=== PATIENT | male | born 1940 | race Caucasian/White ===

== ENCOUNTER 2018-10-14 17:00 | Inpatient (IN) ==
[2018-10-14] MEDS ORDERED: Vancomycin Inj 1,000 MG in Sodium Chlor 0.9% Inj 250 ML IV.SIG ONE (18:37)
[2018-10-14 18:58] LABS: Baso % (Auto) 0.4 % (0.0-2.0); Eos # (Auto) 0.1 th/mm3 (0.0-0.4); Eos % (Auto) 1.2 % (0.0-4.0); Hematocrit 34.6 % (39.0-51.0); Hemoglobin 11.3 gm/dL (13.0-17.0); Lymph # (Auto) 0.6 th/mm3 (1.0-4.8); Lymph % (Auto) 7.5 % (9.0-44.0); Mean Corpuscular HGB Conc 32.7 % (32.0-36.0); Mean Corpuscular Hemoglobin 28.5 pg (27.0-34.0); Mean Corpuscular Volume 87.1 fL (80.0-100.0); Mono % (Auto) 12.1 % (0.0-8.0); Neut # (Auto) 6.3 th/mm3 (1.8-7.7); Neut % (Auto) 78.8 % (16.0-70.0); Platelet Count 197 th/mm3 (150-450); Red Blood Count 3.97 mil/mm3 (4.50-5.90); Red Cell Distribution Width 18.6 % (11.6-17.2)
[2018-10-14 19:11] LABS: Albumin 2.7 g/dL (3.4-5.0); Anion Gap 8 meq/L (5-15); Aspartate Aminotransferase 20 U/L (15-37); Blood Urea Nitrogen 24 mg/dL (7-18); Calcium 8.4 mg/dL (8.5-10.1); Carbon Dioxide 29.7 meq/L (21.0-32.0); Chloride 98 meq/L (98-107); Glomerular Filtration Rate 58 mL/min (>89); Glucose,Random 297 mg/dL (74-106); Potassium 3.9 meq/L (3.5-5.1); Sodium 136 meq/L (136-145)
[2018-10-14 19:12] LABS: Alanine Aminotransferase 16 U/L (12-78)
[2018-10-14 19:14] LABS: Alkaline Phosphatase 138 U/L (45-117); Total Protein 7.3 g/dL (6.4-8.2)
--- NOTE | 2018-10-14 19:43 | ED ---
HPI General Chief complaint: Extremity Injury, Lower Stated complaint: feet/leg swollen Time Seen by Provider: 10/14/18 18:31 Source: patient Mode of arrival: ambulatory Limitations: no limitations History of Present Illness HPI narrative: Patient is a 78-year-old male who comes in complaining of pain and swelling to his left leg. 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 He is a chronic wound to the right foot and has some chronic discoloration of both legs due to peripheral vascular disease. His noticed that yesterday his foot became increasingly more red and today it started oozing. He does have some pain to this foot. He denies fever or chills. Severity is moderate. Related Data Home Medications Medication Instructions Recorded Confirmed clopidogrel [Plavix] 75 mg PO DAILY 10/14/18 10/14/18 duloxetine 20 mg PO DAILY 10/14/18 10/14/18 furosemide 40 mg PO DAILY 10/14/18 10/14/18 gabapentin 600 mg PO TID 10/14/18 10/14/18 insulin regular human [Novolin R 1 sliding scale dose SUBCUT UD 10/14/18 Regular U-100 Insuln] losartan 100 mg PO DAILY 10/14/18 10/14/18 simvastatin 20 mg PO QPM 10/14/18 10/14/18 warfarin 4.5 mg PO DAILY 10/14/18 10/14/18 Allergies Allergy/AdvReac Type Severity Reaction Status Date / Time amitriptyline Allergy Severe Bleeding Verified 10/14/18 18:15 codeine Allergy Mild NAUSEA Verified 10/14/18 18:15 VOMITING gabapentin Allergy Unknown TOO MUCH Verified 10/14/18 18:15 CONFUSION hydromorphone AdvReac Severe Hallucinati Unverified 05/30/17 17:51 ons;Confusi on *MDRO Multi-Drug Resistant Allergy Unknown Congestion Uncoded 10/14/18 18:15 Organism Review of Systems ROS: all other systems reviewed are negative Constitutional Denies chills and Denies fever(s) ENT Denies dizziness Cardiovascular Denies chest pain and Denies dyspnea Respiratory Denies cough and Denies dyspnea Gastrointestinal Denies nausea and Denies vomiting Musculoskeletal Denies myalgias and Denies arthralgias Integumentary/Breasts Reports change in pigmentation, Reports sores and Reports wounds Neurologic Denies focal weakness and Denies numbness [facility] Medical History Medical History CHF (congestive heart failure) (Acute) Depression (Acute) Diabetes (Acute) HTN (hypertension) (Acute) Hypercholesteremia (Acute) Neuropathy (Acute) Social History Social History Substance History: No History of Abuse Second Hand Smoke Exposure: No Smoking Status: Never smoker How Often Do You Have a Drink Containing Alcohol: Monthly or less Recent Travel in [facility] within the Last 8 Weeks: No Recent Out of Country Travel within the Last 8 Weeks: No Immunization History Tetanus Immunization: >5 Years Exam Narrative Exam Narrative: GENERAL: Awake and alert, no acute distress. SKIN: Redness and blistering of the left foot. Oozing from wounds to the foot. HEAD: Atraumatic. Normocephalic. EYES: Pupils equal and round. No scleral icterus. No injection or drainage. ENT: Mucous membranes pink and moist. NECK: Trachea midline. No JVD. CARDIOVASCULAR: Regular rate and rhythm. No murmur appreciated. RESPIRATORY: No accessory muscle use. Clear to auscultation. Breath sounds equal bilaterally. GASTROINTESTINAL: Abdomen soft, non-tender, nondistended. MUSCULOSKELETAL: No obvious deformities. No clubbing. No cyanosis. Bilateral lower extremity edema. Left pedal pulses not palpable, but can be heard with Doppler. There is partial amputation of the right foot. NEUROLOGICAL: Awake and alert. No obvious cranial nerve deficits. Motor grossly within normal limits. Normal speech. PSYCHIATRIC: Appropriate mood and affect; insight and judgment normal. Course Initial Documented Vital Signs Temperature 98.3 F 10/14/18 17:04 Pulse Rate 88 10/14/18 17:04 Respiratory Rate 20 10/14/18 17:04 Blood Pressure 156/72 H 10/14/18 17:04 Pulse Oximetry 96 10/14/18 17:04 Last Documented Vital Signs Temperature 98.3 F 10/14/18 17:04 Pulse Rate 64 10/14/18 19:34 Respiratory Rate 18 10/14/18 19:34 Blood Pressure 154/77 H 10/14/18 19:34 Pulse Oximetry 98 10/14/18 19:34 Medical Decision Making MDM Narrative Medical decision making narrative: Patient is a 78-year-old male who comes in complaining of redness, pain, oozing from his left foot. Exam shows large area of erythema with oozing of yellow pus. IV established, labs sent. Labs show normal white blood cell count, however neutrophil count is elevated. Patient given vancomycin. I believe he would benefit from at least an observation stay at this point. Admitted for further management. Medical Screen Exam Complete: Yes Emergency Medical Condition: Yes Differential Diagnosis Differential Diagnosis: Cellulitis versus abscess versus peripheral vascular disease Medical Records Medical records reviewed: Yes I reviewed the patient's medical records. Lab Data Lab results reviewed: Yes I reviewed the patient's lab results. Result diagrams: 10/14/18 18:42 10/14/18 18:42 Lab Results 10/14/18 10/14/18 10/14/18 Range/Units 18:42 18:42 18:42 WBC 8.0 (4.0-11.0) th/mm3 RBC 3.97 L (4.50-5.90) mil/mm3 Hgb 11.3 L (13.0-17.0) gm/dL Hct 34.6 L (39.0-51.0) % MCV 87.1 (80.0-100.0) fL MCH 28.5 (27.0-34.0) pg MCHC 32.7 (32.0-36.0) % RDW 18.6 H (11.6-17.2) % Plt Count 197 (150-450) th/mm3 MPV 9.0 (7.0-11.0) fL Neut % (Auto) 78.8 H (16.0-70.0) % Lymph % (Auto) 7.5 L (9.0-44.0) % [place] % (Auto) 12.1 H (0.0-8.0) % Eos % (Auto) 1.2 (0.0-4.0) % Baso % (Auto) 0.4 (0.0-2.0) % Neut # (Auto) 6.3 (1.8-7.7) th/mm3 Lymph # (Auto) 0.6 L (1.0-4.8) th/mm3 [place] # (Auto) 1.0 H (0.0-0.9) th/mm3 Eos # (Auto) 0.1 (0.0-0.4) th/mm3 Baso # (Auto) 0.0 (0.0-0.2) th/mm3 WBC Differential . Differential Comment Auto diff final Sodium 136 (136-145) meq/L Potassium 3.9 (3.5-5.1) meq/L Chloride 98 (98-107) meq/L Carbon Dioxide 29.7 (21.0-32.0) meq/L Anion Gap 8 (5-15) meq/L BUN 24 H (7-18) mg/dL Creatinine 1.22 (0.60-1.30) mg/dL Estimated GFR 58 L (>89) mL/min Random Glucose 297 H (74-106) mg/dL Lactic Acid 1.3 (0.4-2.0) mmol/L Calcium 8.4 L (8.5-10.1) mg/dL Total Bilirubin 0.9 (0.2-1.0) mg/dL AST 20 (15-37) U/L ALT 16 (12-78) U/L Alkaline Phosphatase 138 H (45-117) U/L Total Protein 7.3 (6.4-8.2) g/dL Albumin 2.7 L (3.4-5.0) g/dL Discharge Plan Discharge Disposition Patient Disposition: ED Admit(ED Internal Use Only) Discharge Condition Condition: Stable Discharge Details Diagnosis: Cellulitis Physicians Team ED Provider: Kenya Villafuerte Primary Care Provider: UNKNOWN, Rxs /Orders / Referrals /Forms Prescriptions: No Action furosemide 40 mg Tablet 40 mg PO DAILY RF: 0 gabapentin 600 mg Tablet 600 mg PO TID RF: 0 clopidogrel [Plavix] 75 mg Tablet 75 mg PO DAILY RF: 0 warfarin 4 mg Tablet 4.5 mg PO DAILY RF: 0 simvastatin 20 mg Tablet 20 mg PO QPM RF: 0 insulin regular human [Novolin R Regular U-100 Insuln] 100 unit/mL Solution 1 sliding scale dose SUBCUT UD RF: 0 losartan 100 mg Tablet 100 mg PO DAILY RF: 0 duloxetine 20 mg Capsule,Delayed Release(Dr/Ec) 20 mg PO DAILY RF: 0 Discharge Interventions Interventions: Vital Signs Last Done: 10/14/18 19:34 Status ED Status: With Doctor
--- NOTE | 2018-10-14 20:03 | XR ---
EXAM DATE: 10/14/2018 7:48 PM EST AGE/SEX: 78 years / Male INDICATIONS: Swelling, discolored, redness, weeping sores entire foot. CLINICAL DATA: This is the patient's initial encounter. Patient reports that signs and symptoms have been present for 3 days and indicates a pain score of 10/10. MEDICAL/SURGICAL HISTORY: Diabetes. Diabetes mellitus type II. . Diabetic ulcer debridement ri ght foot. Removal 5th metatarsal left foot. COMPARISON: No prior exams available for comparison. FINDINGS: There is amputation of the distal fifth metatarsal and toe. Extensive vascular calcifications present . Mild to moderate osteoarthritis. No acute fracture or dislocation. No bony destructive changes. CONCLUSION: Amputation fifth toe and metatarsal as above. No bony destructive changes. No acute fracture. Electronically signed by: Wil Camarena MD Board Certified Radiologist 10/14/2018 8:01 PM EST
[2018-10-14] MEDS ORDERED: Vancomycin Consult Pharmacy 1 EACH OTHER SCH (21:00)
[2018-10-14] MEDS ORDERED: Dextrose 50% in Water 50 ML Vial IV.PUSH PRN (21:09)
--- NOTE | 2018-10-14 21:09 | P.HP ---
History of Present Illness Service: [facility] Primary Care Physician: UNKNOWN Chief Complaint: 2 days of increasing swelling redness and oozing left foot and lower leg History of Present Illness: 78-year-old male who comes in complaining of pain and swelling to his left lower extremity. 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 Has chronic discoloration to both lower extremities due to severe peripheral vascular disease. Yesterday his noticed his foot becoming increasingly been more red and it started to ooze this was the left foot with pain to that area he denies fever or chills. Patient's lab work is essentially unremarkable does have a history of cardiomyopathy chronic heart murmur congestive heart failure diabetes depression hyperlipidemia chronic neuropathy atrial fibrillation he has had a pacemaker insertion CKD stage III coronary artery disease. Also has had a stated above left fifth toe amputation and right toe chronic wound and has been followed by [place] [facility] also has had the right toes of the right foot amputated. At this time and appears to have severe cellulitis will admit consult podiatry and will start him on IV vancomycin. Patient denies any fever, chills, chest pain, shortness of breath, nausea or vomiting. - Diagnosis (1) Cellulitis (2) Diabetes (3) CHF (congestive heart failure) (4) Neuropathy Inpatient Certification: I certify that the inpatient services were ordered in accordance with Medicare regulations governing the order. This includes certification that hospital inpatient services are reasonable and necessary and in the case of services not specified as inpatient-only under 42 CFR 419.22(n), that they are appropriately provided as inpatient services in accordance to with the 2-midnight benchmark under 43 CFR 412.3(e) Review of Systems All other systems reviewed negative except as stated in HPI PMFSH - History History Provided By: Patient - Medical History Medical History: Medical History (Last Reviewed 10/14/18 @ 21:05 by Isaac Quiroz MD) CHF (congestive heart failure) Depression Diabetes HTN (hypertension) Hypercholesteremia Neuropathy - Tobacco History Second Hand Smoke Exposure: No Smoking Status: Never smoker - Alcohol History How Often Do You Have a Drink Containing Alcohol: Monthly or less - Substance Use History Substance History: No History of Abuse - Travel History Recent Travel in the [facility] Within the Last 8 Weeks: No Recent Travel Out of the Country Within the Last 8 Weeks: No - Immunization History Tetanus Immunization: >5 Years Medications and Allergies Active Medications: Active Medications Clopidogrel Bisulfate (Plavix) 75 mg PO DAILY [facility] Duloxetine HCl (Cymbalta) 20 mg PO DAILY [facility] Furosemide (Lasix) 40 mg PO DAILY [facility] Pharmacy Profile Note (Vancomycin Consult Pharmacy) 0 mls @ 0 mls/hr OTHER [facility] Non-Formulary Medication (Gabapentin [Gabapentin]) 600 mg PO TID [facility] Non-Formulary Medication (Losartan [Losartan]) 100 mg PO DAILY [facility] Non-Formulary Medication (Simvastatin [Simvastatin]) 20 mg PO QPM [facility] Warfarin Sodium (Coumadin) 4.5 mg PO DAILY [facility] Allergies Allergy/AdvReac Type Severity Reaction Status Date / Time amitriptyline Allergy Severe Bleeding Verified 10/14/18 18:15 codeine Allergy Mild NAUSEA Verified 10/14/18 18:15 VOMITING gabapentin Allergy Unknown TOO MUCH Verified 10/14/18 18:15 CONFUSION hydromorphone AdvReac Severe Hallucinati Unverified 05/30/17 17:51 ons;Confusi on *MDRO Multi-Drug Resistant Allergy Unknown Congestion Uncoded 10/14/18 18:15 Organism Home Medications Medication Instructions Recorded Confirmed Type clopidogrel [Plavix] 75 mg PO DAILY 10/14/18 10/14/18 History duloxetine 20 mg PO DAILY 10/14/18 10/14/18 History furosemide 40 mg PO DAILY 10/14/18 10/14/18 History gabapentin 600 mg PO TID 10/14/18 10/14/18 History insulin regular human [Novolin R 1 sliding scale dose SUBCUT UD 10/14/18 History Regular U-100 Insuln] losartan 100 mg PO DAILY 10/14/18 10/14/18 History simvastatin 20 mg PO QPM 10/14/18 10/14/18 History warfarin 4.5 mg PO DAILY 10/14/18 10/14/18 History Exam Vital signs: Vital Signs 10/14/18 17:04 10/14/18 18:18 10/14/18 19:34 Temperature 98.3 F Pulse Rate 88 88 64 Respiratory Rate 20 22 18 Blood Pressure 156/72 H 168/74 H 154/77 H Pulse Oximetry 96 96 98 Intake & Output 10/14/18 10/14/18 10/15/18 06:59 18:59 06:59 Intake Total 250 / 250 Balance 250 / 250 Weight 81.647 kg Intake: IV 250 / 250 Vancomycin Inj 1,000 MG In NS 250 / 250 Inj 250 ML @ 250 mls/hr IV.SIG ONCE ONE Rx#:[id number] Narrative: GENERAL: SKIN: Warm and dry. Redness oozing,edema left foot with large area of erythema , chronic peripheral vascular changes bilateral extremities HEAD: Normocephalic. EYES: No scleral icterus. No injection or drainage. NECK: Supple, trachea midline. No JVD or lymphadenopathy. CARDIOVASCULAR: Regular rate and rhythm without murmurs, gallops, or rubs. RESPIRATORY: Breath sounds equal bilaterally. No accessory muscle use. GASTROINTESTINAL: Abdomen soft, non-tender, nondistended. MUSCULOSKELETAL: No cyanosis, or edema. BACK: Nontender without obvious deformity. No CVA tenderness. Results - Labs CBC & Chem 7: 10/14/18 18:42 10/14/18 18:42 Labs: Laboratory Results - last 24 hr 10/14/18 10/14/18 10/14/18 18:42 18:42 18:42 WBC 8.0 RBC 3.97 L Hgb 11.3 L Hct 34.6 L MCV 87.1 MCH 28.5 MCHC 32.7 RDW 18.6 H Plt Count 197 MPV 9.0 Neut % (Auto) 78.8 H Lymph % (Auto) 7.5 L [place] % (Auto) 12.1 H Eos % (Auto) 1.2 Baso % (Auto) 0.4 Neut # (Auto) 6.3 Lymph # (Auto) 0.6 L [place] # (Auto) 1.0 H Eos # (Auto) 0.1 Baso # (Auto) 0.0 WBC Differential . Differential Comment Auto diff final Sodium 136 Potassium 3.9 Chloride 98 Carbon Dioxide 29.7 Anion Gap 8 BUN 24 H Creatinine 1.22 Estimated GFR 58 L Random Glucose 297 H Lactic Acid 1.3 Calcium 8.4 L Total Bilirubin 0.9 AST 20 ALT 16 Alkaline Phosphatase 138 H Total Protein 7.3 Albumin 2.7 L - Imaging Impressions Foot X-Ray 10/14/18 18:37 CONCLUSION: Amputation fifth toe and metatarsal as above. No bony destructive changes. No acute fracture. Caprini VTE Risk Assessment Caprini VTE Risk Assessment: Moderate/High Risk (score >= 2) Caprini Risk Assessment Model: Point Value = 1 Point Value = 2 Point Value = 3 Point Value = 5 Age 41-60 Minor surgery BMI > 25 kg/m2 Swollen legs Varicose veins or History of unexplained or recurrent spontaneous Oral contraceptives or hormone replacement Sepsis (< 1 month) Serious lung disease, including pneumonia (< 1 month) Abnormal pulmonary function Acute myocardial infarction Congestive heart failure (< 1 month) History of inflammatory bowel disease Medical patient at bed rest Age 61-74 Arthroscopic surgery Major open surgery (> 45 min) Laparoscopic surgery (> 45 min) Malignancy Confined to bed (> 72 hours) Immobilizing plaster cast Central venous access Age >= 75 History of VTE Family history of VTE Factor V Leiden Prothrombin [id number] Lupus anticoagulant Anticardiolipin antibodies Elevated serum homocysteine Heparin-induced thrombocytopenia Other congenital or acquired thrombophilia Stroke (< 1 month) Elective arthroplasty Hip, pelvis, or leg fracture Acute spinal cord injury (< 1 month) Prophylaxis Regimen: Total Risk Factor Score Risk Level Prophylaxis Regimen 0-1 Low Early ambulation 2 Moderate Order ONE of the following: *Sequential Compression Device (SCD) *Heparin 5000 units SQ BID 3-4 Higher Order ONE of the following medications: *Heparin 5000 units SQ TID *Enoxaparin/Lovenox 40 mg SQ daily (WT < 150 kg, CrCl > 30 mL/min) *Enoxaparin/Lovenox 30 mg SQ daily (WT < 150 kg, CrCl > 10-29 mL/min) *Enoxaparin/Lovenox 30 mg SQ BID (WT < 150 kg, CrCl > 30 mL/min) AND/OR *Sequential Compression Device (SCD) 5 or more Highest Order ONE of the following medications: *Heparin 5000 units SQ TID (Preferred with Epidurals) *Enoxaparin/Lovenox 40 mg SQ daily (WT < 150 kg, CrCl > 30 mL/min) *Enoxaparin/Lovenox 30 mg SQ daily (WT < 150 kg, CrCl > 10-29 mL/min) *Enoxaparin/Lovenox 30 mg SQ BID (WT < 150 kg, CrCl > 30 mL/min) AND *Sequential Compression Device (SCD) Assessment and Plan - Assessment (1) Cellulitis Code(s): L03.90 - Cellulitis, unspecified Status: Acute Plan: Left foot severe cellulitis will empirically start on vancomycin obtain podiatry consult x-ray essentially is unremarkable patient has a pacemaker unable to do MRI will await podiatry evaluation if we need to do CT scan (2) Diabetes Code(s): E11.9 - Type 2 diabetes mellitus without complications Status: Acute Plan: Patient is on sliding scale coverage (3) CHF (congestive heart failure) Code(s): I50.9 - Heart failure, unspecified Status: Acute Plan: Patient is on daily medication for his congestive heart failure (4) Neuropathy Code(s): G62.9 - Polyneuropathy, unspecified Status: Acute Plan: On gabapentin - Plan Further plan as case develops patient also has a history of atrial fib and has a pacemaker is on chronic Coumadin Code Status: Full Discussed Condition With: Patient (1) Cellulitis Qualifiers: Site of cellulitis: extremity Site of cellulitis of extremity: lower extremity Laterality: left Qualified Code(s): L03.116 - Cellulitis of left lower limb
[2018-10-14] MEDS ORDERED: Acetaminophen 325 MG Tablet PO PRN (21:10)
[2018-10-14] MEDS ORDERED: Vancomycin Inj 750 MG in Sodium Chlor 0.9% Inj 250 ML IV.SIG SCH (22:00)
[2018-10-15] MEDS: Insulin NovoLOG Aspart Correctional Sugar Inj SQ SCH ×4 (00:50→17:27)
[2018-10-15 07:15] LABS: Baso % (Auto) 0.5 % (0.0-2.0); Eos # (Auto) 0.1 th/mm3 (0.0-0.4); Eos % (Auto) 1.4 % (0.0-4.0); Hematocrit 33.1 % (39.0-51.0); Hemoglobin 10.8 gm/dL (13.0-17.0); Lymph # (Auto) 0.6 th/mm3 (1.0-4.8); Lymph % (Auto) 10.1 % (9.0-44.0); Mean Corpuscular HGB Conc 32.7 % (32.0-36.0); Mean Corpuscular Hemoglobin 28.9 pg (27.0-34.0); Mean Corpuscular Volume 88.4 fL (80.0-100.0); Mean Platelet Volume 8.8 fL (7.0-11.0); Mono # (Auto) 0.7 th/mm3 (0.0-0.9); Neut # (Auto) 4.3 th/mm3 (1.8-7.7); Platelet Count 179 th/mm3 (150-450); Red Blood Count 3.74 mil/mm3 (4.50-5.90); Red Cell Distribution Width 18.8 % (11.6-17.2); White Blood Count 5.7 th/mm3 (4.0-11.0)
[2018-10-15 07:38] LABS: Calcium 8.1 mg/dL (8.5-10.1); Carbon Dioxide 29.2 meq/L (21.0-32.0); Potassium 3.9 meq/L (3.5-5.1)
[2018-10-15] MEDS: Senna/Docusate Sodium 8.6/50 MG Tablet PO SCH ×3 (09:43→21:05)
[2018-10-15] MEDS: Gabapentin 300 MG Capsule PO SCH ×3 (09:44→17:27)
[2018-10-15] MEDS: Furosemide 40 MG Tablet PO SCH (09:45)
--- NOTE | 2018-10-15 11:20 | P.PNIM ---
Subjective Interval history: Pt LLE swelling and redness is slightly improved according to the pts . Afebrile. Physical Exam Vital signs: Last Vital Signs Temp 98.5 F 10/15/18 08:00 Pulse 82 10/15/18 08:00 Resp 16 10/15/18 08:00 BP 156/69 H 10/15/18 08:00 Pulse Ox 94 L 10/15/18 08:00 Narrative: General: NAD, AAOx3 Chest: CTA Cardiac: Regular Abd: +BS, soft ND/NT Ext: Right foot with previous amputation of all toes, chronic wound on the right lateral foot withtou any drainage or erythema. Left LE with previous 5th digit amputation, bright red erythema of the foot and calf with chronic venous stasis skin changes. Results Labs CBC & Chem 7: 10/15/18 06:54 10/15/18 06:54 Imaging Foot X-Ray 10/14/18 18:37 CONCLUSION: Amputation fifth toe and metatarsal as above. No bony destructive changes. No acute fracture. Assessment and Plan Assessment (1) Cellulitis: Code(s): L03.90 - Cellulitis, unspecified Status: Acute (2) Diabetes: Code(s): E11.9 - Type 2 diabetes mellitus without complications Status: Acute (3) CHF (congestive heart failure): Code(s): I50.9 - Heart failure, unspecified Status: Acute (4) Neuropathy: Code(s): G62.9 - Polyneuropathy, unspecified Status: Acute Plan Cellulitis on left foot Chronic wound on right foot PAD with hx of LE vascular stenting - Pt is a 78 y/o male with diabetes mellitus, atrial fibrillation, CAD, CKD, stage III, PAD, HTN, and CHF/cardiomyopathy with EF 20-25% and has a pacemaker. - Pt presented to the ED on 10/14/18 with complaints of pain and swelling to his left lower extremity. 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 Yesterday his noticed his left foot becoming increasingly more red and it started to ooze. 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 Pt has right toe chronic wound and has been followed by [place] [facility] - Pt was admitted with severe cellulitis and started on Vancomycin - Vancomycin with pharmacy dosing - Podiatry consult is pending - Xray of the left foot (10/14/18): - Amputation fifth toe and metatarsal as above. No bony destructive changes. No acute fracture - Pt continued on his Plavix - Supportive care CHF/Cardiomyopathy with EF 20-25% - Outpt 2D echo (09/27/18): - Mild LVH, estimated EF 20-25% - LA is moderately dilated. RA is mildly dilated - Mildly thickened mitral valve leaflets. Calcifications of both mitral valve leaflets with mild mitral regurg - Aortic valve sclerosis, trace aortic valve regurgitation - Mild to moderate tricuspid valve regurg - Estimated PA pressure 52.6mmHg - Pt continued on Lasix 40mg daily, losartan 100mg daily A. fib - Pt is on Coumadin 5mg , 2.5 Mo- - Check INR CKD, stage III - Labs are stable, Cr typically around 0.8 per outpt records Diabetes mellitus - Pt is on Novolin R 30 units daily at home - Pt is currently on NovoLog SSI - Accu checks Progress Note: Quality VTE Deep Vein Thrombosis/Pulmonary Embolism Present on Admission: No _ (1) Diabetes Qualifiers: Diabetes mellitus type: type 2 (2) CHF (congestive heart failure) Qualifiers: Heart failure chronicity: Heart failure type: (3) Cellulitis Qualifiers: Laterality: left Site of cellulitis: extremity Site of cellulitis of extremity: lower extremity Site of cellulitis of trunk: Qualified Code(s): L03.116 - Cellulitis of left lower limb
[2018-10-15 14:10] LABS: INR 1.8 Ratio; Prothrombin Time 18.2 sec (9.8-11.6)
--- NOTE | 2018-10-15 17:47 | MB ---
cc: Arnoldo York DPM DATE: 10/15/2018 REASON FOR CONSULTATION: Bilateral lower extremity infection, right foot chronic ulcer, left foot, possible cellulitis abscess. HISTORY OF PRESENT ILLNESS: This is a 78-year-old male, who is well known to my partner, Dr. Natarajan. The patient has had a transmetatarsal amputation of the right foot in the past and a 5th digit amputation in the past. Apparently, over the last few days, the patient had significant drainage and inflammation of the left lower extremity. The patient has been admitted to the hospital, received antibiotics and appears to have improved. The patient also states that the right foot ulcer has been debrided, biopsied several times, really just has a hard time healing. The patient is known to Dr. Haynes for vascular intervention, the patient is having no significant pain at this point. Denies subjective fevers. PAST MEDICAL HISTORY: Positive for CHF, depression, diabetes, hypertension, hypercholesteremia, and neuropathy. ALLERGIES: 1. AMITRIPTYLINE 2. CODEINE. 3. GABAPENTIN 4. HYDROMORPHONE. 5. A HISTORY OF MULTIDRUG RESISTANT ORGANISM. ACTIVE INPATIENT MEDICATIONS: P.r.n. medications: The patient is receiving insulin, Coumadin, and vancomycin. Please see complete active medication list in chart. OUTPATIENT MEDICATIONS: Reviewed. The patient usually is on Plavix. PAST SURGICAL HISTORY: Pertaining to the lower extremity, a transmetatarsal amputation of the right and left 5th digit amputation on the left. None in the recent future. PHYSICAL EXAMINATION: VITAL SIGNS: Temperature is 98.8, pulse rate is 67, respiratory rate is 17, blood pressure is 151/67. The patient is saturating 93% on room air. GENERAL: This is an alert and oriented gentleman seen at bedside exhibiting nonlabored respirations. EXTREMITIES: Bilateral lower extremities are exam appear to be chronic skin changes below the bilateral knees. There appears to be a chronic brown thin skin diffusely. The plantar right foot is examined. There is noted to be an approximately 2 cm x 1 cm x 2 mm nonprobing fully granular, minimal hyperkeratotic rim of the wound. It does not probe to bone. There is no drainage. There is no redness. There is no swelling. Upon attempting to palpate pulses in the right lower extremity, there is difficulty, but the patient appears to have a well-healed transmetatarsal amputation stump with decreased sensation to light touch with intact ankle. Left lower extremity was examined. There is noted to be expansile erythema superficial honey-colored crusting to the digits dorsum of the foot all the way up to the ankle. The foot has active hyperemia that appears to be semi-blanchable. Interdigital spaces are examined. There is no obvious ulcer, abscess or probing tunneling or tracking. There is no obvious ulcer to speak or puncture wound. The erythema extends up to the distal ankle. Pulses on the left are hard to palpate. Sensation decreased to light touch. No crepitus or instability. No soft tissue emphysema palpated. LABORATORY DATA: White blood cell trending down 8 to 5.7, hemoglobin and hematocrit, 10 and 33, platelet count is 179. Neutrophils are 75. Coagulation profile: PT 18.2, INR 1.8. Chem-7: Sodium 141, potassium 3.9, chloride 105, CO2 is 29.2, BUN is 20, creatinine 0.95. Random glucose is 228, calcium is 8.1. X-ray findings: Current x-rays of the left lower extremity. There appears to be osteopenic changes without any obvious signs of foreign body or bony destructive process. Right foot stump x-rays were ordered. I reviewed case with medicine. CTA with runoff has also been ordered. ASSESSMENT AND PLAN: 1. Right lower extremity chronic ulceration. 2. Left lower extremity cellulitis with expansile erythema bilateral PVD. RECOMMENDATION: Continue IV antibiotics. We will order Santyl ointment to the right foot to be changed daily. No surgical intervention planned at this point. We will follow along pending vascular consultation, presumed after a CTA with runoff. We reviewed the case with medicine. I will round and check on the patient in the next 24 hours to see if there is improvement. JANIS Sawyer/mayito , 05:16 PM , 05:25 PM
--- NOTE | 2018-10-15 19:07 | XR ---
EXAM DATE: 10/15/2018 7:02 PM EST AGE/SEX: 78 years / Male INDICATIONS: Evaluate for inflammation of the right foot. CLINICAL DATA: This is the patient's initial encounter. Patient reports that signs and symptoms have been present for 3 days and indicates a pain score of Nonresponsive. MEDICAL/SURGICAL HISTORY: Congestive heart failure. . Amputation right toes COMPARISON: [facility] [place] ([id number]), 08/27/2013. . FINDINGS: Patient is status post transmetatarsal amputation, extended from previous exam. There is diffuse oste openia which limits overall evaluation. Diffuse soft tissue prominence about the amputation stump wit h subtle cortical irregularity involving the fifth metatarsal amputation. CONCLUSION: 1. Status post transmetatarsal amputation. 2. Diffuse soft tissue prominence about the amputation stump with subtle cortical irregularity invol ving the fifth metatarsal. Cannot exclude early osteomyelitis in the appropriate clinical setting. Electronically signed by: Santiago Moody MD Board Certified Radiologist 10/15/2018 7:06 PM MELY Melendez
[2018-10-15] MEDS: Vancomycin Inj 1,500 MG in Sodium Chlor 0.9% Inj 500 ML IV.SIG SCH (21:02)
--- NOTE | 2018-10-15 21:40 | CT ---
EXAM DATE: 10/15/2018 9:17 PM EST AGE/SEX: 78 years / Male INDICATIONS: Lower leg pain and discoloration CLINICAL DATA: This is the patient's initial encounter. Patient reports that signs and symptoms have been present for 1 day and indicates a pain score of 5/10. MEDICAL/SURGICAL HISTORY: Congestive heart failure. Diabetes. Hypertension. None. RADIATION DOSE: 4.70 CTDI (mGy) COMPARISON: No prior exams available for comparison. TECHNIQUE: Volumetric scanning was performed using a multi-row detector CT scanner during bolus infu lizet of 100 ml Omnipaque 350 (iohexol) nonionic water-soluble contrast as a single exam dose. The data was post processed with a variety of visualization algorithms including full volume maximum inte nsity projection, multi-planar sliding thin slab reformation, curved planar reformation, and surface rendering techniques. Using automated exposure control and adjustment of the mA and/or kV according to patient size, radiation dose was kept as low as reasonably achievable to obtain optimal diagnostic quality images. DICOM format image data is available electronically for review and comparison. FINDINGS: Angiographic Findings: Abdominal Aorta: Dense atherosclerotic calcifications of the infrarenal abdominal aorta with diffuse oeqh-sd-xvgnoldz stenosis distally near the bifurcation. Renal Arteries: Single bilateral renal arteries. Moderate to severe stenosis of the proximal renal ar teries bilaterally, more prominent on the left. Mesenteric Arteries: Moderate stenosis of the sacroiliac origin. SMA is patent. ALYSSA is grossly patent . Right side: Inflow: Bulky calcified plaque in the common iliac artery with resultant moderate focal stenosis dist ally at the bifurcation. Hypogastric is diffusely diseased but grossly patent. External iliac artery is patent. Bulky eccentric calcified plaque in the common femoral artery with long segment moderate s tenosis. Outflow: Profunda is patent. There is an SFA stent which extends from near the origin of the SFA to t he adductor canal. Diffuse long segment moderate stenosis of the distal SFA stent. Diffusely calcifie d popliteal artery with tandem mild stenoses. Runoff: Diffusely calcified runoff vessels which limits overall evaluation. Anterior tibial artery ap pears occluded beyond the origin. Diffuse disease involving the tibial peroneal trunk and proximal po sterior tibial and peroneal arteries. Two-vessel runoff. Left side: Inflow: Bulky calcified plaque in the common iliac artery with resultant long segment mild to moderat e stenosis. Diffusely diseased but grossly patent hypogastric. External iliac artery is patent. The c ommon femoral artery is patent. Outflow: The profunda is patent. There are multiple stents in the SFA with intervening segments in th e mid to distal thigh. Suboptimal visualization of the distal middle segments with severe stenosis of the distal stent origin secondary to eccentric calcified plaque. There is at least critical IntraSte nt stenosis or occlusion of the proximal stent. Popliteal artery is diffusely diseased and heavily ca lcified distally below the knee. Runoff: Heavily calcified runoff vessels which significantly limits overall evaluation of patency. An terior tibial arteries occluded at the origin. Two-vessel runoff. General Findings: LOWER LUNGS: Trace bilateral pleural effusions and associated airspace disease at the lung bases. LIVER: Diffusely decreased hepatic density without intrahepatic ductal dilatation. Multiple gallston es in the gallbladder. SPLEEN: Homogeneous density without enlargement. PANCREAS: Unremarkable without mass or calcification. KIDNEYS: Kidneys are symmetrical in size without evidence for hydronephrosis or radiopaque renal alex culi. ADRENAL GLANDS: Unremarkable. BOWEL/MESENTERY: Moderate amount of stool throughout the colon. No dilated loops of small bowel. No free fluid or drainable fluid collections. No pneumatosis or free air. ABDOMINAL WALL: Intact. RETROPERITONEUM: No evidence of adenopathy in the retrocrural, para-aortic, or deep pelvic regions. BLADDER: Contours are smooth. REPRODUCTIVE: Nonspecific prostate enlargement. INGUINAL: The inguinal region is unremarkable without evidence of adenopathy. BONY STRUCTURES: Right femoral intramedullary gayle fixation. Extensive degenerative spondylosis of th e lower lumbar spine. CONCLUSION: 1. 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 2. Moderate to severe stenosis of the proximal renal arteries bilaterally, more prominent on the lef t. 3. Bulky calcified plaque in the common iliac arteries bilaterally with moderate focal stenosis dist ally on the right and long segment mild to moderate stenosis on the left. 4. Right is effaced nearly entirely stented with diffuse long segment moderate stenosis of the dista l right SFA stent. 5. Multiple stents in the left SFA with intervening [place] SFA moderate severe stenoses as well as c ritical stenosis/occlusion of the proximal distal stent. 6. Heavily calcified popliteal arteries bilaterally with diffusely calcified runoff vessels signific antly limiting evaluation for patency. Two-vessel runoff to the feet. 7. Trace bilateral pleural effusions. 8. Additional ancillary findings, as above. Electronically signed by: Santiago Moody MD Board Certified Radiologist 10/15/2018 9:39 PM MELY T
[2018-10-16] MEDS: Insulin NovoLOG Aspart Correctional Sugar Inj SQ SCH ×4 (00:57→17:19)
[2018-10-16] MEDS: Senna/Docusate Sodium 8.6/50 MG Tablet PO SCH ×2 (09:51→21:02)
[2018-10-16] MEDS: Gabapentin 300 MG Capsule PO SCH ×3 (09:51→17:19)
[2018-10-16] MEDS: Furosemide 40 MG Tablet PO SCH (09:52)
[2018-10-16 10:56] LABS: Baso % (Auto) 0.4 % (0.0-2.0); Eos # (Auto) 0.1 th/mm3 (0.0-0.4); Hematocrit 34.3 % (39.0-51.0); Hemoglobin 11.2 gm/dL (13.0-17.0); Lymph # (Auto) 0.6 th/mm3 (1.0-4.8); Lymph % (Auto) 10.3 % (9.0-44.0); Mean Corpuscular HGB Conc 32.6 % (32.0-36.0); Mean Corpuscular Volume 88.9 fL (80.0-100.0); Mono # (Auto) 0.8 th/mm3 (0.0-0.9); Mono % (Auto) 13.6 % (0.0-8.0); Neut # (Auto) 4.4 th/mm3 (1.8-7.7); Neut % (Auto) 73.7 % (16.0-70.0); Platelet Count 219 th/mm3 (150-450); Red Blood Count 3.86 mil/mm3 (4.50-5.90); Red Cell Distribution Width 19.5 % (11.6-17.2)
[2018-10-16 11:00] LABS: INR 1.6 Ratio; Prothrombin Time 16.6 sec (9.8-11.6)
[2018-10-16 11:22] LABS: Albumin 2.4 g/dL (3.4-5.0); Anion Gap 6 meq/L (5-15); Aspartate Aminotransferase 14 U/L (15-37); Blood Urea Nitrogen 26 mg/dL (7-18); Calcium 8.5 mg/dL (8.5-10.1); Carbon Dioxide 28.8 meq/L (21.0-32.0); Chloride 103 meq/L (98-107); Glomerular Filtration Rate 61 mL/min (>89); Glucose,Random 137 mg/dL (74-106); Potassium 3.9 meq/L (3.5-5.1); Sodium 138 meq/L (136-145)
[2018-10-16 11:26] LABS: Alanine Aminotransferase 14 U/L (12-78); Alkaline Phosphatase 135 U/L (45-117); Total Protein 7.3 g/dL (6.4-8.2)
--- NOTE | 2018-10-16 14:33 | P.PNIM ---
Subjective Interval history: Pt has less swelling in the LLE but still erythematous and tender to the touch. Afebrile Physical Exam Vital signs: Last Vital Signs Temp 97.2 F L 10/16/18 12:00 Pulse 71 10/16/18 12:00 Resp 13 10/16/18 12:00 BP 128/61 10/16/18 12:00 Pulse Ox 93 L 10/16/18 12:00 Narrative: General: NAD, AAOx3 Chest: CTA Cardiac: Regular Abd: +BS, soft ND/NT Ext: Right foot with previous amputation of all toes, chronic wound on the right lateral foot without any drainage or erythema. Left LE with previous 5th digit amputation, erythema of the foot and calf with chronic venous stasis skin changes, less swelling today Results Labs CBC & Chem 7: 10/16/18 10:24 10/16/18 10:24 Imaging Foot X-Ray 10/14/18 18:37 CONCLUSION: Amputation fifth toe and metatarsal as above. No bony destructive changes. No acute fracture. Aorta w/Runoff CTA 10/15/18 00:00 CONCLUSION: 1. 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 2. Moderate to severe stenosis of the proximal renal arteries bilaterally, more prominent on the left. 3. Bulky calcified plaque in the common iliac arteries bilaterally with moderate focal stenosis distally on the right and long segment mild to moderate stenosis on the left. 4. Right is effaced nearly entirely stented with diffuse long segment moderate stenosis of the distal right SFA stent. 5. Multiple stents in the left SFA with intervening [place] SFA moderate severe stenoses as well as critical stenosis/occlusion of the proximal distal stent. 6. Heavily calcified popliteal arteries bilaterally with diffusely calcified runoff vessels significantly limiting evaluation for patency. Two-vessel runoff to the feet. 7. Trace bilateral pleural effusions. 8. Additional ancillary findings, as above. Foot X-Ray 10/15/18 00:00 CONCLUSION: 1. Status post transmetatarsal amputation. 2. Diffuse soft tissue prominence about the amputation stump with subtle cortical irregularity involving the fifth metatarsal. Cannot exclude early osteomyelitis in the appropriate clinical setting. Assessment and Plan Assessment (1) Cellulitis: Code(s): L03.90 - Cellulitis, unspecified Status: Acute (2) Diabetes: Code(s): E11.9 - Type 2 diabetes mellitus without complications Status: Acute (3) CHF (congestive heart failure): Code(s): I50.9 - Heart failure, unspecified Status: Acute (4) Neuropathy: Code(s): G62.9 - Polyneuropathy, unspecified Status: Acute Plan Cellulitis on left foot Chronic wound on right foot PAD with hx of LE vascular stenting - Pt is a 78 y/o male with diabetes mellitus, atrial fibrillation, CAD, CKD, stage III, PAD, HTN, and CHF/cardiomyopathy with EF 20-25% and has a pacemaker. - Pt presented to the ED on 10/14/18 with complaints of pain and swelling to his left lower extremity. 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 Yesterday his noticed his left foot becoming increasingly more red and it started to ooze. 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 Pt has right toe chronic wound and has been followed by [facility] - Pt was admitted with severe cellulitis and started on Vancomycin - Vancomycin with pharmacy dosing - Appreciate Podiatry consult - No surgical intervention is planned at this time for the chronic right foot wound. - Xray of the left foot (10/14/18): - Amputation fifth toe and metatarsal as above. No bony destructive changes. No acute fracture - Pt continued on his Plavix - Aorta w/Runoff CTA (10/15/18) 1. 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 2. Moderate to severe stenosis of the proximal renal arteries bilaterally, more prominent on the left. 3. Bulky calcified plaque in the common iliac arteries bilaterally with moderate focal stenosis distally on the right and long segment mild to moderate stenosis on the left. 4. Right is effaced nearly entirely stented with diffuse long segment moderate stenosis of the distal right SFA stent. 5. Multiple stents in the left SFA with intervening [place] SFA moderate severe stenoses as well as critical stenosis/occlusion of the proximal distal stent. 6. Heavily calcified popliteal arteries bilaterally with diffusely calcified runoff vessels significantly limiting evaluation for patency. Two-vessel runoff to the feet. 7. Trace bilateral pleural effusions. 8. Additional ancillary findings, as documented in the radiology report - Consult to Vascular surgery. CHF/Cardiomyopathy with EF 20-25% - Outpt 2D echo (09/27/18): - Mild LVH, estimated EF 20-25% - LA is moderately dilated. RA is mildly dilated - Mildly thickened mitral valve leaflets. Calcifications of both mitral valve leaflets with mild mitral regurg - Aortic valve sclerosis, trace aortic valve regurgitation - Mild to moderate tricuspid valve regurg - Estimated PA pressure 52.6mmHg - Pt continued on Lasix 40mg daily, losartan 100mg daily A. fib - Pt is on Coumadin 5mg , 2.5 Mo-- - INR 1.9 (10/15/18) --> 1.6 (10/16/18) - Repeat INR in AM CKD, stage III - Labs are stable, Cr typically around 0.8 per outpt records Diabetes mellitus - Pt is on Novolin R 30 units daily at home - Pt is currently on NovoLog SSI - Accu checks Progress Note: Quality VTE Deep Vein Thrombosis/Pulmonary Embolism Present on Admission: No _ (1) Diabetes Qualifiers: Chronic kidney disease stage: Diabetes mellitus complication detail: Diabetes mellitus complication status: Diabetes mellitus collar starcher insulin use : Diabetes mellitus macular edema: Diabetes mellitus type: type 2 Diabetic retinopathy severity: Laterality: Proliferative retinopathy type: (2) CHF (congestive heart failure) Qualifiers: Heart failure chronicity: Heart failure type: (3) Cellulitis Qualifiers: Laterality: left Site of cellulitis: extremity Site of cellulitis of extremity: lower extremity Site of cellulitis of trunk: Qualified Code(s): L03.116 - Cellulitis of left lower limb
[2018-10-16] MEDS: Collagenase Oint 30 GM Tube TOPICAL SCH (15:30)
--- NOTE | 2018-10-16 15:34 | P.PNPOD ---
Subjective Interval history: No events overnight seen bedside with they understand circulation is issue and we are waiting on vascular recommendations Physical Exam Vital signs: Vital Signs 10/15/18 16:00 10/15/18 20:00 10/16/18 00:00 Temperature 98.1 F 97.5 F L 99.5 F Pulse Rate 87 87 76 Respiratory Rate 18 16 16 Blood Pressure 174/81 H 148/67 H 126/60 Pulse Oximetry 93 L 95 92 L 10/16/18 04:00 10/16/18 08:00 10/16/18 12:00 Temperature 97.8 F 97.4 F L 97.2 F L Pulse Rate 71 66 71 Respiratory Rate 18 15 13 Blood Pressure 126/58 L 129/57 L 128/61 Pulse Oximetry 90 L 93 L 93 L Intake & Output 10/15/18 10/16/18 10/16/18 18:59 06:59 18:59 Intake Total 480 / 480 515 / 515 Output Total 850 / 850 600 / 600 Balance -370 / -370 -85 / -85 Intake: IV 515 / 515 Vancomycin Inj 1,500 MG In NS 515 / 515 Inj 500 ML @ 250 mls/hr IV.SIG Q24H [facility] Rx#:[id number] Oral 480 / 480 Output: Urine 850 / 850 600 / 600 Other: Date of Last Bowel Movement 10/13/18 10/13/18 10/13/18 # Bowel Movements 0 - Constitutional no acute distress - Neurological Alert and oriented x3 - Routine Extremities Exam Comments: Right lower extremity, well-healed distal TMA site, plantar lateral ulcer beneath the cuboid fifth met area minimal hyperkeratotic rim mainly granular base minimal serous drainage foot is warm pulses hard to palpate sensation decreased to light touch Left lower extremity improved edema however redness and now superficial ulcerations remain expansile dorsal aspect of midfoot digits but no obvious necrosis of digits foot is warm pulses nonpalpable sensation decreased to light touch Medications and Allergies Active Medications: Active Medications Acetaminophen (Tylenol) 650 mg PO Q4H PRN PRN Reason: Temp > 100.4 Clonidine HCl (Catapres) 0.1 mg PO Q6H PRN PRN Reason: SBP>160, DBP>90 Last Admin: 10/15/18 16:22 Dose: 0.1 mg Clopidogrel Bisulfate (Plavix) 75 mg PO DAILY [facility] Last Admin: 10/16/18 09:51 Dose: 75 mg Collagenase (Santyl Oint) 1 applicatio TOPICAL DAILY [facility] Dextrose (D50w Vial) 50 ml IV.PUSH UNSCH PRN PRN Reason: PER HYPOGLYCEMIA PROTOCOL Duloxetine HCl (Cymbalta) 20 mg PO DAILY [facility] Last Admin: 10/16/18 09:51 Dose: 20 mg Enalaprilat (Vasotec Inj) 1.25 mg IV.PUSH Q6H PRN PRN Reason: SBP>160, DBP>90 Furosemide (Lasix) 40 mg PO DAILY [facility] Last Admin: 10/16/18 09:52 Dose: 40 mg Gabapentin (Neurontin) 600 mg PO TID [facility] Last Admin: 10/16/18 12:18 Dose: 600 mg Glucagon (Glucagon Inj) 1 mg OTHER PRN PRN PRN Reason: for Hypoglycemia Protocol Pharmacy Profile Note (Vancomycin Consult Pharmacy) 0 mls @ 0 mls/hr OTHER UNSCH [facility] Vancomycin HCl 1,500 mg/ (Sodium Chloride) 515 mls @ 250 mls/hr IV.SIG Q24H [facility] Last Infusion: 10/15/18 23:06 Dose: Infused Insulin Aspart (Novolog Insulin Correctional Sugar Inj) 0 unit SQ Q6HR [facility]; Protocol Last Admin: 10/16/18 12:19 Dose: 4 unit Losartan Potassium (Cozaar) 100 mg PO DAILY [facility] Last Admin: 10/16/18 09:52 Dose: 100 mg Miscellaneous Information [place] [place]dered Lab Info) 0 each OTHER ONCE ONE Stop: 10/17/18 19:46 Ondansetron HCl (Zofran Inj) 4 mg IV.PUSH Q6H PRN PRN Reason: NAUSEA OR VOMITING Pravastatin Sodium (Pravachol) 40 mg PO QPM [facility] Last Admin: 10/15/18 17:29 Dose: 40 mg Senna/Docusate Sodium (Clara-Colace) 1 tab PO BID [facility] Last Admin: 10/16/18 09:51 Dose: Not Given Sodium Chloride (Ns Flush) 2 ml IV.FLUSH BID [facility] Last Admin: 10/16/18 09:52 Dose: 2 ml Sodium Chloride (Ns Flush) 2 ml IV.FLUSH PRN PRN PRN Reason: FLUSH AFTER USING IV ACCESS Warfarin Sodium (Coumadin) 4.5 mg PO DAILY@1600 [facility] Last Admin: 10/15/18 16:22 Dose: 4.5 mg Allergies Allergy/AdvReac Type Severity Reaction Status Date / Time amitriptyline Allergy Severe Bleeding Verified 10/14/18 18:15 codeine Allergy Mild NAUSEA Verified 10/14/18 18:15 VOMITING gabapentin Allergy Unknown TOO MUCH Verified 10/14/18 18:15 CONFUSION hydromorphone AdvReac Severe Hallucinati Unverified 05/30/17 17:51 ons;Confusi on *MDRO Multi-Drug Resistant Allergy Unknown Congestion Uncoded 10/14/18 18:15 Organism Home Medications Medication Instructions Recorded Confirmed Type clopidogrel [Plavix] 75 mg PO DAILY 10/14/18 10/14/18 History duloxetine 20 mg PO DAILY 10/14/18 10/14/18 History furosemide 40 mg PO DAILY 10/14/18 10/14/18 History gabapentin 600 mg PO TID 10/14/18 10/14/18 History insulin regular human [Novolin R 1 sliding scale dose SUBCUT UD 10/14/18 History Regular U-100 Insuln] losartan 100 mg PO DAILY 10/14/18 10/14/18 History simvastatin 20 mg PO QPM 10/14/18 10/14/18 History warfarin 4.5 mg PO DAILY 10/14/18 10/14/18 History Results - Labs CBC & Chem 7: 10/16/18 10:24 10/16/18 10:24 Laboratory Results - last 24 hr 10/15/18 10/16/18 10/16/18 17:22 00:11 05:12 WBC RBC Hgb Hct MCV MCH MCHC RDW Plt Count MPV Neut % (Auto) Lymph % (Auto) Page % (Auto) Eos % (Auto) Baso % (Auto) Neut # (Auto) Lymph # (Auto) Page # (Auto) Eos # (Auto) Baso # (Auto) WBC Differential Differential Comment PT INR Sodium Potassium Chloride Carbon Dioxide Anion Gap BUN Creatinine Estimated GFR POC Glucose 197 H 293 H 206 H Random Glucose Calcium Total Bilirubin AST ALT Alkaline Phosphatase Total Protein Albumin 10/16/18 10/16/18 10/16/18 10:24 10:24 10:24 WBC 6.0 RBC 3.86 L Hgb 11.2 L Hct 34.3 L MCV 88.9 MCH 29.0 MCHC 32.6 RDW 19.5 H Plt Count 219 MPV 9.0 Neut % (Auto) 73.7 H Lymph % (Auto) 10.3 Page % (Auto) 13.6 H Eos % (Auto) 2.0 Baso % (Auto) 0.4 Neut # (Auto) 4.4 Lymph # (Auto) 0.6 L [place] # (Auto) 0.8 Eos # (Auto) 0.1 Baso # (Auto) 0.0 WBC Differential . Differential Comment Auto diff final PT 16.6 H INR 1.6 Sodium 138 Potassium 3.9 Chloride 103 Carbon Dioxide 28.8 Anion Gap 6 BUN 26 H Creatinine 1.16 Estimated GFR 61 L POC Glucose Random Glucose 137 H Calcium 8.5 Total Bilirubin 0.9 AST 14 L ALT 14 Alkaline Phosphatase 135 H Total Protein 7.3 Albumin 2.4 L 10/16/18 11:33 WBC RBC Hgb Hct MCV MCH MCHC RDW Plt Count MPV Neut % (Auto) Lymph % (Auto) [place] % (Auto) Eos % (Auto) Baso % (Auto) Neut # (Auto) Lymph # (Auto) [place] # (Auto) Eos # (Auto) Baso # (Auto) WBC Differential Differential Comment PT INR Sodium Potassium Chloride Carbon Dioxide Anion Gap BUN Creatinine Estimated GFR POC Glucose 238 H Random Glucose Calcium Total Bilirubin AST ALT Alkaline Phosphatase Total Protein Albumin Microbiology 10/14/18 18:45 Blood - Peripheral Aerobic Blood Culture - Preliminary No growth in 2 days 10/14/18 18:45 Blood - Peripheral Anaerobic Blood Culture - Preliminary No growth in 2 days 10/14/18 18:40 Blood - Peripheral Aerobic Blood Culture - Preliminary No growth in 2 days 10/14/18 18:40 Blood - Peripheral Anaerobic Blood Culture - Preliminary No growth in 2 days - Imaging Impressions Aorta w/Runoff CTA 10/15/18 00:00 CONCLUSION: 1. 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 2. Moderate to severe stenosis of the proximal renal arteries bilaterally, more prominent on the left. 3. Bulky calcified plaque in the common iliac arteries bilaterally with moderate focal stenosis distally on the right and long segment mild to moderate stenosis on the left. 4. Right is effaced nearly entirely stented with diffuse long segment moderate stenosis of the distal right SFA stent. 5. Multiple stents in the left SFA with intervening [place] SFA moderate severe stenoses as well as critical stenosis/occlusion of the proximal distal stent. 6. Heavily calcified popliteal arteries bilaterally with diffusely calcified runoff vessels significantly limiting evaluation for patency. Two-vessel runoff to the feet. 7. Trace bilateral pleural effusions. 8. Additional ancillary findings, as above. Foot X-Ray 10/15/18 00:00 CONCLUSION: 1. Status post transmetatarsal amputation. 2. Diffuse soft tissue prominence about the amputation stump with subtle cortical irregularity involving the fifth metatarsal. Cannot exclude early osteomyelitis in the appropriate clinical setting. Assessment and Plan - Assessment (1) Right foot ulcer Code(s): L97.519 - Non-pressure chronic ulcer of other part of right foot with unspecified severity Status: Acute (2) Cellulitis of left lower extremity Code(s): L03.116 - Cellulitis of left lower limb Status: Acute (3) Peripheral vascular disease of lower extremity Code(s): I73.9 - Peripheral vascular disease, unspecified Status: Acute - Plan Right foot ulcer may correlate with early osteomyelitis as seen on x-ray. Infectious disease consultation is indicated. The left foot cellulitis is struggling due to peripheral vascular disease. Ordered right foot wound culture. Awaiting vascular recommendations regarding bilateral extremities. The patient may need debridement and bone biopsy on the right. Will follow tomorrow continue antibiotics discussed at length plan with and patient
[2018-10-16] MEDS: Vancomycin Inj 1,500 MG in Sodium Chlor 0.9% Inj 500 ML IV.SIG SCH (21:02)
[2018-10-17] MEDS: Insulin NovoLOG Aspart Correctional Sugar Inj SQ SCH ×5 (00:54→21:26)
[2018-10-17 07:28] LABS: Baso % (Auto) 0.8 % (0.0-2.0); Eos # (Auto) 0.1 th/mm3 (0.0-0.4); Hematocrit 33.1 % (39.0-51.0); Hemoglobin 10.9 gm/dL (13.0-17.0); Lymph # (Auto) 0.7 th/mm3 (1.0-4.8); Mean Corpuscular Hemoglobin 29.2 pg (27.0-34.0); Mean Corpuscular Volume 88.5 fL (80.0-100.0); Mean Platelet Volume 8.6 fL (7.0-11.0); Mono # (Auto) 0.9 th/mm3 (0.0-0.9); Mono % (Auto) 14.6 % (0.0-8.0); Neut # (Auto) 4.2 th/mm3 (1.8-7.7); Neut % (Auto) 70.6 % (16.0-70.0); Platelet Count 197 th/mm3 (150-450); Red Blood Count 3.74 mil/mm3 (4.50-5.90); Red Cell Distribution Width 18.8 % (11.6-17.2); White Blood Count 5.9 th/mm3 (4.0-11.0)
[2018-10-17 07:37] LABS: INR 2.1 Ratio; Prothrombin Time 20.8 sec (9.8-11.6)
[2018-10-17 07:56] LABS: Calcium 8.1 mg/dL (8.5-10.1); Carbon Dioxide 28.9 meq/L (21.0-32.0); Potassium 3.8 meq/L (3.5-5.1)
--- NOTE | 2018-10-17 08:19 | P.CONVS ---
History of Present Illness Service: vascular surgery Consult date: 10/17/18 Primary Care Provider: UNKNOWN Chief Complaint: 2 days of increasing swelling redness and oozing left foot and lower leg History of Present Illness: 78-year-old male with a past medical history of chronic venous insufficiency and peripheral vascular disease status post endovascular revascularization of the bilateral lower extremities. Presents with left foot cellulitis and rest pain. He denies any chest pain or shortness of breath. Review of Systems All other systems reviewed negative except as stated in HPI [facility] - History History Provided By: Patient - Medical History Medical History: Medical History (Last Reviewed 10/14/18 @ 21:05 by Isaac Quiroz MD) CHF (congestive heart failure) Depression Diabetes HTN (hypertension) Hypercholesteremia Neuropathy - Tobacco History Second Hand Smoke Exposure: No Smoking Status: Never smoker - Alcohol History How Often Do You Have a Drink Containing Alcohol: Never - Substance Use History Substance History: No History of Abuse - Travel History Recent Travel in the [facility] Within the Last 8 Weeks: No Recent Travel Out of the Country Within the Last 8 Weeks: No - Immunization History Tetanus Immunization: Unsure Hx Influenza Vaccine This Season: Yes Medications and Allergies Active Medications: Active Medications Acetaminophen (Tylenol) 650 mg PO Q4H PRN PRN Reason: Temp > 100.4 Clonidine HCl (Catapres) 0.1 mg PO Q6H PRN PRN Reason: SBP>160, DBP>90 Last Admin: 10/15/18 16:22 Dose: 0.1 mg Clopidogrel Bisulfate (Plavix) 75 mg PO DAILY [facility] Last Admin: 10/16/18 09:51 Dose: 75 mg Collagenase (Santyl Oint) 1 applicatio TOPICAL DAILY [facility] Last Admin: 10/16/18 15:30 Dose: 1 applicatio Dextrose (D50w Vial) 50 ml IV.PUSH UNSCH PRN PRN Reason: PER HYPOGLYCEMIA PROTOCOL Duloxetine HCl (Cymbalta) 20 mg PO DAILY [facility] Last Admin: 10/16/18 09:51 Dose: 20 mg Enalaprilat (Vasotec Inj) 1.25 mg IV.PUSH Q6H PRN PRN Reason: SBP>160, DBP>90 Furosemide (Lasix) 40 mg PO DAILY [facility] Last Admin: 10/16/18 09:52 Dose: 40 mg Gabapentin (Neurontin) 600 mg PO TID [facility] Last Admin: 10/16/18 17:19 Dose: 600 mg Glucagon (Glucagon Inj) 1 mg OTHER PRN PRN PRN Reason: for Hypoglycemia Protocol Pharmacy Profile Note (Vancomycin Consult Pharmacy) 0 mls @ 0 mls/hr OTHER UNSCH [facility] Vancomycin HCl 1,500 mg/ (Sodium Chloride) 515 mls @ 250 mls/hr IV.SIG Q24H [facility] Last Infusion: 10/16/18 23:06 Dose: Infused Insulin Aspart (Novolog Insulin Correctional Sugar Inj) 0 unit SQ Q6HR [facility]; Protocol Last Admin: 10/17/18 07:07 Dose: 2 unit Losartan Potassium (Cozaar) 100 mg PO DAILY [facility] Last Admin: 10/16/18 09:52 Dose: 100 mg Miscellaneous Information ([facility] Ordered Lab Info) 0 each OTHER ONCE ONE Stop: 10/17/18 19:46 Ondansetron HCl (Zofran Inj) 4 mg IV.PUSH Q6H PRN PRN Reason: NAUSEA OR VOMITING Pravastatin Sodium (Pravachol) 40 mg PO QPM [facility] Last Admin: 10/16/18 17:19 Dose: 40 mg Senna/Docusate Sodium (Clara-Colace) 1 tab PO BID [facility] Last Admin: 10/16/18 21:02 Dose: Not Given Sodium Chloride (Ns Flush) 2 ml IV.FLUSH BID [facility] Last Admin: 10/16/18 21:02 Dose: 2 ml Sodium Chloride (Ns Flush) 2 ml IV.FLUSH PRN PRN PRN Reason: FLUSH AFTER USING IV ACCESS Tramadol HCl (Ultram) 50 mg PO Q8H PRN PRN Reason: PAIN 1-10 Warfarin Sodium (Coumadin) 4.5 mg PO DAILY@1600 [facility] Last Admin: 10/16/18 15:30 Dose: 4.5 mg Allergies Allergy/AdvReac Type Severity Reaction Status Date / Time amitriptyline Allergy Severe Bleeding Verified 10/14/18 18:15 codeine Allergy Mild NAUSEA Verified 10/14/18 18:15 VOMITING gabapentin Allergy Unknown TOO MUCH Verified 10/14/18 18:15 CONFUSION hydromorphone AdvReac Severe Hallucinati Unverified 05/30/17 17:51 ons;Confusi on *MDRO Multi-Drug Resistant Allergy Unknown Congestion Uncoded 10/14/18 18:15 Organism Home Medications Medication Instructions Recorded Confirmed Type clopidogrel [Plavix] 75 mg PO DAILY 10/14/18 10/14/18 History duloxetine 20 mg PO DAILY 10/14/18 10/14/18 History furosemide 40 mg PO DAILY 10/14/18 10/14/18 History gabapentin 600 mg PO TID 10/14/18 10/14/18 History insulin regular human [Novolin R 1 sliding scale dose SUBCUT UD 10/14/18 History Regular U-100 Insuln] losartan 100 mg PO DAILY 10/14/18 10/14/18 History simvastatin 20 mg PO QPM 10/14/18 10/14/18 History warfarin 4.5 mg PO DAILY 10/14/18 10/14/18 History Physical Exam Vital Signs / I&O: Vital Signs 10/16/18 12:00 10/16/18 16:00 10/16/18 20:00 Temperature 97.2 F L 97.3 F L 97.7 F Pulse Rate 71 89 82 Respiratory Rate 13 14 16 Blood Pressure 128/61 126/57 L 140/70 Pulse Oximetry 93 L 95 95 10/17/18 00:00 10/17/18 04:00 Temperature 98.4 F 98.5 F Pulse Rate 89 88 Respiratory Rate 16 16 Blood Pressure 168/79 H 113/61 Pulse Oximetry 93 L 93 L Intake & Output 10/16/18 10/17/18 10/17/18 18:59 06:59 18:59 Intake Total 480 / 480 515 / 515 Output Total 800 / 800 Balance -320 / -320 515 / 515 Weight 85.8 kg Intake: IV 515 / 515 Vancomycin Inj 1,500 MG In NS 515 / 515 Inj 500 ML @ 250 mls/hr IV.SIG Q24H [facility] Rx#:[id number] Oral 480 / 480 Output: Urine 800 / 800 Other: # Voids 1 # Incontinent Voids 2 Date of Last Bowel Movement 10/13/18 10/13/18 Neuro: Alert awake oriented x3 HEENT: Normocephalic atraumatic Neck: Supple Heart: S1-S2 Lungs: Clear to auscultation bilateral Abdomen: Soft nontender nondistended Vascular: Monophasic posterior tibial signal bilaterally. Ischemic changes involving the left first, second, and third digits. Right foot with healed TMA. There is a 2 x 2 cm chronic ulceration. Laboratory Results - last 24 hr 10/16/18 10/16/18 10/16/18 10:24 10:24 10:24 WBC 6.0 RBC 3.86 L Hgb 11.2 L Hct 34.3 L MCV 88.9 MCH 29.0 MCHC 32.6 RDW 19.5 H Plt Count 219 MPV 9.0 Neut % (Auto) 73.7 H Lymph % (Auto) 10.3 [place] % (Auto) 13.6 H Eos % (Auto) 2.0 Baso % (Auto) 0.4 Neut # (Auto) 4.4 Lymph # (Auto) 0.6 L [place] # (Auto) 0.8 Eos # (Auto) 0.1 Baso # (Auto) 0.0 WBC Differential . Differential Comment Auto diff final PT 16.6 H INR 1.6 Sodium 138 Potassium 3.9 Chloride 103 Carbon Dioxide 28.8 Anion Gap 6 BUN 26 H Creatinine 1.16 Estimated GFR 61 L POC Glucose Random Glucose 137 H Calcium 8.5 Total Bilirubin 0.9 AST 14 L ALT 14 Alkaline Phosphatase 135 H Total Protein 7.3 Albumin 2.4 L 10/16/18 10/16/18 10/17/18 11:33 17:03 00:40 WBC RBC Hgb Hct MCV MCH MCHC RDW Plt Count MPV Neut % (Auto) Lymph % (Auto) [place] % (Auto) Eos % (Auto) Baso % (Auto) Neut # (Auto) Lymph # (Auto) [place] # (Auto) Eos # (Auto) Baso # (Auto) WBC Differential Differential Comment PT INR Sodium Potassium Chloride Carbon Dioxide Anion Gap BUN Creatinine Estimated GFR POC Glucose 238 H 212 H 250 H Random Glucose Calcium Total Bilirubin AST ALT Alkaline Phosphatase Total Protein Albumin 10/17/18 10/17/18 10/17/18 07:02 07:15 07:15 WBC 5.9 RBC 3.74 L Hgb 10.9 L Hct 33.1 L MCV 88.5 MCH 29.2 MCHC 33.0 RDW 18.8 H Plt Count 197 MPV 8.6 Neut % (Auto) 70.6 H Lymph % (Auto) 12.0 [place] % (Auto) 14.6 H Eos % (Auto) 2.0 Baso % (Auto) 0.8 Neut # (Auto) 4.2 Lymph # (Auto) 0.7 L [place] # (Auto) 0.9 Eos # (Auto) 0.1 Baso # (Auto) 0.0 WBC Differential . Differential Comment Auto diff final PT 20.8 H INR 2.1 Sodium Potassium Chloride Carbon Dioxide Anion Gap BUN Creatinine Estimated GFR POC Glucose 182 H Random Glucose Calcium Total Bilirubin AST ALT Alkaline Phosphatase Total Protein Albumin 10/17/18 07:15 WBC RBC Hgb Hct MCV MCH MCHC RDW Plt Count MPV Neut % (Auto) Lymph % (Auto) [place] % (Auto) Eos % (Auto) Baso % (Auto) Neut # (Auto) Lymph # (Auto) [place] # (Auto) Eos # (Auto) Baso # (Auto) WBC Differential Differential Comment PT INR Sodium 135 L Potassium 3.8 Chloride 99 Carbon Dioxide 28.9 Anion Gap 7 BUN 36 H Creatinine 1.36 H Estimated GFR 51 L POC Glucose Random Glucose 166 H Calcium 8.1 L Total Bilirubin AST ALT Alkaline Phosphatase Total Protein Albumin Microbiology 10/14/18 18:45 Aerobic Blood Culture - Preliminary Blood - Peripheral No growth in 2 days Anaerobic Blood Culture - Preliminary No growth in 2 days 10/14/18 18:40 Aerobic Blood Culture - Preliminary Blood - Peripheral No growth in 2 days Anaerobic Blood Culture - Preliminary No growth in 2 days Impressions Aorta w/Runoff CTA 10/15/18 00:00 CONCLUSION: 1. 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 2. Moderate to severe stenosis of the proximal renal arteries bilaterally, more prominent on the left. 3. Bulky calcified plaque in the common iliac arteries bilaterally with moderate focal stenosis distally on the right and long segment mild to moderate stenosis on the left. 4. Right is effaced nearly entirely stented with diffuse long segment moderate stenosis of the distal right SFA stent. 5. Multiple stents in the left SFA with intervening [place] SFA moderate severe stenoses as well as critical stenosis/occlusion of the proximal distal stent. 6. Heavily calcified popliteal arteries bilaterally with diffusely calcified runoff vessels significantly limiting evaluation for patency. Two-vessel runoff to the feet. 7. Trace bilateral pleural effusions. 8. Additional ancillary findings, as above. Foot X-Ray 10/15/18 00:00 CONCLUSION: 1. Status post transmetatarsal amputation. 2. Diffuse soft tissue prominence about the amputation stump with subtle cortical irregularity involving the fifth metatarsal. Cannot exclude early osteomyelitis in the appropriate clinical setting. Assessment and Plan - Assessment (1) Chronic venous insufficiency Code(s): I87.2 - Venous insufficiency (chronic) (peripheral) Status: Acute (2) Peripheral vascular disease of lower extremity Code(s): I73.9 - Peripheral vascular disease, unspecified Status: Acute - Plan The patient clinical presentation with a combined etiology of critical limb ischemia with tissue loss and chronic venous insufficiency. CT angiography reviewed: There is significant occlusive disease bilaterally worse on the left than the right. I will obtain an CATHI. I will schedule the patient for diagnostic angiography of the bilateral lower extremity today with possible intervention of the LLE. I will plan to revascularize the right lower extremity based on the CATHI and the angiogram findings in the next 1-2 days. Risk benefits and alternatives were explained to the patient and he agrees to the procedure. Thank you for allowing to participate in this patient care. If you have any questions please do not hesitate to call my cell phone Nestor Diaz MD [facility] [phone]
[2018-10-17] MEDS: Gabapentin 300 MG Capsule PO SCH ×3 (10:04→18:10)
[2018-10-17] MEDS: Furosemide 40 MG Tablet PO SCH (10:04)
[2018-10-17] MEDS: Senna/Docusate Sodium 8.6/50 MG Tablet PO SCH ×2 (10:04→21:26)
[2018-10-17] MEDS: Collagenase Oint 30 GM Tube TOPICAL SCH (10:05)
--- NOTE | 2018-10-17 10:20 | ECHRPT ---
EXAM DATE: 10/17/2018 10:11 AM EST AGE/SEX: 78 years / Male INDICATIONS: peripheral vascular disease CLINICAL DATA: This is the patient's initial encounter. Patient reports that signs and symptoms have been present for 4 - 6 months and indicates a pain score of 1/10. MEDICAL/SURGICAL HISTORY: . congestive heart failure, depression, diabetes, hypertension, neuro ernestine, hypercholesterolemia . right foot transmetatarsal sx [place] [facility] [place] W 3D[place] 10/15/2018. . TECHNIQUE: Four-cuff ankle and brachial pressures were obtained. Pulse cuff waveform tracings of the ankles were recorded, and ankle-brachial indices were calculated. PRESSURES (mmHg): Brachial (arm) : RIGHT: 122, LEFT: IV Ankle : RIGHT: 115, LEFT: 94 CATHI : RIGHT: 0.94, LEFT: 0.77 TBI : RIGHT: N/A, LEFT: 0.00 FINDINGS: Pulsed-Cuff Waveform: There are good upstroke and a dicrotic downstroke of the tracings. Other: None. CONCLUSION: 1. CATHI on the right 0.94 2. CATHI on the left 0.77. 3. Significant peripheral disease by CTA 10/15/2018 Electronically signed by: Curry Smith MD Board Certified Radiologist 10/17/2018 10:19 AM EST
--- NOTE | 2018-10-17 11:54 | P.PNIM ---
Addendum entered and electronically signed by ATIF Correia 15:13: Consult placed to ID regarding ? early osteomyelitis and cellutlitis Original Note: Subjective Interval history: Patient offers no new complaints at this time Planning for intervention with vascular surgery tomorrow Physical Exam Vital signs: Last Vital Signs Temp 98 F 10/17/18 08:00 Pulse 88 10/17/18 08:00 Resp 18 10/17/18 08:00 BP 117/58 L 10/17/18 08:00 Pulse Ox 94 L 10/17/18 08:00 Narrative: General: NAD, AAOx3 Chest: CTA Cardiac: Regular Abd: +BS, soft ND/NT Ext: Right foot with previous amputation of all toes, chronic wound on the right lateral foot without any drainage or erythema. Left LE with previous 5th digit amputation, erythema of the foot and calf with chronic venous stasis skin changes, less swelling today Results Labs CBC & Chem 7: 10/19/18 06:34 10/19/18 06:34 Assessment and Plan Assessment (1) Chronic venous insufficiency: Code(s): I87.2 - Venous insufficiency (chronic) (peripheral) Status: Acute (2) Peripheral vascular disease of lower extremity: Code(s): I73.9 - Peripheral vascular disease, unspecified Status: Acute Plan Cellulitis on left foot Chronic wound on right foot PAD with hx of LE vascular stenting - Pt is a 78 y/o male with diabetes mellitus, atrial fibrillation, CAD, CKD, stage III, PAD, HTN, and CHF/cardiomyopathy with EF 20-25% and has a pacemaker. - Pt presented to the ED on 10/14/18 with complaints of pain and swelling to his left lower extremity. 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 Yesterday his noticed his left foot becoming increasingly more red and it started to ooze. 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 Pt has right toe chronic wound and has been followed by [facility] - Pt was admitted with severe cellulitis and started on Vancomycin - Vancomycin with pharmacy dosing - Appreciate Podiatry consult - No surgical intervention is planned at this time for the chronic right foot wound. - Xray of the left foot (10/14/18): - Amputation fifth toe and metatarsal as above. No bony destructive changes. No acute fracture - Pt continued on his Plavix - Aorta w/Runoff CTA (10/15/18) 1. 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 2. Moderate to severe stenosis of the proximal renal arteries bilaterally, more prominent on the left. 3. Bulky calcified plaque in the common iliac arteries bilaterally with moderate focal stenosis distally on the right and long segment mild to moderate stenosis on the left. 4. Right is effaced nearly entirely stented with diffuse long segment moderate stenosis of the distal right SFA stent. 5. Multiple stents in the left SFA with intervening belkofski SFA moderate severe stenoses as well as critical stenosis/occlusion of the proximal distal stent. 6. Heavily calcified popliteal arteries bilaterally with diffusely calcified runoff vessels significantly limiting evaluation for patency. Two-vessel runoff to the feet. 7. Trace bilateral pleural effusions. 8. Additional ancillary findings, as documented in the radiology report - Consult to Vascular surgery, appreciate input. Per Vascular surgery: The patient clinical presentation with a combined etiology of critical limb ischemia with tissue loss and chronic venous insufficiency. CT angiography reviewed: There is significant occlusive disease bilaterally worse on the left than the right. CATHI 10/17/18: 1. CATHI on the right 0.942. CATHI on the left 0.77.3. Significant peripheral disease by CTA 10/15/2018 scheduled for diagnostic angiography of the bilateral lower extremity tomorrow with possible intervention of the LLE. Plan to revascularize the right lower extremity based on the CATHI and the angiogram findings in the next 1-2 days. - vascular surgery unable to done intervention today due to elevaqted INR. INR today 2.1. Coumadin placed in hold - vit K 5 mg PO x 1 today - recheck INR in AM CHF/Cardiomyopathy with EF 20-25% - Outpt 2D echo (09/27/18): - Mild LVH, estimated EF 20-25% - LA is moderately dilated. RA is mildly dilated - Mildly thickened mitral valve leaflets. Calcifications of both mitral valve leaflets with mild mitral regurg - Aortic valve sclerosis, trace aortic valve regurgitation - Mild to moderate tricuspid valve regurg - Estimated PA pressure 52.6mmHg - Pt continued on Lasix 40mg daily, losartan 100mg daily A. fib - Pt is on Coumadin 5mg [place], 2.5 Mo- - INR 1.9 (10/15/18) --> 1.6 (10/16/18) --> 2.1 (10/17/18) - vit K 5 mg PO x 1 today - Repeat INR in AM CKD, stage III - Labs are stable, Cr typically around 0.8 per outpt records Diabetes mellitus - Pt is on Novolin R 30 units daily at home - Pt is currently on NovoLog SSI - Accu checks Attending Attestation The exam, history, and the medical decision-making described in the above note were completed with the assistance of the mid-level provider. I reviewed and agree with the findings presented. I attest that I had a dvra-be-pfae encounter with the patient on the same day, and personally performed and documented my assessment and findings in the medical record. Patient examined. Assessment and plan formulated with Amanda Cassidy PA-C. I agree with the above. Progress Note: Quality VTE Deep Vein Thrombosis/Pulmonary Embolism Present on Admission: No
[2018-10-17] MEDS ORDERED: Phytonadione 5 MG/SWFI 5 ML Oral Syringe PO ONE (15:00)
--- NOTE | 2018-10-17 16:14 | XR ---
EXAM DATE: 10/17/2018 4:11 PM EST AGE/SEX: 78 years / Male INDICATIONS: Short of breath. CLINICAL DATA: This is the patient's initial encounter. Patient reports that signs and symptoms have been present for 4 - 6 days and indicates a pain score of 0/10. MEDICAL/SURGICAL HISTORY: Congestive heart failure. Pacemaker. CABG. COMPARISON: No prior exams available for comparison. FINDINGS: A single AP view of the chest demonstrates cardiomegaly and previous median sternotomy. Slight pulmon amanda vascular congestion. No pulmonary edema or pleural effusion. Left-sided pacemaker unchanged. The cardiomediastinal contours are unremarkable. Osseous structures are intact. CONCLUSION: Cardiomegaly and central pulmonary vascular congestion. Electronically signed by: Carlyle Ocasio MD Board Certified Radiologist 10/17/2018 4:13 PM EST
[2018-10-17 16:27] LABS: ABG Base Excess 3.4 mmol/L (-2-2); ABG PCO2 44 mmHg (38-42); ABG PO2 56 mmHg (61-120)
--- NOTE | 2018-10-17 16:37 | P.CONID ---
History of Present Illness Service: Infectious disease Consult date: 10/17/18 Requesting Physician: Stalin Zamarripa Reason for Consult: evaluate patient with ?early osteo R 5th MT Primary Care Provider: UNKNOWN Chief Complaint: 2 days of increasing swelling redness and oozing left foot and lower leg History of Present Illness: Patient seen and examined. Records reviewed. Patient is a 78-year-old male, with known history of peripheral vascular disease , has had previous revascularization procedure, presented to the hospital complaining of pain swelling and redness on his left lower extremity. Patient at one time has had problem with ulcers in both lower extremity. He currently does not have any ulcer in the left lower extremity. He does have an ulcer on the right foot which apparently has been present for years. He has had transmetatarsal amputation on that right foot. Currently he has had an ulcer on the lateral aspect of that right foot which according to the had almost healed at one point, but he opened up again. He has been going to a shop steward , and has been having some local debridement of the wound. The wound according to the is a little bit smaller than previously. He has had some oral antibiotics. According to the patient and the he had been seen at one point by an infectious disease specialist as well as in the wound care center, and has received IV antibiotics. He has not been having any big problem with that ulcer, and he has been going to the wound care center here at [place]. There is been no redness on the right foot or any foul-smelling drainage. He apparently received a course of oral antibiotics probably in the last 2 weeks. On this current admission his main problem is his left lower extremity. He has been diagnosed to have cellulitis, and vascular workup is in progress. He denies any fever chills or sweats. He has not had any recent sore throat or chest congestion. Patient has been getting IV vancomycin, and they have noted improvement in his redness. He has had x-rays of both feet. The x-ray on the right foot is showing some possible cortical irregularity on the fifth metatarsal. Infectious disease consultation has therefore been requested to evaluate that right foot. Surgical History: Previous revascularization procedures TMA R foot, and multiple amputations done Amputation ray 5th L foot Review of Systems Constitutional: Denies chills, Denies fever(s), Denies night sweats Eyes: Denies discharge, Denies dry eyes Ears, Nose, Mouth, and Throat: Denies difficulty swallowing, Denies nasal congestion, Denies nasal discharge, Denies sore throat Cardiovascular: Denies chest pain, Denies shortness of breath Respiratory: Denies chest congestion, Denies cough, Denies shortness of breath Gastrointestinal: Denies abdominal pain, Denies loose stools, Denies nausea, Denies pain with swallowing, Denies vomiting Genitourinary: Denies painful urination Musculoskeletal: Denies joint swelling Skin/Breast: Reports sores, Reports wounds PMFSH - History History Provided By: Patient - Medical History Medical History: Medical History (Last Reviewed 10/17/18 @ 16:28 by May Marks MD) CHF (congestive heart failure) Depression Diabetes HTN (hypertension) Hypercholesteremia Neuropathy - Tobacco History Second Hand Smoke Exposure: No Smoking Status: Never smoker - Alcohol History How Often Do You Have a Drink Containing Alcohol: Never - Substance Use History Substance History: No History of Abuse - Travel History Recent Travel in the [facility] Within the Last 8 Weeks: No Recent Travel Out of the Country Within the Last 8 Weeks: No - Immunization History Tetanus Immunization: Unsure Hx Influenza Vaccine This Season: Yes Medications and Allergies Active Medications: Active Medications Acetaminophen (Tylenol) 650 mg PO Q4H PRN PRN Reason: Temp > 100.4 Clonidine HCl (Catapres) 0.1 mg PO Q6H PRN PRN Reason: SBP>160, DBP>90 Last Admin: 10/15/18 16:22 Dose: 0.1 mg Clopidogrel Bisulfate (Plavix) 75 mg PO DAILY [facility] Last Admin: 10/17/18 10:04 Dose: 75 mg Collagenase (Santyl Oint) 1 applicatio TOPICAL DAILY [facility] Last Admin: 10/17/18 10:05 Dose: 1 applicatio Dextrose (D50w Vial) 50 ml IV.PUSH UNSCH PRN PRN Reason: PER HYPOGLYCEMIA PROTOCOL Duloxetine HCl (Cymbalta) 20 mg PO DAILY [facility] Last Admin: 10/17/18 10:04 Dose: 20 mg Enalaprilat (Vasotec Inj) 1.25 mg IV.PUSH Q6H PRN PRN Reason: SBP>160, DBP>90 Furosemide (Lasix) 40 mg PO DAILY [facility] Last Admin: 01/02/19 10:04 Dose: 40 mg Gabapentin (Neurontin) 600 mg PO TID [facility] Last Admin: 10/17/18 13:25 Dose: 600 mg Glucagon (Glucagon Inj) 1 mg OTHER PRN PRN PRN Reason: for Hypoglycemia Protocol Pharmacy Profile Note (Vancomycin Consult Pharmacy) 0 mls @ 0 mls/hr OTHER UNSCH [facility] Vancomycin HCl 1,500 mg/ (Sodium Chloride) 515 mls @ 250 mls/hr IV.SIG Q24H [facility] Last Infusion: 10/16/18 23:06 Dose: Infused Insulin Aspart (Novolog Insulin [facility] Sugar Inj) 0 unit SQ [facility]; Protocol Losartan Potassium (Cozaar) 100 mg PO DAILY [facility] Last Admin: 10/17/18 10:04 Dose: 100 mg Miscellaneous Information ([facility] Ordered Lab Info) 0 each OTHER ONCE ONE Stop: 10/17/18 19:46 Ondansetron HCl (Zofran Inj) 4 mg IV.PUSH Q6H PRN PRN Reason: NAUSEA OR VOMITING Pravastatin Sodium (Pravachol) 40 mg PO QPM [facility] Last Admin: 10/16/18 17:19 Dose: 40 mg Senna/Docusate Sodium (Clara-Colace) 1 tab PO BID [facility] Last Admin: 10/17/18 10:04 Dose: Not Given Sodium Chloride (Ns Flush) 2 ml IV.FLUSH BID [facility] Last Admin: 10/17/18 10:04 Dose: 2 ml Sodium Chloride (Ns Flush) 2 ml IV.FLUSH PRN PRN PRN Reason: FLUSH AFTER USING IV ACCESS Tramadol HCl (Ultram) 50 mg PO Q8H PRN PRN Reason: PAIN 1-10 Warfarin Sodium (Coumadin) 4.5 mg PO DAILY@1600 [facility] Last Admin: 10/16/18 15:30 Dose: 4.5 mg Allergies Allergy/AdvReac Type Severity Reaction Status Date / Time amitriptyline Allergy Severe Bleeding Verified 10/14/18 18:15 codeine Allergy Mild NAUSEA Verified 10/14/18 18:15 VOMITING gabapentin Allergy Unknown TOO MUCH Verified 10/14/18 18:15 CONFUSION hydromorphone AdvReac Severe Hallucinati Unverified 05/30/17 17:51 ons;Confusi on *MDRO Multi-Drug Resistant Allergy Unknown Congestion Uncoded 10/14/18 18:15 Organism Home Medications Medication Instructions Recorded Confirmed Type clopidogrel [Plavix] 75 mg PO DAILY 10/14/18 10/14/18 History duloxetine 20 mg PO DAILY 10/14/18 10/14/18 History furosemide 40 mg PO DAILY 10/14/18 10/14/18 History gabapentin 600 mg PO TID 10/14/18 10/14/18 History insulin regular human [Novolin R 1 sliding scale dose SUBCUT UD 10/14/18 History Regular U-100 Insuln] losartan 100 mg PO DAILY 10/14/18 10/14/18 History simvastatin 20 mg PO QPM 10/14/18 10/14/18 History warfarin 4.5 mg PO DAILY 10/14/18 10/14/18 History Exam Vital signs: Vital Signs 10/16/18 20:00 10/17/18 00:00 10/17/18 04:00 Temperature 97.7 F 98.4 F 98.5 F Pulse Rate 82 89 88 Respiratory Rate 16 16 16 Blood Pressure 140/70 168/79 H 113/61 Pulse Oximetry 95 93 L 93 L 10/17/18 08:00 10/17/18 12:00 Temperature 98 F 98.1 F Pulse Rate 88 88 Respiratory Rate 18 16 Blood Pressure 117/58 L 132/69 Pulse Oximetry 94 L Intake & Output 10/16/18 10/17/18 10/17/18 18:59 06:59 18:59 Intake Total 480 / 480 515 / 515 Output Total 800 / 800 Balance -320 / -320 515 / 515 Weight 85.8 kg Intake: IV 515 / 515 Vancomycin Inj 1,500 MG In NS 515 / 515 Inj 500 ML @ 250 mls/hr IV.SIG Q24H [facility] Rx#:[id number] Oral 480 / 480 Output: Urine 800 / 800 Other: # Voids 1 # Incontinent Voids 2 Date of Last Bowel Movement 10/13/18 10/13/18 Narrative: Physical examination GENERAL: Patient is a well-nourished, well-developed male, awake and alert, not in respiratory distress. SKIN: Cool and dry. No generalized rash, no ecchymoses and no evidence of embolic lesions. HEAD: Atraumatic. Normocephalic. No temporal wasting, or tenderness. EYES: [place] conjunctiva. No petechia or hemorrhage. Pupils equal, round and reactive to light. Extraocular movements full and intact. No scleral icterus. No injection or drainage. EARS, NOSE AND THROAT: Nose without bleeding or purulent nasal discharge. Mucous membranes pink and moist. No oral lesions noted. No exudate. NECK: Trachea midline. Supple and not tender, no meningeal signs CARDIOVASCULAR: Regular rate and rhythm. No murmurs, rubs or gallops heard. Has defib/pacer in his L upper chest RESPIRATORY: Clear to auscultation. Breath sounds equal bilaterally. No rales , wheezing or rhonchi ABDOMEN: Soft, non-tender, nondistended. Bowel sounds present and normoactive. No guarding. No rebound. No organomegaly. EXTREMITIES: No clubbing, cyanosis. Has chronic discoloration both LE. R foot - there is an ulcer lateral foot, about 1 inch size, with some fibrous tissue, no purulence, no significant periwound erythema, not tender, no odor. LLE there is erythema L foot, no edema, mild warmth, some dry wounds on his toes. Redness better according to patient and . Did not feel any pulse on L foot. No calf tenderness. NEUROLOGICAL: Awake and alert. Cranial nerves grossly intact. Motor grossly within normal limits. PSYCHIATRIC: Normal affect, calm and cooperative. LINE: No evidence of infection Results - Labs CBC & Chem 7: 10/17/18 07:15 10/17/18 07:15 Labs: Laboratory Results - last 24 hr 10/16/18 10/17/18 10/17/18 17:03 00:40 07:02 WBC RBC Hgb Hct MCV MCH MCHC RDW Plt Count MPV Neut % (Auto) Lymph % (Auto) Mccreary % (Auto) Eos % (Auto) Baso % (Auto) Neut # (Auto) Lymph # (Auto) [place]ccreary # (Auto) Eos # (Auto) Baso # (Auto) WBC Differential Differential Comment PT INR Sodium Potassium Chloride Carbon Dioxide Anion Gap BUN Creatinine Estimated GFR POC Glucose 212 H 250 H 182 H Random Glucose Calcium 10/17/18 10/17/18 10/17/18 07:15 07:15 07:15 WBC 5.9 RBC 3.74 L Hgb 10.9 L Hct 33.1 L MCV 88.5 MCH 29.2 MCHC 33.0 RDW 18.8 H Plt Count 197 MPV 8.6 Neut % (Auto) 70.6 H Lymph % (Auto) 12.0 Mccreary % (Auto) 14.6 H Eos % (Auto) 2.0 Baso % (Auto) 0.8 Neut # (Auto) 4.2 Lymph # (Auto) 0.7 L Mccreary # (Auto) 0.9 Eos # (Auto) 0.1 Baso # (Auto) 0.0 WBC Differential . Differential Comment Auto diff final PT 20.8 H INR 2.1 Sodium 135 L Potassium 3.8 Chloride 99 Carbon Dioxide 28.9 Anion Gap 7 BUN 36 H Creatinine 1.36 H Estimated GFR 51 L POC Glucose Random Glucose 166 H Calcium 8.1 L 10/17/18 12:55 WBC RBC Hgb Hct MCV MCH MCHC RDW Plt Count MPV Neut % (Auto) Lymph % (Auto) Mccreary % (Auto) Eos % (Auto) Baso % (Auto) Neut # (Auto) Lymph # (Auto) Mccreary # (Auto) Eos # (Auto) Baso # (Auto) WBC Differential Differential Comment PT INR Sodium Potassium Chloride Carbon Dioxide Anion Gap BUN Creatinine Estimated GFR POC Glucose 157 H Random Glucose Calcium - Imaging Impressions Chest X-Ray 10/17/18 00:00 CONCLUSION: Cardiomegaly and central pulmonary vascular congestion. Extremity Arterial Study 10/17/18 00:00 CONCLUSION: 1. CATHI on the right 0.94 2. CATHI on the left 0.77. 3. Significant peripheral disease by CTA 10/15/2018 Assessment and Plan - Plan Impression Cellulitis LLE, improving Chronic ulcer R lateral foot - previous multiple amputations and TMA - ulcer does not probe to bone - ?early osteo PVD DM Recommendation Continue IV Vancomycin vascular work-up in progress Rx cellulitis for now Monitor the ulcer which is being followed by the wound care center, and hopefully with revascularization could heal the ulcer Reasonable and probably best to address current issue that he has now which is his LLE Thank you for this consultation
--- NOTE | 2018-10-17 17:50 | CT ---
EXAM DATE: 10/17/2018 5:44 PM EST AGE/SEX: 78 years / Male INDICATIONS: Altered mental status CLINICAL DATA: This is the patient's initial encounter. Patient reports that signs and symptoms have been present for 1 day and indicates a pain score of 0/10. MEDICAL/SURGICAL HISTORY: Congestive heart failure. Diabetes. Hypertension. None. RADIATION DOSE: 43.72 CTDI (mGy) [place] [facility] [place] 08/17/2015. . TECHNIQUE: CT of the head without contrast. Using automated exposure control and adjustment of the mA and/or kV according to patient size, radiation dose was kept as low as reasonably achievable to ob tain optimal diagnostic quality images. DICOM format image data is available electronically for revi ew and comparison. FINDINGS: There is no evidence for intracranial hemorrhage, mass effect, mass lesions, or edema. The visualize d bony structures appear intact. Slight degree of brain atrophy is seen. Slight periventricular whit e matter changes are seen nonspecific mostly consistent with chronic small vessel ischemic changes. There are no signs of acute infarction for technique. CONCLUSION: Slight chronic small vessel ischemic and atrophic changes. . Electronically signed by: Frank Braun MD Board Certified Radiologist 10/17/2018 5:49 PM EST
[2018-10-17] MEDS ORDERED: Pharmacy Ordered Lab Info OTHER ONE (19:45)
[2018-10-17] MEDS: Vancomycin Inj 1,500 MG in Sodium Chlor 0.9% Inj 500 ML IV.SIG SCH (20:07)
[2018-10-17 20:17] LABS: Folate 17.2 ng/mL (3.1-17.5); Thyroid Stimulating Hormone 3.8 uIU/mL (0.358-3.740)
[2018-10-17 22:48] LABS: Bacteria,Urine Rare /hpf; Bilirubin,Urine Negative (Negative); Clarity,Urine Hazy (Clear); Color,Urine Yellow (Yellw/Straw); Glucose,Urine (UA) 50 mg/dL (Negative); Leukocyte Esterase,Urine Negative (Negative); Mucus,Urine Few /lpf (Occasional); Nitrite,Urine Negative (Negative); Specific Gravity,Urine 1.015 (1.002-1.035); Squamous Epithelial Cell,Urine <1 /hpf (0-5); Urobilinogen,Urine 4 or Greater mg/dL (Less than 2)
[2018-10-18 04:03] LABS: Baso % (Auto) 0.3 % (0.0-2.0); Eos # (Auto) 0.1 th/mm3 (0.0-0.4); Eos % (Auto) 1.7 % (0.0-4.0); Hematocrit 32.6 % (39.0-51.0); Hemoglobin 10.9 gm/dL (13.0-17.0); Lymph # (Auto) 0.5 th/mm3 (1.0-4.8); Lymph % (Auto) 8.5 % (9.0-44.0); Mean Corpuscular HGB Conc 33.4 % (32.0-36.0); Mean Corpuscular Volume 86.7 fL (80.0-100.0); Mean Platelet Volume 8.7 fL (7.0-11.0); Mono # (Auto) 0.7 th/mm3 (0.0-0.9); Neut # (Auto) 4.2 th/mm3 (1.8-7.7); Neut % (Auto) 77.5 % (16.0-70.0); Platelet Count 196 th/mm3 (150-450); Red Blood Count 3.75 mil/mm3 (4.50-5.90); Red Cell Distribution Width 18.1 % (11.6-17.2); White Blood Count 5.4 th/mm3 (4.0-11.0)
[2018-10-18 04:13] LABS: INR 1.9 Ratio
[2018-10-18 04:30] LABS: Alanine Aminotransferase 22 U/L (12-78); Albumin 2.5 g/dL (3.4-5.0); Anion Gap 8 meq/L (5-15); Aspartate Aminotransferase 20 U/L (15-37); Blood Urea Nitrogen 31 mg/dL (7-18); Calcium 8.2 mg/dL (8.5-10.1); Carbon Dioxide 27.6 meq/L (21.0-32.0); Chloride 102 meq/L (98-107); Glomerular Filtration Rate 64 mL/min (>89); Glucose,Random 214 mg/dL (74-106); Potassium 4.3 meq/L (3.5-5.1); Sodium 138 meq/L (136-145)
[2018-10-18 04:32] LABS: Alkaline Phosphatase 149 U/L (45-117); Total Protein 7.3 g/dL (6.4-8.2)
[2018-10-18] MEDS ORDERED: Heparin/NS PF Inj 1,000 ML ONE (09:16)
[2018-10-18] MEDS ORDERED: fentaNYL Citrate Inj 100 MCG/2 ML Ampul ONE (09:17)
[2018-10-18] MEDS ORDERED: Heparin 10,000 UNITS/10 ML Vial (for IV use) ONE (09:17)
[2018-10-18] MEDS: Insulin NovoLOG Aspart Correctional Sugar Inj SQ SCH ×4 (10:01→20:25)
[2018-10-18] MEDS: Gabapentin 300 MG Capsule PO SCH ×3 (10:01→18:02)
[2018-10-18] MEDS: Furosemide 40 MG Tablet PO SCH (10:01)
[2018-10-18] MEDS ORDERED: fentaNYL Citrate Inj 100 MCG/2 ML Ampul IV.PUSH ONE ×2 (11:19→11:46)
[2018-10-18] MEDS ORDERED: Heparin 10,000 UNITS/10 ML Vial (for IV use) IV.PUSH ONE (11:33)
[2018-10-18 11:46] LABS: INR 1.6 Ratio; Prothrombin Time 16.4 sec (9.8-11.6)
[2018-10-18] MEDS ORDERED: hydrALAZINE HCl Inj 20 MG/ML Vial ONE (12:05)
[2018-10-18] MEDS ORDERED: hydrALAZINE HCl Inj 20 MG/ML Vial IV.PUSH ONE (12:06)
--- NOTE | 2018-10-18 12:46 | P.OP ---
Preoperative Diagnosis: Bilateral lower extremity critical limb ischemia with tissue loss Postoperative Diagnosis: Bilateral lower extremity critical limb ischemia with tissue loss Date of procedure: 10/18/18 Procedure: 1. Ultrasound-guided access of the right common femoral artery 2. AIF angiogram 3. Left lower extremity third order angiogram 4. Right lower extremity second order angiogram 5. Balloon angioplasty of the left superficial femoral artery 6. Balloon angioplasty of the left popliteal artery 7. Radiological supervision interpretation 8. Conscious sedation Anesthesia: other (Local with conscious sedation) Surgeon: Nestor Diaz MD Estimated blood loss (mL): 5 Operation and Findings: Finding 1. The infrarenal abdominal aorta, right common iliac artery, bilateral external iliac artery were noted to be patent with no evidence of significant stenosis. There was approximately 40% stenosis of the left common iliac artery. There is no pressure gradients across this lesion. 2. Patent left common femoral artery and left profunda femoral artery. Heavily calcified and diseased left superficial femoral artery with multiple areas of in-stent stenosis. There was occlusion of the distal left superficial femoral artery and reconstitution of the left popliteal artery. I was able to successfully cross this occlusion and treat the vessel with balloon angioplasty. At the end of the procedure there is approximately 40% residual stenosis due to heavy calcifications In multiple areas of the superficial femoral artery. This lesions did not respond to balloon angioplasty and prolonged inflation. There is a single vessel runoff to the left foot via the left posterior tibial artery. 3. The right common femoral artery was noted to be heavily calcified and patent. There was multiple areas of significant in-stent stenosis of the right superficial femoral artery stents. The right popliteal artery was noted to be patent. There is a single vessel runoff to the right foot via the right peroneal artery. There is severe microvascular disease involving the right foot. Description of the procedure The patient was taken to the operating room, laid supine on the OR table. After adequate sedation, the patient was prepped and draped in the standard sterile fashion. Timeout was called with all members in the OR in agreement. 1 % lidocaine was injected on the right groin. Using ultrasound guidance, we accessed the right common femoral artery and a 5 Romanian sheath was placed. The catheter's tip was placed in the infrarenal abdominal aorta and an AIF angiogram was performed. The catheter step was placed in the left popliteal artery and a left lower extremity third order angiogram was performed. Destination sheath was placed with the tip in the left common femoral artery. Patient was heparinized. I was able to cross the left superficial femoral artery occlusion. Balloon angioplasty was performed. Completion angiogram was performed. At this point attention was turned to the left common iliac artery lesion. Left common iliac artery angiogram was performed and the pressure gradient was also measured across the lesion. At this point the catheter was placed in the right common femoral artery and the right common femoral artery angiogram was performed. The patient tolerated the procedure well and was taken to the recovery unit with a 6 Romanian sheath in the right common femoral artery. The sheath was to be pulled when the ACT normalizes. Conclusion 78-year-old with a past medical history peripheral vascular disease who underwent multiple endovascular interventions in the past. He presents with a bilateral lower extremity critical limb ischemia with distal. He was noted to have severe left femoralpopliteal occlusive disease that I treated using endovascular techniques. The long-term patency of this repair is questionable given the current anatomy of the left superficial femoral artery. If the patient develops recurrent occlusion of his left superficial femoral artery, he will need a distal bypass. The patient currently have adequate blood flow to the left lower extremity. The right common femoral artery is heavily calcified but patent with no evidence of significant stenosis. The right superficial femoral artery has multiple areas of in-stent stenosis. The right foot has significant microvascular disease that may compromise wound healing. I will schedule the patient for a right lower extremity angiogram and possible intervention possibly tomorrow.
[2018-10-18] MEDS: Collagenase Oint 30 GM Tube TOPICAL SCH (12:59)
[2018-10-18] MEDS: Senna/Docusate Sodium 8.6/50 MG Tablet PO SCH ×2 (12:59→20:25)
[2018-10-18] MEDS: Sod Chloride 0.9% Inj 1,000 ML IV.SIG SCH (13:00)
--- NOTE | 2018-10-18 13:10 | P.PNIM ---
Subjective Interval history: Patient seen S/P LLE angioplasty with Dr. 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 Left LE with previous 5th digit amputation, erythema of the foot and calf with chronic venous stasis skin changes, less swelling today Results Labs CBC & Chem 7: 10/20/18 09:28 10/21/18 06:30 Assessment and Plan Assessment (1) Chronic venous insufficiency: Code(s): I87.2 - Venous insufficiency (chronic) (peripheral) Status: Acute (2) Peripheral vascular disease of lower extremity: Code(s): I73.9 - Peripheral vascular disease, unspecified Status: Acute Plan Cellulitis on left foot Chronic wound on right foot PAD with hx of LE vascular stenting - Pt is a 78 y/o male with diabetes mellitus, atrial fibrillation, CAD, CKD, stage III, PAD, HTN, and CHF/cardiomyopathy with EF 20-25% and has a pacemaker. - Pt presented to the ED on 10/14/18 with complaints of pain and swelling to his left lower extremity. 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 Yesterday his noticed his left foot becoming increasingly more red and it started to ooze. 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 Pt has right toe chronic wound and has been followed by [facility] wound [facility] - Pt was admitted with severe cellulitis and started on Vancomycin - Vancomycin with pharmacy dosing - Appreciate Podiatry consult - No surgical intervention is planned at this time for the chronic right foot wound. - Xray of the left foot (10/14/18): - Amputation fifth toe and metatarsal as above. No bony destructive changes. No acute fracture - Pt continued on his Plavix - Aorta w/Runoff CTA (10/15/18) 1. 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 2. Moderate to severe stenosis of the proximal renal arteries bilaterally, more prominent on the left. 3. Bulky calcified plaque in the common iliac arteries bilaterally with moderate focal stenosis distally on the right and long segment mild to moderate stenosis on the left. 4. Right is effaced nearly entirely stented with diffuse long segment moderate stenosis of the distal right SFA stent. 5. Multiple stents in the left SFA with intervening [place] SFA moderate severe stenoses as well as critical stenosis/occlusion of the proximal distal stent. 6. Heavily calcified popliteal arteries bilaterally with diffusely calcified runoff vessels significantly limiting evaluation for patency. Two-vessel runoff to the feet. 7. Trace bilateral pleural effusions. 8. Additional ancillary findings, as documented in the radiology report - Consult to Vascular surgery, appreciate input. Per Vascular surgery: The patient clinical presentation with a combined etiology of critical limb ischemia with tissue loss and chronic venous insufficiency. CT angiography reviewed: There is significant occlusive disease bilaterally worse on the left than the right. CATHI 10/17/18: 1. CATHI on the right 0.942. CATHI on the left 0.77.3. Significant peripheral disease by CTA 10/15/2018 scheduled for diagnostic angiography of the bilateral lower extremity tomorrow with possible intervention of the LLE. Plan to revascularize the right lower extremity based on the CATHI and the angiogram findings in the next 1-2 days. - vascular surgery unable to done intervention today due to elevaqted INR. INR today 2.1. Coumadin placed in hold - vit K 5 mg PO x 1 10/17/18 - patient S/P 1. Ultrasound-guided access of the right common femoral artery 2. AIF angiogram 3. Left lower extremity third order angiogram 4. Right lower extremity second order angiogram 5. Balloon angioplasty of the left superficial femoral artery 6. Balloon angioplasty of the left popliteal artery 7. Radiological supervision interpretation 8. Conscious sedation with Dr. Diaz 10/18/18 - plan for vascular procedure on RLE tomorrow CHF/Cardiomyopathy with EF 20-25% - Outpt 2D echo (09/27/18): - Mild LVH, estimated EF 20-25% - LA is moderately dilated. RA is mildly dilated - Mildly thickened mitral valve leaflets. Calcifications of both mitral valve leaflets with mild mitral regurg - Aortic valve sclerosis, trace aortic valve regurgitation - Mild to moderate tricuspid valve regurg - Estimated PA pressure 52.6mmHg - Pt continued on Lasix 40mg daily, losartan 100mg daily A. fib - Pt is on Coumadin 5mg --[place], 2.5 Mo- - INR 1.9 (10/15/18) --> 1.6 (10/16/18) --> 2.1 (10/17/18) --> 1.9 (10/18/18) - vit K 5 mg PO x 1 10/17 - Repeat INR in AM CKD, stage III - Labs are stable, Cr typically around 0.8 per outpt records Diabetes mellitus - Pt is on Novolin R 30 units daily at home - Pt is currently on NovoLog SSI - Accu checks AMS 10/17/18 - B12 638, Folate 17.2, TSH 3.80, Ammonia 17 - Head CT 10/17/18 Slight chronic small vessel ischemic and atrophic changes. . Attending Attestation The exam, history, and the medical decision-making described in the above note were completed with the assistance of the mid-level provider. I reviewed and agree with the findings presented. I attest that I had a [id number] encounter with the patient on the same day, and personally performed and documented my assessment and findings in the medical record. Patient examined. Assessment and plan formulated with Amanda Cassidy PA-C. I agree with the above. Progress Note: Quality VTE Deep Vein Thrombosis/Pulmonary Embolism Present on Admission: No
[2018-10-18] MEDS ORDERED: Iohexol 350 MG/ML 100 ML Vial (for Cath Lab) IVCONTRAST ONE (13:38)
--- NOTE | 2018-10-18 13:49 | ECG ---
Date Performed: 10/18/2018 Time Performed: 00:04:04 PTAGE: 78 years EKG: Atrial tachycardia, possible atrial flutter Short NE interval Extensive ST-T changes may be due to myocardial ischemia Abnormal ECG Compared to PREVIOUS TRACING , there has been some improvement in ther anterolateral ST segment green es but otherwise no significant serial change. Clinical correlation remains important to assess the a rrhythmia as well as the dynamic ST changes. PREVIOUS TRACIN08/20/2015 16.30 DOCTOR: Snehal Card Interpretating Date/Time 10/18/2018 13:48:43
[2018-10-18] MEDS: Vancomycin Inj 1,500 MG in Sodium Chlor 0.9% Inj 500 ML IV.SIG SCH (20:21)
[2018-10-19] MEDS: Sod Chloride 0.9% Inj 1,000 ML IV.SIG SCH ×4 (05:21→21:09)
[2018-10-19 08:05] LABS: Baso % (Auto) 0.4 % (0.0-2.0); Eos # (Auto) 0.1 th/mm3 (0.0-0.4); Eos % (Auto) 1.5 % (0.0-4.0); Hematocrit 31.2 % (39.0-51.0); Hemoglobin 10.1 gm/dL (13.0-17.0); Lymph # (Auto) 0.4 th/mm3 (1.0-4.8); Lymph % (Auto) 6.9 % (9.0-44.0); Mean Corpuscular HGB Conc 32.4 % (32.0-36.0); Mean Corpuscular Hemoglobin 28.7 pg (27.0-34.0); Mean Corpuscular Volume 88.7 fL (80.0-100.0); Mono # (Auto) 0.7 th/mm3 (0.0-0.9); Mono % (Auto) 13.9 % (0.0-8.0); Neut % (Auto) 77.3 % (16.0-70.0); Platelet Count 186 th/mm3 (150-450); Red Blood Count 3.52 mil/mm3 (4.50-5.90); Red Cell Distribution Width 18.7 % (11.6-17.2); White Blood Count 5.1 th/mm3 (4.0-11.0)
[2018-10-19 08:11] LABS: INR 1.6 Ratio; Prothrombin Time 16.3 sec (9.8-11.6)
[2018-10-19 08:57] LABS: Calcium 8.2 mg/dL (8.5-10.1); Carbon Dioxide 27.3 meq/L (21.0-32.0); Magnesium 2.2 mg/dL (1.5-2.5); Potassium 3.9 meq/L (3.5-5.1)
[2018-10-19] MEDS: Insulin NovoLOG Aspart Correctional Sugar Inj SQ SCH ×4 (09:38→22:17)
[2018-10-19] MEDS: Gabapentin 300 MG Capsule PO SCH ×3 (09:43→17:28)
[2018-10-19] MEDS: Furosemide 40 MG Tablet PO SCH (09:43)
[2018-10-19] MEDS: Senna/Docusate Sodium 8.6/50 MG Tablet PO SCH ×2 (09:44→21:05)
[2018-10-19] MEDS: Collagenase Oint 30 GM Tube TOPICAL SCH (09:45)
[2018-10-19] MEDS ORDERED: Heparin 10,000 UNITS/10 ML Vial (for IV use) ONE (15:21)
[2018-10-19] MEDS ORDERED: Heparin/NS PF Inj 1,000 ML ONE (15:21)
--- NOTE | 2018-10-19 15:42 | P.PNIM ---
Subjective Interval history: No new complaints. 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 Left LE with previous 5th digit amputation, erythema of the foot and calf with chronic venous stasis skin changes, less swelling today Results Labs CBC & Chem 7: 10/20/18 09:28 10/21/18 06:30 Assessment and Plan Assessment (1) Chronic venous insufficiency: Code(s): I87.2 - Venous insufficiency (chronic) (peripheral) Status: Acute (2) Peripheral vascular disease of lower extremity: Code(s): I73.9 - Peripheral vascular disease, unspecified Status: Acute Plan Cellulitis on left foot Chronic wound on right foot PAD with hx of LE vascular stenting - Pt is a 78 y/o male with diabetes mellitus, atrial fibrillation, CAD, CKD, stage III, PAD, HTN, and CHF/cardiomyopathy with EF 20-25% and has a pacemaker. - Pt presented to the ED on 10/14/18 with complaints of pain and swelling to his left lower extremity. 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 Yesterday his noticed his left foot becoming increasingly more red and it started to ooze. 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 Pt has right toe chronic wound and has been followed by [facility] - Pt was admitted with severe cellulitis and started on Vancomycin - Vancomycin with pharmacy dosing - Appreciate Podiatry consult - No surgical intervention is planned at this time for the chronic right foot wound. - Xray of the left foot (10/14/18): - Amputation fifth toe and metatarsal as above. No bony destructive changes. No acute fracture - Pt continued on his Plavix - Aorta w/Runoff CTA (10/15/18) 1. Dense epiglottic gastric ossifications of the infrarenal abdominal aorta with diffuse [id number] stenosis. 2. Moderate to severe stenosis of the proximal renal arteries bilaterally, more prominent on the left. 3. Bulky calcified plaque in the common iliac arteries bilaterally with moderate focal stenosis distally on the right and long segment mild to moderate stenosis on the left. 4. Right is effaced nearly entirely stented with diffuse long segment moderate stenosis of the distal right SFA stent. 5. Multiple stents in the left SFA with intervening [place] SFA moderate severe stenoses as well as critical stenosis/occlusion of the proximal distal stent. 6. Heavily calcified popliteal arteries bilaterally with diffusely calcified runoff vessels significantly limiting evaluation for patency. Two-vessel runoff to the feet. 7. Trace bilateral pleural effusions. 8. Additional ancillary findings, as documented in the radiology report - Consult to Vascular surgery, appreciate input. Per Vascular surgery: The patient clinical presentation with a combined etiology of critical limb ischemia with tissue loss and chronic venous insufficiency. CT angiography reviewed: There is significant occlusive disease bilaterally worse on the left than the right. CATHI 10/17/18: 1. CATHI on the right 0.942. CATHI on the left 0.77.3. Significant peripheral disease by CTA 10/15/2018 scheduled for diagnostic angiography of the bilateral lower extremity tomorrow with possible intervention of the LLE. Plan to revascularize the right lower extremity based on the CATHI and the angiogram findings in the next 1-2 days. - LLE revascularization with Dr. Diaz (10/18/18) 1. Ultrasound-guided access of the right common femoral artery 2. AIF angiogram 3. Left lower extremity third order angiogram 4. Right lower extremity second order angiogram 5. Balloon angioplasty of the left superficial femoral artery 6. Balloon angioplasty of the left popliteal artery 7. Radiological supervision interpretation 8. Conscious sedation - Pt to undergo RLE revascularization later today - supportive care CHF/Cardiomyopathy with EF 20-25% - Outpt 2D echo (09/27/18): - Mild LVH, estimated EF 20-25% - LA is moderately dilated. RA is mildly dilated - Mildly thickened mitral valve leaflets. Calcifications of both mitral valve leaflets with mild mitral regurg - Aortic valve sclerosis, trace aortic valve regurgitation - Mild to moderate tricuspid valve regurg - Estimated PA pressure 52.6mmHg - Pt continued on Lasix 40mg daily, losartan 100mg daily A. fib - Pt is on Coumadin 5mg -[place], 2.5 Mo- - INR 1.9 (10/15/18) --> 1.6 (10/16/18) --> 2.1 (10/17/18) - vit K 5 mg PO x 1 today - Repeat INR in AM CKD, stage III - Labs are stable, Cr typically around 0.8 per outpt records Diabetes mellitus - Pt is on Novolin R 30 units daily at home - Pt is currently on NovoLog SSI - Accu checks Progress Note: Quality VTE Deep Vein Thrombosis/Pulmonary Embolism Present on Admission: No
[2018-10-19] MEDS ORDERED: Iohexol 350 MG/ML 50 ML Vial (for Cath Lab) IVCONTRAST ONE (15:45)
--- NOTE | 2018-10-19 16:18 | CATHPROC ---
[facility] HIS Report Study Information Study Number Admission Scheduled Start Study Start [id number] Oct 14 2018 8:10PM 10/19/2018 Oct 19 2018 3:07PM [facility] Cardiac Catheterization Admit Source Facility Department Other [facility] - All Source Collection Manager Physician and Clinical Staff Initial Nestor Romano Roller [employer] Leaf Hollie Sr RN Rol[employer] Helen Canales BSN Recorder Monika Moncada,RT(R) (BS) Jorgeub Myron Ruby,RT(R) Procedures Performed Procedure Location (Site) Vessel Name OBSTETRICS NURSE SFA (right) Femoral Art PTCA ADD ON'S Wire insertion Fem Art (left) Femoral Art Equipment Time House Detective Description Size Mfg Part Number Used/Scraped PERCLOSE, PRO GLIDE CLOSER 16:04 [employer] FR 6 [id number] *[id number] Used DEVICE [id number] 15:44 [employer] WIRE, SUPERCORE 300CM 300CM Used *[id number] 15:14 [employer] WIRE, SUPRACORE 190CM 190cm Used *[id number] 15:14 ANGIO-DYNAMICS OMNI FLUSH 65CM CATHETER FR 4 Used *[id number] INTRODUCER SET, 15:14 [employer] FR 5 [id number] *[id number] Used MICROPUNCTURE STIFF BALLOON, ADVANCE 35 LP .035 6 [id number] 15:49 COOK/MARY JANE 6 X 20 Used X 20 *[id number] BALLOON, ADMIRAL IN.PACT 6 X [id number] 15:53 [employer] 130CM Used 150 130CM *[id number] 15:14 [email or web address] PACK, CCL CUSTOM * Used *[id number] 15:44 [employer] 30 GULSHAN INDEFLATOR Used *[id number] PROBE COVER, STERILE [id number] 15:14 [employer] * Used ULTRASOUND W/ GEL *[id number] 15:14 NAMIC MANIFOLD, 4 PORT * Used *[id number] 15:14 NYCOMED OMNIPAQUE, 300 MG, 150ML 150ML [id number] Used 15:14 NYCOMED OMNIPAQUE, 300 MG, 50ML 50ML [id number] Used 15:22 [employer]COMED OMNIPAQUE, 300 MG, 50ML 50ML [id number] Used 15:24 NYCOMED OMNIPAQUE, 300 MG, 50ML 50ML [id number] Used 15:45 NYCOMED OMNIPAQUE, 300 MG, 50ML 50ML [id number] Used [id number] 15:14 TERUMO [employer] SHEATH, FR5 TERUMO (10CM) FR 5 Used *[id number] SHEATH, FR6 PINNACLE [id number] 15:40 TERUMO MEDICAL/MARY AJNE FR 6 Used DESTINATION 45CM *[id number] WIRE, ANGLED GLIDE .035 [id number] 15:14 TERUMO MEDICAL/MARY JANE 260CM Used 260CM *[id number] History: Current Medications Medication Dosage/Unit Route Frequency Last Date/Time Taken COZAAR Statins (any) PLAVIX Coumadin History: Allergies Allergy Reaction codeine NAUSEA VOMITING gabapentin TOO MUCH CONFUSION amitriptyline Bleeding hydromorphone Hallucinations;Confusion *MDRO Multi-Drug Resistant Congestion Organism History: Risk Factors Family History of Hypertension Dyslipidemia Previous NE Previous Heart Failure Premature CAD Yes Yes No No Yes Prior Valve Prior PCI Prior CABG Surgery No No No Cerebrovascular Peripheral Artery Chronic Lung On Dialysis Diabetes Diabetes Therapy Disease Disease Disease No No Yes No Yes Insulin History: Other Current Smoker No Labs Hgb (g/dl) Hct (%) WBC (l/cumm) Platelets (thousands) 11.60-17.00 35.00-51.00 4.00-11.00 150.00-450.00 10.1 31.2 3.5 186 Glucose (mg/dl) BUN (mg/dl) Creatinine (mg/dl) BUN:Creatinine (1:x) 74.00-106.00 7.00-18.00 0.50-1.30 10.00-20.00 166 30 1.0 30 Na (meq/l) K (meq/l) 136.00-145.00 3.50-5.10 140 3.9 INR (PTT:PT) 0.90-1.10 1.6 CPK-MB (ng/ML) 0.50-3.60 Not Drawn Medication Medication Total Dose (Bolus/Oral) Medication Total Dosage/Unit 1% XYLOCAINE 20 mL HEPARIN 3000 units Medications (Bolus/Oral) Medication Time Given Dosage/Unit Administered By Reason 1% XYLOCAINE 10/19/2018 3:38:14 PM 20 mL Nestor Diaz 20 mL 1% XYLOCAINE given in lab by Nestor Diaz in Left Groin via Subcutaneous. HEPARIN 10/19/2018 3:43:37 PM 3000 units Matuszczak, Helen 3000 units HEPARIN given in lab by Helen Canales BSN via Peripheral IV. Medication (Drip) Medication Time Given Dosage/Unit Concentration/Unit Diluent (ml) Solution IV Solutions 10/19/2018 3:07:51 PM 0 mL (IV) 1000 NaCl .9 Patient arrived on IV Solutions via Peripheral IV. Pump/Drip Flow = 30 ml/hr using NaCl .9. Initial Case Assessment Cardiovascular HR NIBP 89 163/81 Edema Present Skin color Skin None Normal Warm Dry Circulatory - Right Pulses Dorsalis Pedis Posterior Tibial Femoral d d 2 Scale (0,1,2,3,4,d) Circulatory - Left Pulses Dorsalis Pedis Posterior Tibial Femoral d d 2 Scale (0,1,2,3,4,d) Circulatory - Lower Extremities Color Lower Right Color Lower Left Normal Normal Neurological State Oriented to time-place- Alert Moves all extremities person Respiration - General Respiration Rate SpO2 (%) O2 (lpm) (B/min) 20 96 2 Chronological Log Time Study Chronological Log 15:07:29 Patient arrived via Bed. 15:07:31 Patient Name, D.O.B, / Armband Verified By R.N. 15:07:31 Consent signed by the physician and the patient and verified by the All Source Collection Manager staff. 15:07:35 Pre-op and post- op instructions given; patient acknowledges understanding of instruction s. 15:07:38 Presedation assessment performed by All Source Collection Manager RN. 15:07:45 Patient has been NPO for More than 6Hrs. 15:07:46 Skin Breakdown- ulcer on right foot, cellulitis, open wounds left foot 15:07:47 Patient Warmer Placed on the Table. 15:07:50 Ricardo Prominences Protected 15:07:51 A # 20 IV was noted in the Antecubital (right). Grade = 0 15:07:51 Patient arrived on IV Solutions via Peripheral IV. Pump/Drip Flow = 30 ml/hr using NaCl .9. 15:07:52 History and physical on the chart or being dictated. Assessment: Initial Case, HR=89 BPM, YHPA=403/81 mmhg, Edema=None, Color=Normal, Skin = Warm, D ry Right Pulses: Gomez Ped=d, Post Tib=d, Femoral=2 Left Pulses: Gomez Ped=d, Post Tib=d, Femoral=2 15:07:53 Lower Right Extremities: Color=Normal Lower Left Extremities: Color=Normal Neurological: State=Alert, Ox3, PRABHAKAR Respiration: Resp=20 B/min, SpO2=96 %, O2=2 lpm Vitals capture started with the following parameters, Patient=Adult, Interval=5 min, Initial Pr sceqme=196 mmHg, 15:12:16 Deflation Rate=5 mmHg, Cuff placed on Right Arm 15:12:59 RSKK=230/81 mmhg, SpO2=84.0 %, Pain=0, Shalonda=8, Milan=2 15:17:58 HR=89 bpm, LFNV=363/92 mmhg, SpO2=95.0 %, Resp=22 B/min, Pain=0, Shalonda=8, [place]=2 15:19:58 Bilateral groins prepped with 2% chlorhexidine, and draped after a 3 minute waiting time. 15:22:59 HR=89 bpm, BOBB=399/101 mmhg, SpO2=95.0 %, Resp=21 B/min, Pain=0, Shalonda=8, [place]=2 15:28:02 HR=89 bpm, CYXL=997/96 mmhg, SpO2=97.0 %, Resp=21 B/min, Pain=0, Shalnoda=8, [place]=2 15:30:05 Pressure channel 2 zeroed. 15:33:03 HR=89 bpm, UMAY=018/92 mmhg, SpO2=97.0 %, Resp=20 B/min, Pain=0, Shalonda=8, Milan=2 Time Out. Correct patient, correct procedure, correct physician, labs, allergies, and equipment verified with lab animal technologist 15:36:12 team present. Fire risk assesment completed (see hard stop sheet for coding). Time Out Conc urred by MD and individual staff in procedure. 15:36:57 Case Start 15:38:00 HR=89 bpm, TFEL=688/96 mmhg, SpO2=98.0 %, Resp=22 B/min, Pain=0, Shalonda=8, Milan=2 15:38:14 20 mL 1% XYLOCAINE given in lab by Nestor Diaz in Left Groin via Subcutaneous. 15:39:34 Access site was Left Femoral Artery. A INTRODUCER SET, MICROPUNCTURE STIFF FR 5 was advanced into the Fem Art (left) using the Mauriciou agustinous 15:39:38 technique. A SHEATH, FR5 TERUMO (10CM) FR 5 was exchanged in the Fem Art (left). This was necessary in ord er to 15:39:51 accomodate a larger catheter. 15:41:03 A WIRE, ANGLED GLIDE .035 260CM 260CM was inserted via Fem Art (left). A SHEATH, FR6 PINNACLE DESTINATION 45CM FR 6 was exchanged in the Fem Art (left). This was nece ssary in order 15:42:43 to accomodate a larger catheter. 15:43:03 HR=88 bpm, MDCB=676/95 mmhg, SpO2=98.0 %, Resp=22 B/min, Pain=0, Shalonda=8, Milan=2 15:43:37 3000 units HEPARIN given in lab by Helen Canales BSN via Peripheral IV. 15:44:08 OMNIPAQUE, 300 MG, 50ML 50ML and 30 GULSHAN INDEFLATOR added. 15:48:05 HR=88 bpm, AMJF=130/90 mmhg, SpO2=97.0 %, Resp=22 B/min, Pain=0, Shalonda=8, Milan=2 A BALLOON, ADVANCE 35 LP .035 6 X 20 6 X 20 was inserted over WIRE, SUPERCORE 300CM 300CM via t he Fem Art 15:48:21 (left). 15:50:36 In the SFA (right) a BALLOON, ADVANCE 35 LP .035 6 X 20 6 X 20 was inflated to 8 atms for 1 20 seconds. 15:51:46 Balloon Removed 15:53:01 HR=88 bpm, QLUV=435/92 mmhg, SpO2=98.0 %, Resp=20 B/min, Pain=0, Shalonda=8, Milan=2 A BALLOON, ADMIRAL IN.PACT 6 X 150 130CM 130CM was inserted over WIRE, SUPERCORE 300CM 300CM v ia the 15:53:10 Fem Art (left). 15:54:05 In the SFA (right) a BALLOON, ADMIRAL IN.PACT 6 X 150 130CM 130CM was inflated to 8 atms f or 180 seconds. 15:58:03 HR=88 bpm, HQCM=623/95 mmhg, SpO2=98.0 %, Resp=21 B/min, Pain=0, Shalonda=8, Milan=2 16:03:02 HR=88 bpm, OULH=537/98 mmhg, SpO2=98.0 %, Resp=23 B/min, Pain=0, Shalonda=8, Milan=2 16:05:07 PERCLOSE, PRO GLIDE CLOSER DEVICE FR 6 placement in the Fem Art (left) 16:08:05 HR=88 bpm, CHPN=414/92 mmhg, SpO2=99.0 %, Resp=23 B/min, Pain=0, Shalonda=8, Milan=2 16:08:41 Case End (Physician broke scrub) 16:11:28 Catheter(s) removed without difficulty 16:11:41 Sterile dressing applied to site 16:13:06 HR=88 bpm, BCIQ=016/92 mmhg, SpO2=98.0 %, Resp=22 B/min, Pain=0, Shalonda=8, Milan=2 16:14:06 Vitals capture stopped. 16:19:43 Patient moved to [facility] End Study - Contrast Media Used In Study Contrast Total Opened (mL) Total Used (mL) Total Wasted (mL) Omnipaque 300 55 55 0 End Study - Maximum Contrast Load Max Contrast Load (mL) 428.9 End Study - Radiation Exposure Fluoro Time Fluoro Dose (mGy) Cine Dose (uGym2) (minutes) 5.4 59 1144 End Study - Patient Disposition Complications Transferred To Interventional Outcome No All Source Collection Manager Holding successful
--- NOTE | 2018-10-19 17:00 | P.OP ---
Preoperative Diagnosis: Right lower extremity critical limb ischemia with tissue loss Postoperative Diagnosis: Right lower extremity critical limb ischemia with tissue loss Date of procedure: 10/19/18 Procedure: 1. Ultrasound-guided access of the left common femoral artery 2. Right lower extremity third order angiogram 3. Balloon angioplasty of the right superficial femoral artery using a 6 mm by 150 drug-coated balloon. 4. Perclose of the left common femoral artery 5. Radiological supervision and interpretation 6. Conscious sedation X 1 hour Anesthesia: other (Local with moderate sedation) Surgeon: Nestor Diaz MD Estimated blood loss (mL): 5 Operation and Findings: Findings 1. Significant in-stent stenosis of the right superficial femoral artery. That was treated using balloon angioplasty via a drug-coated balloon. There is no flow-limiting dissection or residual stenosis on completion angiogram. 2. Single-vessel runoff to the right foot via the right peroneal artery with reconstitution of the right posterior tibial artery and the dorsalis pedis at the level of the ankle. 3. There is microvascular disease involving the right foot that may compromise his wound healing. Description of the procedure The patient was taken to the operating room, laid supine on the OR table. After adequate sedation the patient was prepped and draped in the standard sterile fashion. Timeout was called with all members in the OR in agreement. 1 % lidocaine was injected in the left groin. Using ultrasound gain access we accessed the left common femoral artery. 5 Khmer sheath was placed. A wire was placed into the right superficial femoral artery and a 6 Khmer destination sheath was placed with the tip in the right common femoral artery. The patient was heparinized. Was able to cross the stenosis using a supracore wire. Balloon angioplasty of the right superficial femoral artery was performed using a 6 mm balloon followed by a drug coated balloon measuring 6 mm by 150. Completion angiogram was performed. At this point all wire catheter and sheath were removed. Hemostasis achieved by applying a Perclose device the left common femoral artery. Patient tolerated the procedure well and was taken to recovery unit in stable condition. Conclusion This is a pleasant patient who presents with a right lower extremity critical limb ischemia with tissue loss. He was noted to have in-stent stenosis of the right superficial femoral artery that was treated using balloon angioplasty. Now he has in-line flow to his right foot via the right peroneal artery. He is cleared from vascular surgery standpoint for needed intervention by the podiatry team.
--- NOTE | 2018-10-19 19:53 | P.PNPOD ---
Physical Exam Vital signs: Vital Signs 10/18/18 20:00 10/19/18 00:00 10/19/18 03:33 Temperature 98.5 F 98.2 F 97.3 F L Pulse Rate 81 62 82 Respiratory Rate 18 16 19 Blood Pressure 118/83 125/80 142/65 H Pulse Oximetry 99 98 96 10/19/18 04:00 10/19/18 08:00 10/19/18 12:00 Temperature 97.7 F 97.7 F Pulse Rate 87 85 Respiratory Rate 18 18 Blood Pressure 148/82 H 161/78 H Pulse Oximetry 98 94 L 93 L 10/19/18 16:26 10/19/18 18:00 Temperature 97 F L Pulse Rate 86 Respiratory Rate 18 Blood Pressure 158/69 H Pulse Oximetry 96 96 Intake & Output 10/19/18 10/19/18 10/20/18 06:59 18:59 06:59 Intake Total 1120 / 1120 338 / 338 Output Total 450 / 450 500 / 500 Balance 670 / 670 -162 / -162 Weight 85.5 kg Intake: IV 970 / 970 338 / 338 NS Inj 1,000 ML @ 75 mls/hr IV. 455 / 455 338 / 338 SIG .[id number] [facility] Rx#:[id number] Vancomycin Inj 1,500 MG In NS 515 / 515 Inj 500 ML @ 250 mls/hr IV.SIG Q24H [facility] Rx#:[id number] Oral 150 / 150 0 / 0 Output: Urine 450 / 450 500 / 500 Other: # Bowel Movements 0 Medications and Allergies Active Medications: Active Medications Acetaminophen (Tylenol) 650 mg PO Q4H PRN PRN Reason: Temp > 100.4 Clonidine HCl (Catapres) 0.1 mg PO Q6H PRN PRN Reason: SBP>160, DBP>90 Last Admin: 10/18/18 15:10 Dose: 0.1 mg Clopidogrel Bisulfate (Plavix) 75 mg PO DAILY [facility] Last Admin: 10/19/18 09:44 Dose: 75 mg Collagenase (Santyl Oint) 1 applicatio TOPICAL DAILY [facility] Last Admin: 10/19/18 09:45 Dose: 1 applicatio Dextrose (D50w Vial) 50 ml IV.PUSH UNSCH PRN PRN Reason: PER HYPOGLYCEMIA PROTOCOL Duloxetine HCl (Cymbalta) 20 mg PO DAILY [facility] Last Admin: 10/19/18 09:43 Dose: 20 mg Enalaprilat (Vasotec Inj) 1.25 mg IV.PUSH Q6H PRN PRN Reason: SBP>160, DBP>90 Furosemide (Lasix) 40 mg PO DAILY [facility] Last Admin: 10/19/18 09:43 Dose: 40 mg Gabapentin (Neurontin) 600 mg PO TID [facility] Last Admin: 10/19/18 17:28 Dose: 600 mg Glucagon (Glucagon Inj) 1 mg OTHER PRN PRN PRN Reason: for Hypoglycemia Protocol Pharmacy Profile Note (Vancomycin Consult Pharmacy) 0 mls @ 0 mls/hr OTHER UNSCH [facility] Vancomycin HCl 1,500 mg/ (Sodium Chloride) 515 mls @ 250 mls/hr IV.SIG Q24H [facility] Last Infusion: 10/18/18 22:35 Dose: Infused Sodium Chloride (Ns Inj) 1,000 mls @ 75 mls/hr IV.SIG .[id number] [facility] Last Admin: 10/19/18 11:34 Dose: 75 mls/hr Insulin Aspart (Novolog Insulin Correctional Sugar Inj) 0 unit SQ ACHS [facility]; Protocol Last Admin: 10/19/18 16:49 Dose: Not Given Losartan Potassium (Cozaar) 100 mg PO DAILY [facility] Last Admin: 10/19/18 09:40 Dose: 100 mg Miscellaneous Information ([facility] Ordered Lab Info) 0 each OTHER ONCE ONE Stop: 10/20/18 19:46 Ondansetron HCl (Zofran Inj) 4 mg IV.PUSH Q6H PRN PRN Reason: NAUSEA OR VOMITING Pravastatin Sodium (Pravachol) 40 mg PO QPM [facility] Last Admin: 10/19/18 19:11 Dose: 40 mg Senna/Docusate Sodium (Clara-Colace) 1 tab PO BID [facility] Last Admin: 10/19/18 09:44 Dose: 1 tab Sodium Chloride (Ns Flush) 2 ml IV.FLUSH BID [facility] Last Admin: 10/19/18 09:44 Dose: 2 ml Sodium Chloride (Ns Flush) 2 ml IV.FLUSH PRN PRN PRN Reason: FLUSH AFTER USING IV ACCESS Sodium Chloride (Ns Flush) 2 ml IV.FLUSH PRN PRN PRN Reason: FLUSH AFTER USING IV ACCESS Sodium Chloride (Ns Flush) 2 ml IV.FLUSH BID [facility] Tramadol HCl (Ultram) 50 mg PO Q8H PRN PRN Reason: PAIN 1-10 Last Admin: 10/18/18 14:00 Dose: 50 mg Warfarin Sodium (Coumadin) 4.5 mg PO DAILY@1600 [facility] Last Admin: 10/16/18 15:30 Dose: 4.5 mg Allergies Allergy/AdvReac Type Severity Reaction Status Date / Time amitriptyline Allergy Severe Bleeding Verified 10/14/18 18:15 codeine Allergy Mild NAUSEA Verified 10/14/18 18:15 VOMITING gabapentin Allergy Unknown TOO MUCH Verified 10/14/18 18:15 CONFUSION hydromorphone AdvReac Severe Hallucinati Unverified 05/30/17 17:51 ons;Confusi on *MDRO Multi-Drug Resistant Allergy Unknown Congestion Uncoded 10/14/18 18:15 Organism Home Medications Medication Instructions Recorded Confirmed Type clopidogrel [Plavix] 75 mg PO DAILY 10/14/18 10/14/18 History duloxetine 20 mg PO DAILY 10/14/18 10/14/18 History furosemide 40 mg PO DAILY 10/14/18 10/14/18 History gabapentin 600 mg PO TID 10/14/18 10/14/18 History insulin regular human [Novolin R 1 sliding scale dose SUBCUT UD 10/14/18 History Regular U-100 Insuln] losartan 100 mg PO DAILY 10/14/18 10/14/18 History simvastatin 20 mg PO QPM 10/14/18 10/14/18 History warfarin 4.5 mg PO DAILY 10/14/18 10/14/18 History Results - Labs CBC & Chem 7: 10/19/18 06:34 10/19/18 06:34 Laboratory Results - last 24 hr 10/18/18 10/19/18 10/19/18 20:24 06:34 06:34 WBC 5.1 RBC 3.52 L Hgb 10.1 L Hct 31.2 L MCV 88.7 MCH 28.7 MCHC 32.4 RDW 18.7 H Plt Count 186 MPV 9.0 Neut % (Auto) 77.3 H Lymph % (Auto) 6.9 L Beadle % (Auto) 13.9 H Eos % (Auto) 1.5 Baso % (Auto) 0.4 Neut # (Auto) 4.0 Lymph # (Auto) 0.4 L Beadle # (Auto) 0.7 Eos # (Auto) 0.1 Baso # (Auto) 0.0 WBC Differential . Differential Comment Auto diff final PT INR Sodium 140 Potassium 3.9 Chloride 105 Carbon Dioxide 27.3 Anion Gap 8 BUN 30 H Creatinine 1.04 Estimated GFR 69 L POC Glucose 166 H Random Glucose 166 H Calcium 8.2 L Magnesium 2.2 10/19/18 10/19/18 10/19/18 06:34 07:52 12:32 WBC RBC Hgb Hct MCV MCH MCHC RDW Plt Count MPV Neut % (Auto) Lymph % (Auto) Beadle % (Auto) Eos % (Auto) Baso % (Auto) Neut # (Auto) Lymph # (Auto) Beadle # (Auto) Eos # (Auto) Baso # (Auto) WBC Differential Differential Comment PT 16.3 H INR 1.6 Sodium Potassium Chloride Carbon Dioxide Anion Gap BUN Creatinine Estimated GFR POC Glucose 164 H 154 H Random Glucose Calcium Magnesium 10/19/18 16:47 WBC RBC Hgb Hct MCV MCH MCHC RDW Plt Count MPV Neut % (Auto) Lymph % (Auto) Beadle % (Auto) Eos % (Auto) Baso % (Auto) Neut # (Auto) Lymph # (Auto) Beadle # (Auto) Eos # (Auto) Baso # (Auto) WBC Differential Differential Comment PT INR Sodium Potassium Chloride Carbon Dioxide Anion Gap BUN Creatinine Estimated GFR POC Glucose 136 H Random Glucose Calcium Magnesium Microbiology 10/14/18 18:45 Blood - Peripheral Aerobic Blood Culture - Final No growth in 5 days 10/14/18 18:45 Blood - Peripheral Anaerobic Blood Culture - Final No growth in 5 days 10/14/18 18:40 Blood - Peripheral Aerobic Blood Culture - Final No growth in 5 days 10/14/18 18:40 Blood - Peripheral Anaerobic Blood Culture - Final No growth in 5 days Assessment and Plan - Assessment (1) Right foot ulcer Code(s): L97.519 - Non-pressure chronic ulcer of other part of right foot with unspecified severity Status: Acute (2) Cellulitis of left lower extremity Code(s): L03.116 - Cellulitis of left lower limb Status: Acute (3) Peripheral vascular disease of lower extremity Code(s): I73.9 - Peripheral vascular disease, unspecified Status: Acute - Plan Discussed possible debridement of ulcer and bone biopsy with culture right foot on Monday with his regulatory affairs coordinator, Dr Natarajan. Will plan NPO after midnight tomorrow night (Monday) for possible surgery Monday after he is evaluated by Dr Natarajan.
[2018-10-19] MEDS: Vancomycin Inj 1,500 MG in Sodium Chlor 0.9% Inj 500 ML IV.SIG SCH (21:05)
[2018-10-20] MEDS: Sod Chloride 0.9% Inj 1,000 ML IV.SIG SCH ×4 (07:09→23:06)
[2018-10-20 08:34] LABS: Calcium 8.6 mg/dL (8.5-10.1); Carbon Dioxide 24.4 meq/L (21.0-32.0); Potassium 4.3 meq/L (3.5-5.1)
--- NOTE | 2018-10-20 09:41 | P.PNVS ---
Subjective Subjective/Hospital Course: doing well denies any pain Objective Vital Signs / I&O: Vital Signs 10/19/18 12:00 10/19/18 16:26 10/19/18 18:00 Temperature 97.7 F 97 F L Pulse Rate 85 86 Respiratory Rate 18 18 Blood Pressure 161/78 H 158/69 H Pulse Oximetry 93 L 96 96 10/19/18 20:00 10/19/18 20:49 10/20/18 00:00 Temperature 97.7 F 97.4 F L Pulse Rate 89 105 H Respiratory Rate 18 18 Blood Pressure 145/65 H 158/68 H Pulse Oximetry 93 L 92 L 95 10/20/18 04:00 Temperature 97.9 F Pulse Rate 87 Respiratory Rate 18 Blood Pressure 160/87 H Pulse Oximetry 95 Intake & Output 10/19/18 10/20/18 10/20/18 18:59 06:59 18:59 Intake Total 338 / 338 1875 / 1875 1000 / 1000 Output Total 500 / 500 450 / 450 Balance -162 / -162 1425 / 1425 1000 / 1000 Weight 87 kg Intake: IV 338 / 338 1515 / 1515 1000 / 1000 NS Inj 1,000 ML @ 75 mls/hr IV. 338 / 338 1000 / 1000 1000 / 1000 SIG .[id number] [facility] Rx#:[id number] Vancomycin Inj 1,500 MG In NS 515 / 515 Inj 500 ML @ 250 mls/hr IV.SIG Q24H [facility] Rx#:[id number] Oral 0 / 0 360 / 360 Output: Urine 500 / 500 450 / 450 Other: # Bowel Movements 0 Physical Exam: Bilateral groins clean dry intact Multiphasic pedal signals bilaterally. Laboratory Results - last 24 hr 10/19/18 10/19/18 10/19/18 12:32 16:47 22:17 Sodium Potassium Chloride Carbon Dioxide Anion Gap BUN Creatinine Estimated GFR POC Glucose 154 H 136 H 132 H Random Glucose Calcium 10/20/18 07:47 Sodium 139 Potassium 4.3 Chloride 105 Carbon Dioxide 24.4 Anion Gap 10 BUN 29 H Creatinine 1.11 Estimated GFR 64 L POC Glucose Random Glucose 207 H Calcium 8.6 Microbiology 10/14/18 18:45 Aerobic Blood Culture - Final Blood - Peripheral No growth in 5 days Anaerobic Blood Culture - Final No growth in 5 days 10/14/18 18:40 Aerobic Blood Culture - Final Blood - Peripheral No growth in 5 days Anaerobic Blood Culture - Final No growth in 5 days Assessment and Plan - Assessment (1) Chronic venous insufficiency Code(s): I87.2 - Venous insufficiency (chronic) (peripheral) Status: Acute (2) Peripheral vascular disease of lower extremity Code(s): I73.9 - Peripheral vascular disease, unspecified Status: Acute - Plan Status post bilateral lower extremity endovascular revascularization postop day 1 and 2. Stable from vascular surgery standpoint for right foot debridement. Stable for discharge from vascular surgery standpoint. We will schedule follow-up appointment in 2 weeks. Office will call patient with time and date on Monday. Nestor Diaz MD [facility] [phone]
[2018-10-20] MEDS: Senna/Docusate Sodium 8.6/50 MG Tablet PO SCH ×2 (10:00→20:35)
[2018-10-20] MEDS: Gabapentin 300 MG Capsule PO SCH ×3 (10:01→17:37)
[2018-10-20] MEDS: Furosemide 40 MG Tablet PO SCH (10:01)
[2018-10-20] MEDS: Collagenase Oint 30 GM Tube TOPICAL SCH (10:05)
[2018-10-20 10:21] LABS: Baso % (Auto) 0.5 % (0.0-2.0); Eos % (Auto) 0.5 % (0.0-4.0); Hematocrit 36.4 % (39.0-51.0); Hemoglobin 11.9 gm/dL (13.0-17.0); Lymph # (Auto) 0.4 th/mm3 (1.0-4.8); Lymph % (Auto) 6.5 % (9.0-44.0); Mean Corpuscular HGB Conc 32.6 % (32.0-36.0); Mean Corpuscular Hemoglobin 29.1 pg (27.0-34.0); Mean Corpuscular Volume 89.2 fL (80.0-100.0); Mean Platelet Volume 9.2 fL (7.0-11.0); Mono # (Auto) 0.8 th/mm3 (0.0-0.9); Mono % (Auto) 12.2 % (0.0-8.0); Neut # (Auto) 5.3 th/mm3 (1.8-7.7); Neut % (Auto) 80.3 % (16.0-70.0); Platelet Count 244 th/mm3 (150-450); Red Blood Count 4.08 mil/mm3 (4.50-5.90); White Blood Count 6.6 th/mm3 (4.0-11.0)
[2018-10-20] MEDS: Insulin NovoLOG Aspart Correctional Sugar Inj SQ SCH ×4 (11:17→23:06)
--- NOTE | 2018-10-20 18:04 | P.PNIM ---
Subjective Interval history: Pt more confused this evening. Likely . Pt reoriented with conversation/cues. 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 Left LE with previous 5th digit amputation, erythema of the foot and calf with chronic venous stasis skin changes, less swelling today Results Labs CBC & Chem 7: 10/20/18 09:28 10/21/18 06:30 Assessment and Plan Assessment (1) Chronic venous insufficiency: Code(s): I87.2 - Venous insufficiency (chronic) (peripheral) Status: Acute (2) Peripheral vascular disease of lower extremity: Code(s): I73.9 - Peripheral vascular disease, unspecified Status: Acute Plan Cellulitis on left foot Chronic wound on right foot PAD with hx of LE vascular stenting - Pt is a 78 y/o male with diabetes mellitus, atrial fibrillation, CAD, CKD, stage III, PAD, HTN, and CHF/cardiomyopathy with EF 20-25% and has a pacemaker. - Pt presented to the ED on 10/14/18 with complaints of pain and swelling to his left lower extremity. 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 Yesterday his noticed his left foot becoming increasingly more red and it started to ooze. 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 Pt has right toe chronic wound and has been followed by [place] [facility] - Pt was admitted with severe cellulitis and started on Vancomycin - Vancomycin with pharmacy dosing - Appreciate Podiatry consult - No surgical intervention is planned at this time for the chronic right foot wound. - Xray of the left foot (10/14/18): - Amputation fifth toe and metatarsal as above. No bony destructive changes. No acute fracture - Pt continued on his Plavix - Aorta w/Runoff CTA (10/15/18) 1. 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 2. Moderate to severe stenosis of the proximal renal arteries bilaterally, more prominent on the left. 3. Bulky calcified plaque in the common iliac arteries bilaterally with moderate focal stenosis distally on the right and long segment mild to moderate stenosis on the left. 4. Right is effaced nearly entirely stented with diffuse long segment moderate stenosis of the distal right SFA stent. 5. Multiple stents in the left SFA with intervening [place] SFA moderate severe stenoses as well as critical stenosis/occlusion of the proximal distal stent. 6. Heavily calcified popliteal arteries bilaterally with diffusely calcified runoff vessels significantly limiting evaluation for patency. Two-vessel runoff to the feet. 7. Trace bilateral pleural effusions. 8. Additional ancillary findings, as documented in the radiology report - Consult to Vascular surgery, appreciate input. Per Vascular surgery: The patient clinical presentation with a combined etiology of critical limb ischemia with tissue loss and chronic venous insufficiency. CT angiography reviewed: There is significant occlusive disease bilaterally worse on the left than the right. CATHI 10/17/18: 1. CATHI on the right 0.942. CATHI on the left 0.77.3. Significant peripheral disease by CTA 10/15/2018 scheduled for diagnostic angiography of the bilateral lower extremity tomorrow with possible intervention of the LLE. Plan to revascularize the right lower extremity based on the CATHI and the angiogram findings in the next 1-2 days. - LLE revascularization with Dr. Diaz (10/18/18) 1. Ultrasound-guided access of the right common femoral artery 2. AIF angiogram 3. Left lower extremity third order angiogram 4. Right lower extremity second order angiogram 5. Balloon angioplasty of the left superficial femoral artery 6. Balloon angioplasty of the left popliteal artery 7. Radiological supervision interpretation 8. Conscious sedation - Pt underwent RLE revascularization 10/19/18 - Pt to undergo right foot debridement and bone biopsy with Dr. Natarajan 10/21/18 - supportive care CHF/Cardiomyopathy with EF 20-25% - Outpt 2D echo (09/27/18): - Mild LVH, estimated EF 20-25% - LA is moderately dilated. RA is mildly dilated - Mildly thickened mitral valve leaflets. Calcifications of both mitral valve leaflets with mild mitral regurg - Aortic valve sclerosis, trace aortic valve regurgitation - Mild to moderate tricuspid valve regurg - Estimated PA pressure 52.6mmHg - Pt continued on Lasix 40mg daily, losartan 100mg daily A. fib - Pt is on Coumadin 5mg -, 2.5 Mo--- - INR 1.9 (10/15/18) --> 1.6 (10/16/18) --> 2.1 (10/17/18) - vit K 5 mg PO x 1 today - Repeat INR in AM CKD, stage III - Labs are stable, Cr typically around 0.8 per outpt records Diabetes mellitus - Pt is on Novolin R 30 units daily at home - Pt is currently on NovoLog SSI - Accu checks Progress Note: Quality VTE Deep Vein Thrombosis/Pulmonary Embolism Present on Admission: No
[2018-10-20] MEDS ORDERED: Pharmacy Ordered Lab Info OTHER ONE (19:45)
[2018-10-20] MEDS: Vancomycin Inj 1,500 MG in Sodium Chlor 0.9% Inj 500 ML IV.SIG SCH (19:53)
[2018-10-21] MEDS ORDERED: Neomycin/Polymyxin G.U. Irrigant 1 ML Ampul ONE (07:22)
[2018-10-21] MEDS ORDERED: Lidocaine 2% Inj 50 ML Vial ONE (07:24)
[2018-10-21] MEDS ORDERED: Bupivacaine PF 0.5% Inj 30 ML Vial ONE (07:24)
--- NOTE | 2018-10-21 09:01 | P.BOP ---
- Preoperative Diagnosis (1) Cellulitis (2) Neuropathy (3) Peripheral vascular disease of lower extremity - Postoperative Diagnosis (1) Diabetes (2) Right foot ulcer (3) Peripheral vascular disease of lower extremity Date of procedure: 10/21/18 Procedure: Right foot incision and debridement Right 5th metatarsal bone biopsy Surgeon: Brenda Natarajan DPM Estimated blood loss (mL): 2 Tourniquet time (min): 0 (none) Pathology: none sent Condition: stable Disposition: PACU
[2018-10-21] MEDS: Insulin NovoLOG Aspart Correctional Sugar Inj SQ SCH ×4 (09:12→21:29)
[2018-10-21] MEDS ORDERED: Bisacodyl 10 MG Supp RECTAL PRN (09:17)
[2018-10-21] MEDS ORDERED: Promethazine 25 MG Supp RECTAL PRN (09:17)
[2018-10-21] MEDS ORDERED: Misc Info for Pharmacy OTHER STA (09:17)
[2018-10-21] MEDS: Gabapentin 300 MG Capsule PO SCH ×3 (09:52→17:18)
[2018-10-21] MEDS: Furosemide 40 MG Tablet PO SCH (09:53)
[2018-10-21] MEDS: Collagenase Oint 30 GM Tube TOPICAL SCH (09:54)
[2018-10-21] MEDS: Sod Chloride 0.9% Inj 1,000 ML IV.SIG SCH ×3 (10:02→21:31)
[2018-10-21] MEDS: Senna/Docusate Sodium 8.6/50 MG Tablet PO SCH ×2 (10:08→21:26)
--- NOTE | 2018-10-21 11:14 | MP ---
cc: Brenda Natarajan [facility] DATE OF OPERATION: PREOPERATIVE DIAGNOSES: 1. Right foot ulcer. 2. Peripheral vascular disease. 3. Possible right foot osteo. POSTOPERATIVE DIAGNOSES: 1. Right foot ulcer. 2. Peripheral vascular disease. 3. Possible right foot osteo. PROCEDURE PERFORMED: 1. Right foot bone biopsies. 2. Right foot incision and drainage. ANESTHESIOLOGIST: Dr. Fraga. ANESTHESIA: LMA. HEMOSTASIS: None. ESTIMATED BLOOD LOSS: Less than 2 mL. MATERIALS: 3-0 nylon. INJECTABLES: None. BRIEF HISTORY: The patient is a 78-year-old male well known to me with a chronic history of right foot wound, which heals and then opens up. He sees local wound care and has done well. He has seen Dr. Haynes multiple times in the past for vascular intervention. No recent intervention. Dr. Diaz carried out the bilateral neurectomy revascularization on 10/20/2018. The patient has done well. He is cleared by vascular for right foot procedure. Risks, benefits, pros and cons were discussed with the patient. Freely consented to surgical intervention, no guarantees were given nor implied. DESCRIPTION OF PROCEDURE. The patient was brought to the operating room, and placed on the operating room in supine position. After MAC anesthesia was administered, the right foot was prepped, scrubbed, and draped in usual sterile aseptic manner. Timeout was called, identifiers noted, all in agreement. Site marked and visualized. The right fifth metatarsal bone base was palpated. An incision was made on the dorsal, carried down to the bony aspect of it, and deepened via blunt dissection. Bone biopsy was taken with Jamshidi needle passed off the field. One for aerobic Gram stain, culture and sensitivity, and anaerobic and the other for pathology gross. This was carried out through the fifth metatarsal. Attention was then directed to the plantar ulcer where using a #15 blade, the wound was sharply debrided, excised necrotic nonviable tissue using a #15 blade. The wound measured approximately 5 x 5 after debridement. There was a granular base to the periwound, but the central aspect of the wound was fairly fibrotic. Dry sterile dressings were applied after irrigation with and a dorsal closure of the incision site. Adaptic 4 x 4s, Rick, and a light Brian wrap was applied onto the right leg. The patient tolerated the procedure and the patient was transferred back, you for a brief period of postop monitoring. He will be discharged home per PACU protocol. The patient will be followed appropriately while in-house and then followup with within 1 week of discharge. JANIS De Guzman , 09:15 AM , 09:22 AM
[2018-10-21 15:47] LABS: INR 1.8 Ratio; Prothrombin Time 18.2 sec (9.8-11.6)
--- NOTE | 2018-10-21 16:35 | P.DS ---
DS: Providers Date of admission: 10/14/18 20:10 Primary care physician: UNKNOWN Consults: 10/17/18 15:11 Consult to Infectious Diseases Routine Consulting Provider: May Marks Reason for Consultation: ? early osteomyelitis and cellulitis Notified:: Service Spoke with:: Linnea Date Notified:: 10/17/18 Time Notified:: 15:18 Ordering Provider: NAVDEEP 10/14/18 21:12 Consult to Podiatry Routine Consulting Provider: Arnoldo Bradshaw Reason for Consultation: [facility]-podiatry severe left foot cellulitis followed by podiatry s/p amputation left 5th toe rt toes Notified:: Service Spoke with:: anali Date Notified:: 10/14/18 Time Notified:: 22:31 Ordering Provider: LILY Brief History from admission: 78-year-old male who comes in complaining of pain and swelling to his left lower extremity. 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 Has chronic discoloration to both lower extremities due to severe peripheral vascular disease. Yesterday his noticed his foot becoming increasingly been more red and it started to ooze this was the left foot with pain to that area he denies fever or chills. Patient's lab work is essentially unremarkable does have a history of cardiomyopathy chronic heart murmur congestive heart failure diabetes depression hyperlipidemia chronic neuropathy atrial fibrillation he has had a pacemaker insertion CKD stage III coronary artery disease. Also has had a stated above left fifth toe amputation and right toe chronic wound and has been followed by [place] [facility] also has had the right toes of the right foot amputated. At this time and appears to have severe cellulitis will admit consult podiatry and will start him on IV vancomycin. Patient denies any fever , chills, chest pain, shortness of breath, nausea or vomiting. DS: Diagnosis Discharge Diagnosis (1) Chronic venous insufficiency: Status: Acute (2) Peripheral vascular disease of lower extremity: Status: Acute DS: Summary Cellulitis on left foot Chronic wound on right foot PAD with hx of LE vascular stenting - Pt is a 78 y/o male with diabetes mellitus, atrial fibrillation, CAD, CKD, stage III, PAD, HTN, and CHF/cardiomyopathy with EF 20-25% and has a pacemaker. - Pt presented to the ED on 10/14/18 with complaints of pain and swelling to his left lower extremity. 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 Yesterday his noticed his left foot becoming increasingly more red and it started to ooze. 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 Pt has right toe chronic wound and has been followed by [place] [facility] - Pt was admitted with severe cellulitis and started on Vancomycin - Vancomycin with pharmacy dosing - Appreciate Podiatry consult - No surgical intervention is planned at this time for the chronic right foot wound. - Xray of the left foot (10/14/18): - Amputation fifth toe and metatarsal as above. No bony destructive changes. No acute fracture - Pt continued on his Plavix - Aorta w/Runoff CTA (10/15/18) 1. 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 2. Moderate to severe stenosis of the proximal renal arteries bilaterally, more prominent on the left. 3. Bulky calcified plaque in the common iliac arteries bilaterally with moderate focal stenosis distally on the right and long segment mild to moderate stenosis on the left. 4. Right is effaced nearly entirely stented with diffuse long segment moderate stenosis of the distal right SFA stent. 5. Multiple stents in the left SFA with intervening [place] SFA moderate severe stenoses as well as critical stenosis/occlusion of the proximal distal stent. 6. Heavily calcified popliteal arteries bilaterally with diffusely calcified runoff vessels significantly limiting evaluation for patency. Two-vessel runoff to the feet. 7. Trace bilateral pleural effusions. 8. Additional ancillary findings, as documented in the radiology report - Consult to Vascular surgery, appreciate input. Per Vascular surgery: The patient clinical presentation with a combined etiology of critical limb ischemia with tissue loss and chronic venous insufficiency. CT angiography reviewed: There is significant occlusive disease bilaterally worse on the left than the right. CATHI 10/17/18: 1. CATHI on the right 0.942. CATHI on the left 0.77.3. Significant peripheral disease by CTA 10/15/2018 scheduled for diagnostic angiography of the bilateral lower extremity tomorrow with possible intervention of the LLE. Plan to revascularize the right lower extremity based on the CATHI and the angiogram findings in the next 1-2 days. - LLE revascularization with Dr. Diaz (10/18/18) 1. Ultrasound-guided access of the right common femoral artery 2. AIF angiogram 3. Left lower extremity third order angiogram 4. Right lower extremity second order angiogram 5. Balloon angioplasty of the left superficial femoral artery 6. Balloon angioplasty of the left popliteal artery 7. Radiological supervision interpretation 8. Conscious sedation - Pt underwent RLE revascularization with Dr. Diaz (10/19/18) 1. Ultrasound-guided access of the left common femoral artery 2. Right lower extremity third order angiogram 3. Balloon angioplasty of the right superficial femoral artery using a 6 mm by 150 drug-coated balloon. 4. Perclose of the left common femoral artery - Pt taken to the OR by Podiatry, Dr. Natarajan, 10/21/18 - Pt underwent right foot bone biopsy --> results pending - right foot incision & drainage - Pt treated with Vancomycin (10/15/18 - 10/21/18) - antibiotic changed to cindamycin 450mg TID x 9d. CHF/Cardiomyopathy with EF 20-25% - Outpt 2D echo (09/27/18): - Mild LVH, estimated EF 20-25% - LA is moderately dilated. RA is mildly dilated - Mildly thickened mitral valve leaflets. Calcifications of both mitral valve leaflets with mild mitral regurg - Aortic valve sclerosis, trace aortic valve regurgitation - Mild to moderate tricuspid valve regurg - Estimated PA pressure 52.6mmHg - Pt continued on Lasix 40mg daily, losartan 100mg daily A. fib - Pt is on Coumadin 5mg -[place], 2.5 Mo- - INR 1.9 (10/15/18) --> 1.6 (10/16/18) --> 2.1 (10/17/18) - vit K 5 mg PO x 1 today - Repeat INR in AM CKD, stage III - Labs are stable, Cr typically around 0.8 per outpt records Diabetes mellitus - Pt is on Novolin R 30 units daily at home - resume home regimen upon discharge Time Spent with Patient Total time spent providing and/or coordinating discharge services: Quality: VTE Deep Vein Thrombosis/Pulmonary Embolism Present on Admission: No Exam Narrative Exam Narrative: GENERAL: This is a well-nourished, well-developed patient, in no apparent distress. CARDIOVASCULAR: Regular rate and rhythm without murmurs, gallops, or rubs. RESPIRATORY: Clear to auscultation. Breath sounds equal bilaterally. No wheezes , rales, or rhonchi. GASTROINTESTINAL: Abdomen soft, non-tender, nondistended. Normal active bowel sounds MUSCULOSKELETAL: RLE bandaged c/d/i NEURO: Alert & Oriented x4 to person, place, time, situation. Moves all ext x4 Results Labs on day of discharge: Labs from last 24 hours 10/21/18 10/21/18 10/21/18 16:16 15:02 12:39 PT 18.2 H INR 1.8 Creatinine Estimated GFR POC Glucose 247 H 227 H Vancomycin Trough 10/21/18 10/21/18 10/21/18 08:56 07:16 06:30 PT INR Creatinine 1.07 Estimated GFR 67 L POC Glucose 209 H 204 H Vancomycin Trough 10/20/18 10/20/18 10/20/18 22:52 19:55 16:40 PT INR Creatinine Estimated GFR POC Glucose 211 H 194 H Vancomycin Trough 18.0 H Impressions ITS Impressions Aorta w/Runoff CTA 10/15/18 00:00 CONCLUSION: 1. 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 2. Moderate to severe stenosis of the proximal renal arteries bilaterally, more prominent on the left. 3. Bulky calcified plaque in the common iliac arteries bilaterally with moderate focal stenosis distally on the right and long segment mild to moderate stenosis on the left. 4. Right is effaced nearly entirely stented with diffuse long segment moderate stenosis of the distal right SFA stent. 5. Multiple stents in the left SFA with intervening [place] SFA moderate severe stenoses as well as critical stenosis/occlusion of the proximal distal stent. 6. Heavily calcified popliteal arteries bilaterally with diffusely calcified runoff vessels significantly limiting evaluation for patency. Two-vessel runoff to the feet. 7. Trace bilateral pleural effusions. 8. Additional ancillary findings, as above. Foot X-Ray 10/15/18 00:00 CONCLUSION: 1. Status post transmetatarsal amputation. 2. Diffuse soft tissue prominence about the amputation stump with subtle cortical irregularity involving the fifth metatarsal. Cannot exclude early osteomyelitis in the appropriate clinical setting. Chest X-Ray 10/17/18 00:00 CONCLUSION: Cardiomegaly and central pulmonary vascular congestion. Extremity Arterial Study 10/17/18 00:00 CONCLUSION: 1. CATHI on the right 0.94 2. CATHI on the left 0.77. 3. Significant peripheral disease by CTA 10/15/[address] 10/17/18 00:00 CONCLUSION: Slight chronic small vessel ischemic and atrophic changes. . Discharge Plan Discharge Disposition Patient Disposition: Discharge to SNF Discharge Condition Condition: Stable Discharge Order Discharge Orders: Discharge Order (Routine); Ordered 10/22/18 Ordered By: Stalin Zamarripa Vascular Surgery Clear for Discharge (Routine); Ordered 10/20/18 Ordered By: Nestor Diaz Discharge Details Anticipated Discharge Date: 10/22/18 Discharge Comment: f/u with Dr. Natarajan in 1 year f/u with PCP, one week after discharge from SNF Physicians Team ED Provider: Kenya Villafuerte Primary Care Provider: UNKNOWN, Attending Provider: Stalin Zamarripa Other Providers: Arnoldo Bradshaw ; May Marks Rxs /Orders / Referrals /Forms Prescriptions: New clindamycin HCl 300 mg capsule 300 mg PO Q8H 7 Days Qty: 21 RF: 0 tramadol [Ultram] 50 mg tablet 50 mg PO Q6H PRN (Reason: pain) Qty: 60 RF: 0 Continue furosemide 40 mg Tablet 40 mg PO DAILY RF: 0 gabapentin 600 mg Tablet 600 mg PO TID RF: 0 clopidogrel [Plavix] 75 mg Tablet 75 mg PO DAILY RF: 0 warfarin 4 mg Tablet 4.5 mg PO DAILY RF: 0 simvastatin 20 mg Tablet 20 mg PO QPM RF: 0 insulin regular human [Novolin R Regular U-100 Insuln] 100 unit/mL Solution 1 sliding scale dose SUBCUT UD RF: 0 losartan 100 mg Tablet 100 mg PO DAILY RF: 0 duloxetine 20 mg Capsule,Delayed Release(Dr/Ec) 20 mg PO DAILY RF: 0 Referrals: Gio Cesar M.D. [FAMILY MEDICINE] - See Instructions (follow up in 1 week) Nestor Diaz MD [Physician] - See Instructions (follow up in 2 weeks) Brenda Natarajan DPM [Physician] - See Instructions (follow up in 1 week) Status ED Status: Left Department
[2018-10-21] MEDS: Vancomycin Inj 1,500 MG in Sodium Chlor 0.9% Inj 500 ML IV.SIG SCH (21:25)
[2018-10-22] MEDS: Sod Chloride 0.9% Inj 1,000 ML IV.SIG SCH (07:18)
[2018-10-22 08:57] LABS: INR 1.7 Ratio; Prothrombin Time 17.4 sec (9.8-11.6)
[2018-10-22] MEDS: Insulin NovoLOG Aspart Correctional Sugar Inj SQ SCH ×4 (09:14→21:29)
[2018-10-22] MEDS: Collagenase Oint 30 GM Tube TOPICAL SCH (09:34)
[2018-10-22] MEDS: Gabapentin 300 MG Capsule PO SCH ×3 (09:34→17:23)
[2018-10-22] MEDS: Senna/Docusate Sodium 8.6/50 MG Tablet PO SCH ×2 (09:34→21:25)
[2018-10-22] MEDS: Furosemide 40 MG Tablet PO SCH (09:34)
--- NOTE | 2018-10-22 16:16 | P.PNIM ---
Subjective Interval history: received call from the nurse that DAVID is edematous Patient offers no other concerns/complaints Patient's reports that she noticed the Left arm is swollen and bruised that was not there yesterday Physical Exam Vital signs: Last Vital Signs Temp 98.1 F 10/22/18 12:00 Pulse 91 H 10/22/18 12:00 Resp 18 10/22/18 12:00 BP 176/85 H 10/22/18 12:00 Pulse Ox 94 L 10/22/18 12:00 Narrative: General: NAD, AAOx3 SKIN: GARLANDE edematous with moderate amount of ecchymosis Chest: CTA Cardiac: Regular Abd: +BS, soft ND/NT Ext: Right foot with previous amputation of all toes, chronic wound on the right lateral foot without any drainage or erythema. Left LE with previous 5th digit amputation, erythema of the foot and calf with chronic venous stasis skin changes, less swelling today Results Labs CBC & Chem 7: 10/20/18 09:28 10/22/18 07:13 Assessment and Plan Assessment (1) Chronic venous insufficiency: Code(s): I87.2 - Venous insufficiency (chronic) (peripheral) Status: Acute (2) Peripheral vascular disease of lower extremity: Code(s): I73.9 - Peripheral vascular disease, unspecified Status: Acute Plan Cellulitis on left foot Chronic wound on right foot PAD with hx of LE vascular stenting - Pt is a 78 y/o male with diabetes mellitus, atrial fibrillation, CAD, CKD, stage III, PAD, HTN, and CHF/cardiomyopathy with EF 20-25% and has a pacemaker. - Pt presented to the ED on 10/14/18 with complaints of pain and swelling to his left lower extremity. 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 Yesterday his noticed his left foot becoming increasingly more red and it started to ooze. 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 Pt has right toe chronic wound and has been followed by [facility] - Pt was admitted with severe cellulitis and started on Vancomycin - Vancomycin with pharmacy dosing - Appreciate Podiatry consult - No surgical intervention is planned at this time for the chronic right foot wound. - Xray of the left foot (10/14/18): - Amputation fifth toe and metatarsal as above. No bony destructive changes. No acute fracture - Pt continued on his Plavix - Aorta w/Runoff CTA (10/15/18) 1. Dense epiglottic gastric ossifications of the infrarenal abdominal aorta with diffuse [id number] stenosis. 2. Moderate to severe stenosis of the proximal renal arteries bilaterally, more prominent on the left. 3. Bulky calcified plaque in the common iliac arteries bilaterally with moderate focal stenosis distally on the right and long segment mild to moderate stenosis on the left. 4. Right is effaced nearly entirely stented with diffuse long segment moderate stenosis of the distal right SFA stent. 5. Multiple stents in the left SFA with intervening [place] SFA moderate severe stenoses as well as critical stenosis/occlusion of the proximal distal stent. 6. Heavily calcified popliteal arteries bilaterally with diffusely calcified runoff vessels significantly limiting evaluation for patency. Two-vessel runoff to the feet. 7. Trace bilateral pleural effusions. 8. Additional ancillary findings, as documented in the radiology report - Consult to Vascular surgery, appreciate input. Per Vascular surgery: The patient clinical presentation with a combined etiology of critical limb ischemia with tissue loss and chronic venous insufficiency. CT angiography reviewed: There is significant occlusive disease bilaterally worse on the left than the right. CATHI 10/17/18: 1. CATHI on the right 0.942. CATHI on the left 0.77.3. Significant peripheral disease by CTA 10/15/2018 scheduled for diagnostic angiography of the bilateral lower extremity tomorrow with possible intervention of the LLE. Plan to revascularize the right lower extremity based on the CATHI and the angiogram findings in the next 1-2 days. - LLE revascularization with Dr. Diaz (10/18/18) 1. Ultrasound-guided access of the right common femoral artery 2. AIF angiogram 3. Left lower extremity third order angiogram 4. Right lower extremity second order angiogram 5. Balloon angioplasty of the left superficial femoral artery 6. Balloon angioplasty of the left popliteal artery 7. Radiological supervision interpretation 8. Conscious sedation - Pt underwent RLE revascularization 10/19/18 - Pt to undergo right foot debridement and bone biopsy with Dr. Natarajan 10/21/18 - supportive care CHF/Cardiomyopathy with EF 20-25% - Outpt 2D echo (09/27/18): - Mild LVH, estimated EF 20-25% - LA is moderately dilated. RA is mildly dilated - Mildly thickened mitral valve leaflets. Calcifications of both mitral valve leaflets with mild mitral regurg - Aortic valve sclerosis, trace aortic valve regurgitation - Mild to moderate tricuspid valve regurg - Estimated PA pressure 52.6mmHg - Pt continued on Lasix 40mg daily, losartan 100mg daily A. fib - Pt is on Coumadin 5mg --[place], 2.5 Mo--Fr- - INR 1.9 (10/15/18) --> 1.6 (10/16/18) --> 2.1 (10/17/18) - vit K 5 mg PO x 1 today - Repeat INR in AM CKD, stage III - Labs are stable, Cr typically around 0.8 per outpt records Diabetes mellitus - Pt is on Novolin R 30 units daily at home - Pt is currently on NovoLog SSI - Accu checks LUE edema - LUE edematous with moderate amount of ecchymosis - STAT US to R/o DVT - apply ice and elevate - Will cancel DC and monitor overnight Progress Note: Quality VTE Deep Vein Thrombosis/Pulmonary Embolism Present on Admission: No
--- NOTE | 2018-10-22 17:14 | US ---
EXAM DATE: 10/22/2018 5:07 PM EST AGE/SEX: 78 years / Male INDICATIONS: Left arm swelling. CLINICAL DATA: This is the patient's initial encounter. Patient reports that signs and symptoms have been present for 1 day and indicates a pain score of 0/10. MEDICAL/SURGICAL HISTORY: Congestive heart failure. Hypertension. Hypercholesterolemia. Depr ession. Diabetes. Neuropathy. None. COMPARISON: No prior exams available for comparison. FINDINGS: The left jugular and subclavian are incompletely compressible characteristic of mural thro mbosis. Doppler flow is identified through the lumen of both vessels, however characteristic of nonoc clusive thrombus. Deep venous system is otherwise widely patent in the left upper extremity. Other: None CONCLUSION: 1. Nonocclusive thrombus in the left jugular and left subclavian veins. 2. Remaining portions of the deep venous system of the left upper extremity are patent. Electronically signed by: Jon Gómez MD Board Certified Radiologist 10/22/2018 5:13 PM EST
[2018-10-22] MEDS: Vancomycin Inj 1,500 MG in Sodium Chlor 0.9% Inj 500 ML IV.SIG SCH (21:24)
[2018-10-23 07:11] LABS: INR 2.5 Ratio; Prothrombin Time 25.4 sec (9.8-11.6)
[2018-10-23] MEDS: Insulin NovoLOG Aspart Correctional Sugar Inj SQ SCH (08:38)
[2018-10-23] MEDS: Gabapentin 300 MG Capsule PO SCH (08:38)
[2018-10-23] MEDS: Senna/Docusate Sodium 8.6/50 MG Tablet PO SCH (08:38)
[2018-10-23] MEDS: Collagenase Oint 30 GM Tube TOPICAL SCH (08:39)
[2018-10-23] MEDS: Furosemide 40 MG Tablet PO SCH (08:39)
[2018-10-23 10:23] VITALS: O2SAT 97
--- NOTE | 2018-10-23 10:27 | P.PNIM ---
Subjective Interval history: pt denies any pain in the left arm Physical Exam Vital signs: Last Vital Signs Temp 98.4 F 10/23/18 04:00 Pulse 89 10/23/18 04:00 Resp 19 10/23/18 04:00 BP 154/78 H 10/23/18 04:00 Pulse Ox 97 10/23/18 10:22 Narrative: General: NAD, AAOx3 SKIN: LUE edematous with moderate amount of ecchymosis Chest: CTA Cardiac: Regular Abd: +BS, soft ND/NT Ext: Right foot with previous amputation of all toes, chronic wound on the right lateral foot without any drainage or erythema. Left LE with previous 5th digit amputation, erythema of the foot and calf with chronic venous stasis skin changes, less swelling today Results Labs CBC & Chem 7: 10/20/18 09:28 10/23/18 06:30 Assessment and Plan Assessment (1) Chronic venous insufficiency: Code(s): I87.2 - Venous insufficiency (chronic) (peripheral) Status: Acute (2) Peripheral vascular disease of lower extremity: Code(s): I73.9 - Peripheral vascular disease, unspecified Status: Acute Plan Cellulitis on left foot Chronic wound on right foot PAD with hx of LE vascular stenting - Pt is a 78 y/o male with diabetes mellitus, atrial fibrillation, CAD, CKD, stage III, PAD, HTN, and CHF/cardiomyopathy with EF 20-25% and has a pacemaker. - Pt presented to the ED on 10/14/18 with complaints of pain and swelling to his left lower extremity. 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 Yesterday his noticed his left foot becoming increasingly more red and it started to ooze. 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 Pt has right toe chronic wound and has been followed by [facility] - Pt was admitted with severe cellulitis and started on Vancomycin - Vancomycin with pharmacy dosing - Appreciate Podiatry consult - No surgical intervention is planned at this time for the chronic right foot wound. - Xray of the left foot (10/14/18): - Amputation fifth toe and metatarsal as above. No bony destructive changes. No acute fracture - Pt continued on his Plavix - Aorta w/Runoff CTA (10/15/18) 1. 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 2. Moderate to severe stenosis of the proximal renal arteries bilaterally, more prominent on the left. 3. Bulky calcified plaque in the common iliac arteries bilaterally with moderate focal stenosis distally on the right and long segment mild to moderate stenosis on the left. 4. Right is effaced nearly entirely stented with diffuse long segment moderate stenosis of the distal right SFA stent. 5. Multiple stents in the left SFA with intervening [place] SFA moderate severe stenoses as well as critical stenosis/occlusion of the proximal distal stent. 6. Heavily calcified popliteal arteries bilaterally with diffusely calcified runoff vessels significantly limiting evaluation for patency. Two-vessel runoff to the feet. 7. Trace bilateral pleural effusions. 8. Additional ancillary findings, as documented in the radiology report - Consult to Vascular surgery, appreciate input. Per Vascular surgery: The patient clinical presentation with a combined etiology of critical limb ischemia with tissue loss and chronic venous insufficiency. CT angiography reviewed: There is significant occlusive disease bilaterally worse on the left than the right. CATHI 10/17/18: 1. CATHI on the right 0.942. CATHI on the left 0.77.3. Significant peripheral disease by CTA 10/15/2018 scheduled for diagnostic angiography of the bilateral lower extremity tomorrow with possible intervention of the LLE. Plan to revascularize the right lower extremity based on the CATHI and the angiogram findings in the next 1-2 days. - LLE revascularization with Dr. Diaz (10/18/18) 1. Ultrasound-guided access of the right common femoral artery 2. AIF angiogram 3. Left lower extremity third order angiogram 4. Right lower extremity second order angiogram 5. Balloon angioplasty of the left superficial femoral artery 6. Balloon angioplasty of the left popliteal artery 7. Radiological supervision interpretation 8. Conscious sedation - Pt underwent RLE revascularization 10/19/18 - Pt to undergo right foot debridement and bone biopsy with Dr. Natarajan 10/21/18 - supportive care addendum: foot cx growing gnr. dc clinda and levaquin added. spoke to Dr Zamarripa who will f/u the cx and wound at the [facility]. CHF/Cardiomyopathy with EF 20-25% - Outpt 2D echo (09/27/18): - Mild LVH, estimated EF 20-25% - LA is moderately dilated. RA is mildly dilated - Mildly thickened mitral valve leaflets. Calcifications of both mitral valve leaflets with mild mitral regurg - Aortic valve sclerosis, trace aortic valve regurgitation - Mild to moderate tricuspid valve regurg - Estimated PA pressure 52.6mmHg - Pt continued on Lasix 40mg daily, losartan 100mg daily A. fib - Pt is on Coumadin 5mg --[place], 2.5 Mo--- - INR 1.9 (10/15/18) --> 1.6 (10/16/18) --> 2.1 (10/17/18) - vit K 5 mg PO x 1 today - Repeat INR in AM CKD, stage III - Labs are stable, Cr typically around 0.8 per outpt records Diabetes mellitus - Pt is on Novolin R 30 units daily at home - Pt is currently on NovoLog SSI - Accu checks LUE edema - LUE edematous with moderate amount of ecchymosis - u/s left arm showed nonocclusive thrombus in IJ and SC. Doesn't appear to be related to the ecchymosis and swelling but he is now therapeutic on coumadin. ?trauma to the left arm perioperative while pt asleep. Pt has no pain in the arm. has nml range of motion and strong distal pulses. I spoke to sn[facility] doctor who will monitor the arm for any sign of worsening. elevate the arm for swelling. Progress Note: Quality VTE Deep Vein Thrombosis/Pulmonary Embolism Present on Admission: No
[2018-10-23 10:43] VITALS: BP 185/98; PULSE 94; RESP 20; TEMP 97.2
[2018-10-23 10:59] LABS: INR 2.5 Ratio; Prothrombin Time 24.9 sec (9.8-11.6)
[2018-10-23] MEDS ORDERED: Pharmacy Ordered Lab Info OTHER ONE (19:45)
== END 2018-10-23 10:52 | DRG 253 ==
LOC: NEPC 17:00 → NEDA 20:10 → N04 22:45
PROVIDERS: ADMIT Hospitalist; ATTEND Hospitalist
PROC: ANGIOLE (2018-10-18 08:00)
DX: T82.856A Stenosis of peripheral vascular stent, initial encounter; Y82.8 Other medical devices associated with adverse incidents; I42.9 Cardiomyopathy, unspecified; I25.10 Atherosclerotic heart disease of native coronary artery without angina pectoris; I99.8 Other disorder of circulatory system; Z79.4 Long term (current) use of insulin; Z79.02 Long term (current) use of antithrombotics/antiplatelets; N18.3 Chronic kidney disease, stage 3 (moderate); I70.201 Unspecified atherosclerosis of native arteries of extremities, right leg; I87.8 Other specified disorders of veins; Z89.422 Acquired absence of other left toe(s); L03.116 Cellulitis of left lower limb; I35.8 Other nonrheumatic aortic valve disorders; I34.0 Nonrheumatic mitral (valve) insufficiency; I50.9 Heart failure, unspecified; E78.00 Pure hypercholesterolemia, unspecified; E11.22 Type 2 diabetes mellitus with diabetic chronic kidney disease; R41.82 Altered mental status, unspecified; E78.5 Hyperlipidemia, unspecified; E11.40 Type 2 diabetes mellitus with diabetic neuropathy, unspecified; Z89.411 Acquired absence of right great toe; Z88.5 Allergy status to narcotic agent; E11.51 Type 2 diabetes mellitus with diabetic peripheral angiopathy without gangrene; Z95.0 Presence of cardiac pacemaker; I48.91 Unspecified atrial fibrillation; I13.0 Hypertensive heart and chronic kidney disease with heart failure and stage 1 through stage 4 chronic kidney disease, or unspecified chronic kidney disease; R01.1 Cardiac murmur, unspecified; I87.2 Venous insufficiency (chronic) (peripheral); Z79.01 Long term (current) use of anticoagulants; M79.89 Other specified soft tissue disorders; E11.621 Type 2 diabetes mellitus with foot ulcer; Z89.421 Acquired absence of other right toe(s); F05 Delirium due to known physiological condition; L97.519 Non-pressure chronic ulcer of other part of right foot with unspecified severity; L97.529 Non-pressure chronic ulcer of other part of left foot with unspecified severity; I07.1 Rheumatic tricuspid insufficiency; Z79.899 Other long term (current) drug therapy
CPT/HCPCS: 36430; 36600; 37224; 70450; 71010; 71045; 73620; 73630; 75625; 75635; 75710; 75716; 80048; 80053; 80202; 81001; 82140; 82565; 82607; 82746; 82805; 82948; 82962; 83605; 83735; 84443; 85002; 85025; 85610; 86592; 86927; 87015; 87040; 87070; 87077; 87102; 87116; 87186; 87205; 87206; 88304; 88307; 88311; 90765; 93005; 93922; 93971; 96365; 97162; 99152; 99153; 99285; C1725; C1751; C1760; C1769; C1893; C2623; C9503; G0269; J0131; J0360; J1644; J1815; J2001; J2250; J3010; J3370; J7030; J7040; J7050; P9017; Q9967

== ENCOUNTER 2018-11-28 17:42 | Inpatient (IN) ==
--- NOTE | 2018-11-28 20:28 | ED ---
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 This altered mental status has actually been on and off since September and before he was hospitalized in October. said he just mumbles and does not make sense. This episode started yesterday. Pt had elevated INR of 8 Monday and has been holding coumadin. Pt has been having increased urination. Denies any fever, chest pain, sob, n/v, abdominal pain, focal weakness or numbness. Related Data Home Medications Medication Instructions Recorded Confirmed clopidogrel [Plavix] 75 mg PO DAILY 10/14/18 11/28/18 duloxetine 20 mg PO DAILY 10/14/18 11/28/18 gabapentin 600 mg PO TID 10/14/18 11/28/18 losartan 100 mg PO DAILY 10/14/18 11/28/18 simvastatin 20 mg PO QPM 10/14/18 11/28/18 warfarin 4.5 mg PO DAILY 10/14/18 11/28/18 Previous Rx's Medication Instructions Recorded carvedilol [Coreg] 6.25 mg PO BID #60 tab 11/07/18 furosemide 40 mg PO BID@0900,1800 #60 tab 11/07/18 pantoprazole 40 mg PO DAILY #30 tab 11/07/18 tramadol [Ultram] 50 mg PO Q6H PRN #10 tab 11/07/18 Allergies Allergy/AdvReac Type Severity Reaction Status Date / Time amitriptyline Allergy Severe Bleeding Verified 10/28/18 07:18 codeine Allergy Mild NAUSEA Verified 10/28/18 07:18 VOMITING gabapentin Allergy Unknown TOO MUCH Verified 10/28/18 07:18 CONFUSION hydromorphone AdvReac Severe Hallucinati Verified 10/28/18 07:18 ons;Confusi on *MDRO Multi-Drug Resistant Allergy Unknown Congestion Uncoded 10/14/18 18:15 Organism Review of Systems ROS: all other systems reviewed are negative [facility] Family History Family History Other Diabetes Hypertension Social History Social History Substance History: No History of Abuse Second Hand Smoke Exposure: No Smoking Status: Never smoker How Often Do You Have a Drink Containing Alcohol: Monthly or less Immunization History Tetanus Immunization: <5 Years Exam Narrative Exam Narrative: GENERAL: 78yo M not in distress. SKIN: Focused skin assessment warm/dry. HEAD: Atraumatic. Normocephalic. EYES: Pupils equal and round. No scleral icterus. No injection or drainage. ENT: No nasal bleeding or discharge. Mucous membranes pink and moist. NECK: Trachea midline. No JVD. CARDIOVASCULAR: Regular rate and rhythm. No murmur appreciated. RESPIRATORY: No accessory muscle use. Clear to auscultation. Breath sounds equal bilaterally. GASTROINTESTINAL: Abdomen soft, non-tender, nondistended. MUSCULOSKELETAL: No obvious deformities. No clubbing. No cyanosis. No edema. NEUROLOGICAL: AAOx3. No obvious cranial nerve deficits. Motor grossly within normal limits in all extremities. Sensation intact. Normal speech. PSYCHIATRIC: Appropriate mood and affect; insight and judgment normal. Course Initial Documented Vital Signs Temperature 97.2 F L 11/28/18 17:46 Pulse Rate 80 11/28/18 17:46 Respiratory Rate 20 11/28/18 17:46 Blood Pressure 106/53 L 11/28/18 17:46 Pulse Oximetry 95 11/28/18 17:46 Last Documented Vital Signs Temperature 97.3 F L 11/29/18 12:00 Pulse Rate 63 11/29/18 12:00 Respiratory Rate 18 11/29/18 12:00 Blood Pressure 89/46 L 11/29/18 12:00 Pulse Oximetry 96 11/29/18 12:00 Medical Decision Making [facility] Narrative Medical decision making narrative: 78yo M was brought in by for AMS. Pt has been having intermittent AMS since September but had supratherapeutic INR of 8 on Monday so will obtain CT brain to r/o spontaneous ICH. Denies any trauma. Will obtain labs and UA. He is AAOx 3 now. Seen at [facility] and will transfer to medical bed. @0945 Reassessed patient with present. She states that at this time, he does not appear altered. I evaluated patient chronic diabetic wounds which appear macerated, especially the right foot. There is a suture in place that was removed by me. The feet otherwise appear slightly edematous but not overtly cellulitic. and patient deny fever, chills, chest pain, shortness of breath , nausea, vomiting, abdominal pain. She states he has had 3 bowel movements today but she attributed it to his diet last night which consisted of greens which he normally does not eat. Vitals signs stable. Labs are notable for WBCs 23.7, H&H 10.5/32.2, neutrophil percent 89.6, INR 8.9 (note that his last coumadin dose was Monday), sodium 139, potassium 4.5, BUN/ creatinine 66/2.15 Initiate azithromycin and Rocephin for likely left lower lobe pneumonia, delirium, leukocytosis I spoke with Dr. Kinney who agreed to the admission. She requested that we contact her if the lactic is greater than 4. Medical Screen Exam Complete: Yes Emergency Medical Condition: Yes Differential Diagnosis Differential Diagnosis: Supratherapeutic INR vs. ICH vs. UTI vs. electrolyte abnormality Medical Records Medical records reviewed: Yes I reviewed the patient's medical records. Patient was seen in the ED 10/28/18 for hypoxia, AMS, lethargy and discharged . Lab Data Result diagrams: 11/29/18 04:50 11/29/18 04:50 Lab Results 11/28/18 11/28/18 11/28/18 Range/Units 20:15 20:48 20:48 WBC 23.7 H (4.0-11.0) th/mm3 RBC 3.82 L (4.50-5.90) mil/mm3 Hgb 10.5 L (13.0-17.0) gm/dL Hct 32.2 L (39.0-51.0) % MCV 84.4 (80.0-100.0) fL MCH 27.6 (27.0-34.0) pg MCHC 32.7 (32.0-36.0) % RDW 18.3 H (11.6-17.2) % Plt Count 246 (150-450) th/mm3 MPV 9.3 (7.0-11.0) fL Neut % (Auto) 89.6 H (16.0-70.0) % Lymph % (Auto) 1.9 L (9.0-44.0) % Floyd % (Auto) 8.4 H (0.0-8.0) % Eos % (Auto) 0.0 (0.0-4.0) % Baso % (Auto) 0.1 (0.0-2.0) % Neut # (Auto) 21.2 H (1.8-7.7) th/mm3 Lymph # (Auto) 0.5 L (1.0-4.8) th/mm3 Floyd # (Auto) 2.0 H (0.0-0.9) th/mm3 Eos # (Auto) 0.0 (0.0-0.4) th/mm3 Baso # (Auto) 0.0 (0.0-0.2) th/mm3 WBC Differential . Differential Comment Auto diff final PT (9.8-11.6) sec INR Ratio APTT (23.4-31.7) sec Sodium 139 (136-145) meq/L Potassium 4.5 (3.5-5.1) meq/L Chloride 102 (98-107) meq/L Carbon Dioxide 25.8 (21.0-32.0) meq/L Anion Gap 11 (5-15) meq/L BUN 66 H (7-18) mg/dL Creatinine 2.15 H (0.60-1.30) mg/dL Estimated GFR 30 L (>89) mL/min POC Glucose 167 H (68-110) mg/dl Random Glucose 187 H (74-106) mg/dL Lactic Acid (0.4-2.0) mmol/L Calcium 8.2 L (8.5-10.1) mg/dL Calcium Adj for Albumin Total Bilirubin 1.4 H (0.2-1.0) mg/dL AST 27 (15-37) U/L ALT 13 (12-78) U/L Alkaline Phosphatase 183 H (45-117) U/L Ammonia (11-32) mcmol/L Total Protein 7.7 (6.4-8.2) g/dL Albumin 2.3 L (3.4-5.0) g/dL Urine Color (Yellw/Straw) Urine Clarity (Clear) Urine pH (5.0-8.5) Ur Specific [place] (1.002-1.035) Urine Protein (Neg-Trace) mg/dL Urine Glucose (UA) (Negative) mg/dL Urine Ketones (Negative) mg/dL Urine Occult Blood (Negative) Urine Nitrate (Negative) Urine Bilirubin (Negative) Urine Urobilinogen (Less than 2) mg/dL Ur Leukocyte Esterase (Negative) Urine WBC (0-5) /hpf Ur Squamous Epith Cells (0-5) /hpf Hyaline Casts (0-3) /lpf Micro UA Comment Ur Microscopic Review Urine Culture Comments 11/28/18 11/28/18 11/28/18 Range/Units 20:48 20:48 21:30 WBC (4.0-11.0) th/mm3 RBC (4.50-5.90) mil/mm3 Hgb (13.0-17.0) gm/dL Hct (39.0-51.0) % MCV (80.0-100.0) fL MCH (27.0-34.0) pg MCHC (32.0-36.0) % RDW (11.6-17.2) % Plt Count (150-450) th/mm3 MPV (7.0-11.0) fL Neut % (Auto) (16.0-70.0) % Lymph % (Auto) (9.0-44.0) % Floyd % (Auto) (0.0-8.0) % Eos % (Auto) (0.0-4.0) % Baso % (Auto) (0.0-2.0) % Neut # (Auto) (1.8-7.7) th/mm3 Lymph # (Auto) (1.0-4.8) th/mm3 Floyd # (Auto) (0.0-0.9) th/mm3 Eos # (Auto) (0.0-0.4) th/mm3 Baso # (Auto) (0.0-0.2) th/mm3 WBC Differential Differential Comment PT 88.6 H D (9.8-11.6) sec INR 8.9 H* Ratio APTT 58.4 H (23.4-31.7) sec Sodium Cancelled (136-145) meq/L Potassium Cancelled (3.5-5.1) meq/L Chloride Cancelled (98-107) meq/L Carbon Dioxide Cancelled (21.0-32.0) meq/L Anion Gap Cancelled (5-15) meq/L BUN Cancelled (7-18) mg/dL Creatinine Cancelled (0.60-1.30) mg/dL Estimated GFR Cancelled (>89) mL/min POC Glucose (68-110) mg/dl Random Glucose Cancelled (74-106) mg/dL Lactic Acid (0.4-2.0) mmol/L Calcium Cancelled (8.5-10.1) mg/dL Calcium Adj for Albumin Cancelled Total Bilirubin Cancelled (0.2-1.0) mg/dL AST Cancelled (15-37) U/L ALT Cancelled (12-78) U/L Alkaline Phosphatase Cancelled (45-117) U/L Ammonia 21 (11-32) mcmol/L Total Protein Cancelled (6.4-8.2) g/dL Albumin Cancelled (3.4-5.0) g/dL Urine Color (Yellw/Straw) Urine Clarity (Clear) Urine pH (5.0-8.5) Ur Specific [place] (1.002-1.035) Urine Protein (Neg-Trace) mg/dL Urine Glucose (UA) (Negative) mg/dL Urine Ketones (Negative) mg/dL Urine Occult Blood (Negative) Urine Nitrate (Negative) Urine Bilirubin (Negative) Urine Urobilinogen (Less than 2) mg/dL Ur Leukocyte Esterase (Negative) Urine WBC (0-5) /hpf Ur Squamous Epith Cells (0-5) /hpf Hyaline Casts (0-3) /lpf Micro UA Comment Ur Microscopic Review Urine Culture Comments 11/28/18 11/28/18 11/29/18 Range/Units 21:45 22:30 03:45 WBC (4.0-11.0) th/mm3 RBC (4.50-5.90) mil/mm3 Hgb (13.0-17.0) gm/dL Hct (39.0-51.0) % MCV (80.0-100.0) fL MCH (27.0-34.0) pg MCHC (32.0-36.0) % RDW (11.6-17.2) % Plt Count (150-450) th/mm3 MPV (7.0-11.0) fL Neut % (Auto) (16.0-70.0) % Lymph % (Auto) (9.0-44.0) % Floyd % (Auto) (0.0-8.0) % Eos % (Auto) (0.0-4.0) % Baso % (Auto) (0.0-2.0) % Neut # (Auto) (1.8-7.7) th/mm3 Lymph # (Auto) (1.0-4.8) th/mm3 Floyd # (Auto) (0.0-0.9) th/mm3 Eos # (Auto) (0.0-0.4) th/mm3 Baso # (Auto) (0.0-0.2) th/mm3 WBC Differential Differential Comment PT (9.8-11.6) sec INR Ratio APTT (23.4-31.7) sec Sodium (136-145) meq/L Potassium (3.5-5.1) meq/L Chloride (98-107) meq/L Carbon Dioxide (21.0-32.0) meq/L Anion Gap (5-15) meq/L BUN (7-18) mg/dL Creatinine (0.60-1.30) mg/dL Estimated GFR (>89) mL/min POC Glucose 228 H (68-110) mg/dl Random Glucose (74-106) mg/dL Lactic Acid 1.9 (0.4-2.0) mmol/L Calcium (8.5-10.1) mg/dL Calcium Adj for Albumin Total Bilirubin (0.2-1.0) mg/dL AST (15-37) U/L ALT (12-78) U/L Alkaline Phosphatase (45-117) U/L Ammonia (11-32) mcmol/L Total Protein (6.4-8.2) g/dL Albumin (3.4-5.0) g/dL Urine Color Karyn (Yellw/Straw) Urine Clarity Clear (Clear) Urine pH 5.0 (5.0-8.5) Ur Specific [place] 1.014 (1.002-1.035) Urine Protein Negative (Neg-Trace) mg/dL Urine Glucose (UA) Negative (Negative) mg/dL Urine Ketones Negative (Negative) mg/dL Urine Occult Blood Negative (Negative) Urine Nitrate Negative (Negative) Urine Bilirubin Negative (Negative) Urine Urobilinogen 0.2 (Less than 2) mg/dL Ur Leukocyte Esterase Negative (Negative) Urine WBC 1 (0-5) /hpf Ur Squamous Epith Cells <1 (0-5) /hpf Hyaline Casts 3 (0-3) /lpf Micro UA Comment Culture not ind Ur Microscopic Review Not Reportable Urine Culture Comments Culture not ind 11/29/18 11/29/18 11/29/18 Range/Units 04:50 04:50 06:23 WBC 16.9 H (4.0-11.0) th/mm3 RBC 3.17 L (4.50-5.90) mil/mm3 Hgb 8.9 L (13.0-17.0) gm/dL Hct 27.0 L (39.0-51.0) % MCV 85.1 (80.0-100.0) fL MCH 27.9 (27.0-34.0) pg MCHC 32.8 (32.0-36.0) % RDW 18.3 H (11.6-17.2) % Plt Count 205 (150-450) th/mm3 MPV 9.3 (7.0-11.0) fL Neut % (Auto) 89.2 H (16.0-70.0) % Lymph % (Auto) 2.7 L (9.0-44.0) % Floyd % (Auto) 8.0 (0.0-8.0) % Eos % (Auto) 0.0 (0.0-4.0) % Baso % (Auto) 0.1 (0.0-2.0) % Neut # (Auto) 15.1 H (1.8-7.7) th/mm3 Lymph # (Auto) 0.5 L (1.0-4.8) th/mm3 Floyd # (Auto) 1.4 H (0.0-0.9) th/mm3 Eos # (Auto) 0.0 (0.0-0.4) th/mm3 Baso # (Auto) 0.0 (0.0-0.2) th/mm3 WBC Differential . Differential Comment Auto diff final PT 103.7 H D (9.8-11.6) sec INR 10.4 H* Ratio APTT (23.4-31.7) sec Sodium 141 (136-145) meq/L Potassium 4.3 (3.5-5.1) meq/L Chloride 104 (98-107) meq/L Carbon Dioxide 24.5 (21.0-32.0) meq/L Anion Gap 13 (5-15) meq/L BUN 67 H (7-18) mg/dL Creatinine 2.41 H (0.60-1.30) mg/dL Estimated GFR 26 L (>89) mL/min POC Glucose (68-110) mg/dl Random Glucose 212 H (74-106) mg/dL Lactic Acid (0.4-2.0) mmol/L Calcium 7.5 L (8.5-10.1) mg/dL Calcium Adj for Albumin Total Bilirubin 1.0 (0.2-1.0) mg/dL AST 21 (15-37) U/L ALT 12 (12-78) U/L Alkaline Phosphatase 143 H (45-117) U/L Ammonia (11-32) mcmol/L Total Protein 6.6 D (6.4-8.2) g/dL Albumin 1.9 L (3.4-5.0) g/dL Urine Color (Yellw/Straw) Urine Clarity (Clear) Urine pH (5.0-8.5) Ur Specific [place] (1.002-1.035) Urine Protein (Neg-Trace) mg/dL Urine Glucose (UA) (Negative) mg/dL Urine Ketones (Negative) mg/dL Urine Occult Blood (Negative) Urine Nitrate (Negative) Urine Bilirubin (Negative) Urine Urobilinogen (Less than 2) mg/dL Ur Leukocyte Esterase (Negative) Urine WBC (0-5) /hpf Ur Squamous Epith Cells (0-5) /hpf Hyaline Casts (0-3) /lpf Micro UA Comment Ur Microscopic Review Urine Culture Comments 11/29/18 11/29/18 Range/Units 09:33 12:54 WBC (4.0-11.0) th/mm3 RBC (4.50-5.90) mil/mm3 Hgb (13.0-17.0) gm/dL Hct (39.0-51.0) % MCV (80.0-100.0) fL MCH (27.0-34.0) pg MCHC (32.0-36.0) % RDW (11.6-17.2) % Plt Count (150-450) th/mm3 MPV (7.0-11.0) fL Neut % (Auto) (16.0-70.0) % Lymph % (Auto) (9.0-44.0) % Floyd % (Auto) (0.0-8.0) % Eos % (Auto) (0.0-4.0) % Baso % (Auto) (0.0-2.0) % Neut # (Auto) (1.8-7.7) th/mm3 Lymph # (Auto) (1.0-4.8) th/mm3 [place] # (Auto) (0.0-0.9) th/mm3 Eos # (Auto) (0.0-0.4) th/mm3 Baso # (Auto) (0.0-0.2) th/mm3 WBC Differential Differential Comment PT (9.8-11.6) sec INR Ratio APTT (23.4-31.7) sec Sodium (136-145) meq/L Potassium (3.5-5.1) meq/L Chloride (98-107) meq/L Carbon Dioxide (21.0-32.0) meq/L Anion Gap (5-15) meq/L BUN (7-18) mg/dL Creatinine (0.60-1.30) mg/dL Estimated GFR (>89) mL/min POC Glucose 194 H 143 H (68-110) mg/dl Random Glucose (74-106) mg/dL Lactic Acid (0.4-2.0) mmol/L Calcium (8.5-10.1) mg/dL Calcium Adj for Albumin Total Bilirubin (0.2-1.0) mg/dL AST (15-37) U/L ALT (12-78) U/L Alkaline Phosphatase (45-117) U/L Ammonia (11-32) mcmol/L Total Protein (6.4-8.2) g/dL Albumin (3.4-5.0) g/dL Urine Color (Yellw/Straw) Urine Clarity (Clear) Urine pH (5.0-8.5) Ur Specific [place] (1.002-1.035) Urine Protein (Neg-Trace) mg/dL Urine Glucose (UA) (Negative) mg/dL Urine Ketones (Negative) mg/dL Urine Occult Blood (Negative) Urine Nitrate (Negative) Urine Bilirubin (Negative) Urine Urobilinogen (Less than 2) mg/dL Ur Leukocyte Esterase (Negative) Urine WBC (0-5) /hpf Ur Squamous Epith Cells (0-5) /hpf Hyaline Casts (0-3) /lpf Micro UA Comment Ur Microscopic Review Urine Culture Comments Imaging Data Radiologist's impression: Head CT 11/28/18 20:28 CONCLUSION: 1. No acute intracranial abnormality. 2. Atrophy and chronic small vessel ischemic change. . Chest X-Ray 11/28/18 22:19 CONCLUSION: Cardiomegaly with pulmonary vascular engorgement. Patchy consolidation within the left base could relate to an infectious infiltrate or asymmetric pulmonary edema. Discharge Plan Discharge Disposition Patient Disposition: ED Admit(ED Internal Use Only) Discharge Condition Condition: Fair Discharge Order Discharge Orders: ED Use Only Admit Order (Routine); Ordered 11/28/18 Ordered By: Maki Hyde Discharge Details Diagnosis: Elevated INR, Delirium, Pneumonia, KIANA (acute kidney injury), Leukocytosis Physicians Team ED Provider: Kinza Pulliam ED Midlevel Provider: Maki Hyde Primary Care Provider: UNKNOWN, Attending Provider: Stalin Zamarripa Status ED Status: Left Department Discharge Information Discharge Date/Time: 11/29/18 01:29
[2018-11-28 21:06] LABS: Baso % (Auto) 0.1 % (0.0-2.0); Hematocrit 32.2 % (39.0-51.0); Hemoglobin 10.5 gm/dL (13.0-17.0); Lymph # (Auto) 0.5 th/mm3 (1.0-4.8); Lymph % (Auto) 1.9 % (9.0-44.0); Mean Corpuscular HGB Conc 32.7 % (32.0-36.0); Mean Corpuscular Hemoglobin 27.6 pg (27.0-34.0); Mean Corpuscular Volume 84.4 fL (80.0-100.0); Mean Platelet Volume 9.3 fL (7.0-11.0); Mono % (Auto) 8.4 % (0.0-8.0); Neut # (Auto) 21.2 th/mm3 (1.8-7.7); Neut % (Auto) 89.6 % (16.0-70.0); Platelet Count 246 th/mm3 (150-450); Red Blood Count 3.82 mil/mm3 (4.50-5.90); Red Cell Distribution Width 18.3 % (11.6-17.2); White Blood Count 23.7 th/mm3 (4.0-11.0)
[2018-11-28 21:09] LABS: Activated Partial Thrombo Time 58.4 sec (23.4-31.7); Prothrombin Time 88.6 sec (9.8-11.6)
[2018-11-28 21:25] LABS: Calcium 8.2 mg/dL (8.5-10.1); Carbon Dioxide 25.8 meq/L (21.0-32.0); INR 8.9 Ratio; Potassium 4.5 meq/L (3.5-5.1)
[2018-11-28 22:01] LABS: Albumin 2.3 g/dL (3.4-5.0)
[2018-11-28 22:02] LABS: Total Protein 7.7 g/dL (6.4-8.2)
--- NOTE | 2018-11-28 22:16 | CT ---
EXAM DATE: 11/28/2018 10:13 PM EST AGE/SEX: 78 years / Male INDICATIONS: Altered mental status. CLINICAL DATA: This is the patient's initial encounter. Patient reports that signs and symptoms have been present for 1 day and indicates a pain score of 0/10. MEDICAL/SURGICAL HISTORY: . Congestive heart failure. Chronic kidney disease. Hypertension. None. RADIATION DOSE: 56.35 CTDI (mGy) [place] [facility] [place]. . TECHNIQUE: CT of the head without contrast. Using automated exposure control and adjustment of the mA and/or kV according to patient size, radiation dose was kept as low as reasonably achievable to ob tain optimal diagnostic quality images. DICOM format image data is available electronically for revi ew and comparison. FINDINGS: Cerebrum: Atrophy. Periventricular low attenuation change involving both cerebral hemispheres. The v entricles are normal for age. No evidence of midline shift, mass lesion, hemorrhage or acute infarct ion. No extraaxial fluid collections are seen. Posterior Fossa: The cerebellum and brainstem are intact. The 4th ventricle is midline. The cerebe llopontine angle is unremarkable. Extracranial: The visualized portion of the orbits is intact. Skull: The calvaria is intact. No evidence of skull fracture. CONCLUSION: 1. No acute intracranial abnormality. 2. Atrophy and chronic small vessel ischemic change. . Electronically signed by: Colby Arrieta MD Board Certified Radiologist 11/28/2018 10:15 PM EST
[2018-11-28 22:21] LABS: Bilirubin,Urine Negative (Negative); Clarity,Urine Clear (Clear); Color,Urine Amber (Yellw/Straw); Glucose,Urine (UA) Negative (Negative); Hyaline Casts,Urine 3 /lpf (0-3); Nitrite,Urine Negative (Negative); Specific Gravity,Urine 1.014 (1.002-1.035); Squamous Epithelial Cell,Urine <1 /hpf (0-5)
[2018-11-28 22:22] LABS: Leukocyte Esterase,Urine Negative (Negative); Urobilinogen,Urine 0.2 mg/dL (Less than 2)
--- NOTE | 2018-11-28 22:52 | XR ---
EXAM DATE: 11/28/2018 10:44 PM EST AGE/SEX: 78 years / Male INDICATIONS: Short of breath. CLINICAL DATA: This is the patient's initial encounter. Patient reports that signs and symptoms have been present for 1 day and indicates a pain score of Nonresponsive. MEDICAL/SURGICAL HISTORY: . Congestive heart failure. Chronic kidney disease. Hypertension. CA BG. Pacemaker. COMPARISON: [facility] – [place], CHEST 2V AP&LAT, 11/04/2018. . FINDINGS: A single AP view of the chest demonstrates mild cardiomegaly. Pulmonary vascular engorgement noted. P atchy parenchymal consolidation within the left base. No effusions. Median sternotomy wires, coronary markers, and left-sided pacing device. Osteoarthritis of the shoulders and degenerative changes of t he spine. CONCLUSION: Cardiomegaly with pulmonary vascular engorgement. Patchy consolidation within the left base could rel ate to an infectious infiltrate or asymmetric pulmonary edema. Electronically signed by: Colby Arrieta MD Board Certified Radiologist 11/28/2018 10:50 PM EST
[2018-11-28] MEDS ORDERED: Azithromycin Inj 500 MG in Sodium Chlor 0.9% Inj 250 ML IV.SIG ONE (22:56)
[2018-11-28] MEDS: Piperacil/Tazo 3.375 GM Premix 3.375 GM/50 ML PIGGYBACK IV.SIG SCH (23:00)
[2018-11-28] MEDS ORDERED: Vancomycin Inj 1,000 MG in Sodium Chlor 0.9% Inj 250 ML IV.SIG ONE (23:06)
[2018-11-28] MEDS ORDERED: Dextrose 50% in Water 50 ML Vial IV.PUSH PRN (23:07)
[2018-11-28] MEDS ORDERED: Bisacodyl 10 MG Supp RECTAL PRN (23:07)
[2018-11-28] MEDS ORDERED: Acetaminophen 325 MG Tablet PO PRN (23:07)
[2018-11-29] MEDS: Sod Chloride 0.9% Inj 1,000 ML IV.CONT SCH ×2 (03:43→15:00)
[2018-11-29] MEDS: Insulin NovoLOG Aspart Correctional Sugar Inj SQ SCH ×5 (03:49→21:24)
[2018-11-29] MEDS: Piperacil/Tazo 3.375 GM Premix 3.375 GM/50 ML PIGGYBACK IV.SIG SCH ×4 (05:11→23:11)
[2018-11-29 06:07] LABS: Baso % (Auto) 0.1 % (0.0-2.0); Hemoglobin 8.9 gm/dL (13.0-17.0); Lymph # (Auto) 0.5 th/mm3 (1.0-4.8); Lymph % (Auto) 2.7 % (9.0-44.0); Mean Corpuscular HGB Conc 32.8 % (32.0-36.0); Mean Corpuscular Hemoglobin 27.9 pg (27.0-34.0); Mean Corpuscular Volume 85.1 fL (80.0-100.0); Mean Platelet Volume 9.3 fL (7.0-11.0); Mono # (Auto) 1.4 th/mm3 (0.0-0.9); Neut # (Auto) 15.1 th/mm3 (1.8-7.7); Neut % (Auto) 89.2 % (16.0-70.0); Platelet Count 205 th/mm3 (150-450); Red Blood Count 3.17 mil/mm3 (4.50-5.90); Red Cell Distribution Width 18.3 % (11.6-17.2); White Blood Count 16.9 th/mm3 (4.0-11.0)
[2018-11-29 06:29] LABS: Albumin 1.9 g/dL (3.4-5.0); Anion Gap 13 meq/L (5-15); Aspartate Aminotransferase 21 U/L (15-37); Blood Urea Nitrogen 67 mg/dL (7-18); Calcium 7.5 mg/dL (8.5-10.1); Carbon Dioxide 24.5 meq/L (21.0-32.0); Chloride 104 meq/L (98-107); Glomerular Filtration Rate 26 mL/min (>89); Glucose,Random 212 mg/dL (74-106); Potassium 4.3 meq/L (3.5-5.1); Sodium 141 meq/L (136-145)
[2018-11-29 06:32] LABS: Alanine Aminotransferase 12 U/L (12-78); Alkaline Phosphatase 143 U/L (45-117); Total Protein 6.6 g/dL (6.4-8.2)
[2018-11-29 07:00] LABS: Prothrombin Time 103.7 sec (9.8-11.6)
[2018-11-29 07:04] LABS: INR 10.4 Ratio
[2018-11-29] MEDS: Senna/Docusate Sodium 8.6/50 MG Tablet PO SCH ×2 (10:28→21:15)
--- NOTE | 2018-11-29 19:43 | P.HPIM ---
History of Present Illness Primary Care Physician: UNKNOWN History of Present Illness: Mr. Sun is a pleasant 78 y/o male with Cardiomyopathy/EF 20-25%, diabetes mellitus, A. fib, CAD, and PVD with recent [place] [facility] [place] cellulitis and chronic wound on the right foot from 10/14/18 to 10/23/18. During that admission the pt underwent LLE revascularization with Dr. Diaz on 10/18/18, RLE revascularization on 10/19/18 and right foot debridement and bone biopsy with Dr. Natarajan on 10/21/18. Postop wound culture grew Enterobacter Serratia and Pseudomonas. [facility] to continue with physical therapy and antibiotic with Levaquin on 10/23/18. Pt was brought back to the ED at [facility] [place] 10/28/18 in by EMS after patient was found with altered mental status and [facility] at the [facility]. Patient was found lethargic and with O2 saturation in the 70s and 80s. - Chest CTA (10/28/18) --> No evidence of PE. Large bilateral pleural effusions with overlying compressive airspace atelectasis/consolidation. Given the enlarged cardiac silhouette and perivascular ground glass opacities findings are consistent with congestive heart failure and pulmonary edema. Pt treated for CHF and made a gradual improvement. - Pt discharged back to SNF on lasix 40mg PO BID - Pt placed on coumadin for DVT/afib - previous US left arm showed nonocclusive thrombus in IJ and SC. - Pt developed left heel injury during October admission. Pt was seen by Podiatry and placed on santyl - Pt's October 2018 hospitalization was also complicated by constipation. Pt brought back to the [place] ER 11/28/18 d/t AMS and elevated creatinine. Pt admitted to [facility] for further evaluation and treatment. Past Medical Hx: Cardiomyopathy/EF 20-25% Diabetes mellitus A. fib CAD PVD Hip fracture, right HTN Non-healing ulcer of right foot CKD, stage 3 Past Surgical Hx: LLE revascularization with Dr. Diaz on 10/18/18 RLE revascularization on 10/19/18 Right foot debridement and bone biopsy with Dr. Natarajan on 10/21/18 Right hip ORIF in 2015 Previous LE vascular procedures with Minor Family Hx: Noncontributory Social Hx: lives with no tobacco no alcohol no illicit street drugs All: NKDA Diagnosis (1) Atrial fibrillation: (2) Ulcer of left heel: (3) Debility: (4) Elevated INR: (5) Delirium: (6) Right foot ulcer: (7) Diabetes: Inpatient Certification Inpatient Certification: I certify that the inpatient services were ordered in accordance with Medicare regulations governing the order. This includes certification that hospital inpatient services are reasonable and necessary and in the case of services not specified as inpatient-only under 42 CFR 419.22(n), that they are appropriately provided as inpatient services in accordance to with the 2-midnight benchmark under 43 CFR 412.3(e) Estimated Total Length of Stay (Days): 4 Plans for Post Hospital Care: Not yet determined Medications and Allergies Allergies Allergy/AdvReac Type Severity Reaction Status Date / Time amitriptyline Allergy Severe Bleeding Verified 10/28/18 07:18 codeine Allergy Mild NAUSEA Verified 10/28/18 07:18 VOMITING gabapentin Allergy Unknown TOO MUCH Verified 10/28/18 07:18 CONFUSION hydromorphone AdvReac Severe Hallucinati Verified 10/28/18 07:18 ons;Confusi on *MDRO Multi-Drug Resistant Allergy Unknown Congestion Uncoded 10/14/18 18:15 Organism Home Medications Medication Instructions Recorded Confirmed Type clopidogrel [Plavix] 75 mg PO DAILY 10/14/18 11/28/18 History duloxetine 20 mg PO DAILY 10/14/18 11/28/18 History gabapentin 600 mg PO TID 10/14/18 11/28/18 History losartan 100 mg PO DAILY 10/14/18 11/28/18 History simvastatin 20 mg PO QPM 10/14/18 11/28/18 History warfarin 4.5 mg PO DAILY 10/14/18 11/28/18 History Active Medications: Active Medications Acetaminophen (Tylenol) 650 mg PO Q4H PRN PRN Reason: Temp > 100.4 Al Hydroxide/Mg Hydroxide (Milk Of Magnesia Liq) 30 ml PO Q12H PRN PRN Reason: Mild Constipation Bisacodyl (Dulcolax Supp) 10 mg RECTAL DAILY PRN PRN Reason: SEVERE CONSITIPATION Dextrose (D50w Vial) 50 ml IV.PUSH UNSCH PRN PRN Reason: PER HYPOGLYCEMIA PROTOCOL Glucagon (Glucagon Inj) 1 mg OTHER PRN PRN PRN Reason: for Hypoglycemia Protocol Azithromycin 500 mg/ Sodium (Chloride) 250 mls @ 250 mls/hr IV.SIG Q24H PRANEETH Sodium Chloride (Ns Inj) 1,000 mls @ 100 mls/hr IV.CONT .Q10H [facility] Last Admin: 11/29/18 15:00 Dose: 100 mls/hr Piperacillin/Tazobactam/Dextrose (Zosyn 3.375 Gm Premix) 3.375 gm in 50 mls @ 100 mls/hr IV.SIG Q6H [facility] Last Admin: 11/29/18 18:47 Dose: 100 mls/hr Insulin Aspart (Novolog Insulin Correctional Sugar Inj) 0 unit SQ ACHS AND 3AM PRANEETH; Protocol Last Admin: 11/29/18 18:48 Dose: 1 unit Lactulose (Lactulose Liq) 30 ml PO DAILY PRN PRN Reason: SEVERE CONSITIPATION Ondansetron HCl (Zofran Inj) 4 mg IV.PUSH Q6H PRN PRN Reason: NAUSEA OR VOMITING Senna/Docusate Sodium (Clara-Colace) 1 tab PO BID [facility] Last Admin: 11/29/18 10:28 Dose: Not Given Sennosides (Senokot) 17.2 mg PO Q12H PRN PRN Reason: Moderate Constipation Sodium Chloride (Ns Flush) 2 ml IV.FLUSH BID [facility] Last Admin: 11/29/18 18:44 Dose: 2 ml Sodium Chloride (Ns Flush) 2 ml IV.FLUSH PRN PRN PRN Reason: FLUSH AFTER USING IV ACCESS Physical Exam Vital signs: Last Vital Signs Temp 98.2 F 11/29/18 16:00 Pulse 80 11/29/18 16:00 Resp 18 11/29/18 12:00 BP 105/59 L 11/29/18 18:00 Pulse Ox 97 11/29/18 16:00 Results Labs CBC & Chem 7: 11/30/18 05:52 11/30/18 05:52 Caprini VTE Risk Assessment Caprini VTE Risk Assessment: Moderate/High Risk (score >= 2) Caprini Risk Assessment Model: Point Value = 1 Point Value = 2 Point Value = 3 Point Value = 5 Age 41-60 Minor surgery BMI > 25 kg/m2 Swollen legs Varicose veins or History of unexplained or recurrent spontaneous Oral contraceptives or hormone replacement Sepsis (< 1 month) Serious lung disease, including pneumonia (< 1 month) Abnormal pulmonary function Acute myocardial infarction Congestive heart failure (< 1 month) History of inflammatory bowel disease Medical patient at bed rest Age 61-74 Arthroscopic surgery Major open surgery (> 45 min) Laparoscopic surgery (> 45 min) Malignancy Confined to bed (> 72 hours) Immobilizing plaster cast Central venous access Age >= 75 History of VTE Family history of VTE Factor V Leiden Prothrombin [id number] Lupus anticoagulant Anticardiolipin antibodies Elevated serum homocysteine Heparin-induced thrombocytopenia Other congenital or acquired thrombophilia Stroke (< 1 month) Elective arthroplasty Hip, pelvis, or leg fracture Acute spinal cord injury (< 1 month) Prophylaxis Regimen: Total Risk Factor Score Risk Level Prophylaxis Regimen 0-1 Low Early ambulation 2 Moderate Order ONE of the following: *Sequential Compression Device (SCD) *Heparin 5000 units SQ BID 3-4 Higher Order ONE of the following medications: *Heparin 5000 units SQ TID *Enoxaparin/Lovenox 40 mg SQ daily (WT < 150 kg, CrCl > 30 mL/min) *Enoxaparin/Lovenox 30 mg SQ daily (WT < 150 kg, CrCl > 10-29 mL/min) *Enoxaparin/Lovenox 30 mg SQ BID (WT < 150 kg, CrCl > 30 mL/min) AND/OR *Sequential Compression Device (SCD) 5 or more Highest Order ONE of the following medications: *Heparin 5000 units SQ TID (Preferred with Epidurals) *Enoxaparin/Lovenox 40 mg SQ daily (WT < 150 kg, CrCl > 30 mL/min) *Enoxaparin/Lovenox 30 mg SQ daily (WT < 150 kg, CrCl > 10-29 mL/min) *Enoxaparin/Lovenox 30 mg SQ BID (WT < 150 kg, CrCl > 30 mL/min) AND *Sequential Compression Device (SCD) Assessment and Plan Assessment (1) Atrial fibrillation: Code(s): I48.91 - Unspecified atrial fibrillation Status: Acute (2) Ulcer of left heel: Code(s): L97.429 - Non-pressure chronic ulcer of left heel and midfoot with unspecified severity Status: Acute (3) Debility: Code(s): R53.81 - Other malaise Status: Acute (4) Elevated INR: Code(s): R79.1 - Abnormal coagulation profile Status: Acute (5) Delirium: Code(s): R41.0 - Disorientation, unspecified Status: Acute (6) Right foot ulcer: Code(s): L97.519 - Non-pressure chronic ulcer of other part of right foot with unspecified severity Status: Acute (7) Diabetes: Code(s): E11.9 - Type 2 diabetes mellitus without complications Status: Chronic Plan Mr. Sun is a pleasant 78 y/o male with Cardiomyopathy/EF 20-25%, diabetes mellitus, A. fib, CAD, and PVD with recent admission [place] [facility] [place] foot cellulitis and chronic wound on the right foot from 10/14/18 to 10/23/18. During that admission the pt underwent LLE revascularization with Dr. Diaz on 10/18/18 , RLE revascularization on 10/19/18 and right foot debridement and bone biopsy with Dr. Natarajan on 10/21/18. Postop wound culture grew Enterobacter Serratia and Pseudomonas. [facility] to continue with physical therapy and antibiotic with Levaquin on 10/23/18. Pt was brought back to the ED at [facility] on 10/28/18 in by EMS after patient was found with altered mental status and [facility]. Patient was found lethargic and with O2 saturation in the 70s and 80s. - Chest CTA (10/28/18) --> No evidence of PE. Large bilateral pleural effusions with overlying compressive airspace atelectasis/consolidation. Given the enlarged cardiac silhouette and perivascular ground glass opacities findings are consistent with congestive heart failure and pulmonary edema. Pt treated for CHF and made a gradual improvement. - Pt discharged back to SNF on lasix 40mg PO BID - Pt placed on coumadin for DVT/afib - previous US left arm showed nonocclusive thrombus in IJ and SC. - Pt developed left heel injury during October admission. Pt was seen by Podiatry and placed on santyl - Pt's October 2018 hospitalization was also complicated by constipation. Pt brought back to the [place] ER 11/28/18 d/t AMS and elevated creatinine. Pt admitted to [facility] for further evaluation and treatment. 1) AMS - Pt at approximate cognitive baseline at the time of my (11/30) visit - Pt sensorium tends to wax and waine - CT brain (11/30) 1. Stable bilateral cortical atrophy and chronic white matter changes. 2. Stable exam compared to the prior study. - worsening renal function - likely metabolic encephalopathy worsening pt's mental status and possible pneumonia - repeat labs in AM - supportive care DVT prophylaxis with SCDs - supportive care 2) Pneumonia - CXR (11/28) --> zosyn, azithromycin - Pt trending hypotensive - azithromycin and zosyn 2) A/CKD - observe - careful with fluids pt has h/o CHF, low EF and recent hospitalization with CHF exacerbation 3) heel wound and other areas of skin breakdown - request input from wound care - ABX as above 4) Cardiomyopathy with EF20-25% - hold lasix for now d/t bp 5) atrial fibrillation, chronic - hold BB d/t hypotension - hold coumadin f/t superthreapeutic INR 6) Suptratherapeutic INR - hold coumadin 7) DM2 - SSI 8) PVD - recent revascularization procedure in October with Dr. 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
[2018-11-29] MEDS: Azithromycin Inj 500 MG in Sodium Chlor 0.9% Inj 250 ML IV.SIG SCH (23:52)
[2018-11-30] MEDS: Sod Chloride 0.9% Inj 1,000 ML IV.CONT SCH ×2 (03:58→19:48)
[2018-11-30] MEDS: Insulin NovoLOG Aspart Correctional Sugar Inj SQ SCH ×5 (03:58→20:52)
[2018-11-30] MEDS: Piperacil/Tazo 3.375 GM Premix 3.375 GM/50 ML PIGGYBACK IV.SIG SCH ×4 (04:38→23:11)
[2018-11-30 06:44] LABS: Baso % (Auto) 0.1 % (0.0-2.0); Eos % (Auto) 0.1 % (0.0-4.0); Hematocrit 28.1 % (39.0-51.0); Hemoglobin 9.1 gm/dL (13.0-17.0); Lymph # (Auto) 0.4 th/mm3 (1.0-4.8); Lymph % (Auto) 2.8 % (9.0-44.0); Mean Corpuscular HGB Conc 32.4 % (32.0-36.0); Mean Corpuscular Hemoglobin 27.5 pg (27.0-34.0); Mean Corpuscular Volume 84.8 fL (80.0-100.0); Mean Platelet Volume 9.2 fL (7.0-11.0); Mono # (Auto) 0.9 th/mm3 (0.0-0.9); Mono % (Auto) 7.1 % (0.0-8.0); Neut # (Auto) 11.5 th/mm3 (1.8-7.7); Neut % (Auto) 89.9 % (16.0-70.0); Platelet Count 224 th/mm3 (150-450); Red Blood Count 3.32 mil/mm3 (4.50-5.90); Red Cell Distribution Width 18.3 % (11.6-17.2); White Blood Count 12.8 th/mm3 (4.0-11.0)
--- NOTE | 2018-11-30 06:52 | CT ---
EXAM DATE: 11/30/2018 6:47 AM EST AGE/SEX: 78 years / Male INDICATIONS: Altered mental status. CLINICAL DATA: This is the patient's initial encounter. Patient reports that signs and symptoms have been present for 1 day and indicates a pain score of 0/10. MEDICAL/SURGICAL HISTORY: Hypertension. Cardiovascular disease. Renal disease. Pacemaker. RADIATION DOSE: 56.35 CTDI (mGy) [place] [facility] [place]. . TECHNIQUE: CT of the head without contrast. Using automated exposure control and adjustment of the mA and/or kV according to patient size, radiation dose was kept as low as reasonably achievable to ob tain optimal diagnostic quality images. DICOM format image data is available electronically for revi ew and comparison. FINDINGS: Cerebrum: The ventricles are normal for age. Stable bilateral cortical atrophy and chronic white mat ter changes. No evidence of midline shift, mass lesion, hemorrhage or acute infarction. No extraaxia l fluid collections are seen. Posterior Fossa: The cerebellum and brainstem are intact. The 4th ventricle is midline. The cerebe llopontine angle is unremarkable. Extracranial: The visualized portion of the orbits is intact. Skull: The calvaria is intact. No evidence of skull fracture. No new or significant changes compared to the prior examination. CONCLUSION: 1. Stable bilateral cortical atrophy and chronic white matter changes. 2. Stable exam compared to the prior study. . Electronically signed by: Jed Simon MD Board Certified Radiologist 11/30/2018 6:50 AM EST
[2018-11-30 06:59] LABS: INR 14.3 Ratio
[2018-11-30 07:27] LABS: Calcium 7.2 mg/dL (8.5-10.1); Carbon Dioxide 26.1 meq/L (21.0-32.0); Potassium 4.9 meq/L (3.5-5.1)
[2018-11-30 07:42] LABS: Albumin 1.8 g/dL (3.4-5.0)
--- NOTE | 2018-11-30 08:39 | XR ---
EXAM DATE: 11/30/2018 8:36 AM EST AGE/SEX: 78 years / Male INDICATIONS: Distention. CLINICAL DATA: This is the patient's initial encounter. Patient reports that signs and symptoms have been present for 1 day and indicates a pain score of 0/10. MEDICAL/SURGICAL HISTORY: . Congestive heart failure. Chronic kidney disease. Hypertension. . CABG. Pacemaker. Right femur ORIF. [place] [facility] [place]. . FINDINGS: The bowel gas pattern is grossly within normal limits. There is no abnormal distention of the large or small bowel. There is some stool seen in the left colon. There are degenerative changes involving lumbar spine and pelvis. There is evidence of previous internal fixation involving the right femur. T here are atherosclerotic changes characteristic for peripheral vascular disease. CONCLUSION: Benign-appearing KUB. Electronically signed by: Jed Siomn MD Board Certified Radiologist 11/30/2018 8:38 AM EST
--- NOTE | 2018-11-30 08:40 | XR ---
EXAM DATE: 11/30/2018 8:34 AM EST AGE/SEX: 78 years / Male INDICATIONS: Shortness of breath. CLINICAL DATA: This is the patient's subsequent encounter. Patient reports that signs and symptoms h ave been present for 3 days and indicates a pain score of 0/10. MEDICAL/SURGICAL HISTORY: . Congestive heart failure. Chronic kidney disease. Hypertension. . CABG. Pacemaker. COMPARISON: [facility], CHEST 1V SINGLE AP, 11/28/2018. . FINDINGS: Compared to the prior study there appears to be increasing pulmonary edema with increasing interstiti al infiltrates bilaterally. No significant pleural effusions are seen. The heart size is stable. Ther e is a pacemaker overlying the left chest. There is no evidence of pneumothorax. The bony structures are stable. CONCLUSION: Increasing pulmonary edema compared to the prior study. Electronically signed by: Jed Simon MD Board Certified Radiologist 11/30/2018 8:39 AM EST
[2018-11-30] MEDS: Senna/Docusate Sodium 8.6/50 MG Tablet PO SCH ×2 (11:50→20:45)
--- NOTE | 2018-11-30 12:13 | P.PNIM ---
Subjective Interval history: No new complaints. Pt eating comfortably. Physical Exam Vital signs: Last Vital Signs Temp 97.3 F L 11/30/18 08:00 Pulse 77 11/30/18 08:00 Resp 18 11/30/18 08:00 BP 98/57 L 11/30/18 08:00 Pulse Ox 96 11/30/18 08:00 Results Labs CBC & Chem 7: 11/30/18 05:52 11/30/18 05:52 Assessment and Plan Assessment (1) Atrial fibrillation: Code(s): I48.91 - Unspecified atrial fibrillation Status: Acute (2) Ulcer of left heel: Code(s): L97.429 - Non-pressure chronic ulcer of left heel and midfoot with unspecified severity Status: Acute (3) Debility: Code(s): R53.81 - Other malaise Status: Acute (4) Elevated INR: Code(s): R79.1 - Abnormal coagulation profile Status: Acute (5) Delirium: Code(s): R41.0 - Disorientation, unspecified Status: Acute (6) Right foot ulcer: Code(s): L97.519 - Non-pressure chronic ulcer of other part of right foot with unspecified severity Status: Acute (7) Diabetes: Code(s): E11.9 - Type 2 diabetes mellitus without complications Status: Chronic Plan Mr. Sun is a pleasant 78 y/o male with Cardiomyopathy/EF 20-25%, diabetes mellitus, A. fib, CAD, and PVD with recent admission to [facility] for left foot cellulitis and chronic wound on the right foot from 10/14/18 to 10/23/18. During that admission the pt underwent LLE revascularization with Dr. Diaz on 10/18/18 , RLE revascularization on 10/19/18 and right foot debridement and bone biopsy with Dr. Natarajan on 10/21/18. Postop wound culture grew Enterobacter Serratia and Pseudomonas. [facility] to continue with physical therapy and antibiotic with Levaquin on 10/23/18. Pt was brought back to the ED at [facility] on 10/28/18 in by EMS after patient was found with altered mental status and [facility]. Patient was found lethargic and with O2 saturation in the 70s and 80s. - Chest CTA (10/28/18) --> No evidence of PE. Large bilateral pleural effusions with overlying compressive airspace atelectasis/consolidation. Given the enlarged cardiac silhouette and perivascular ground glass opacities findings are consistent with congestive heart failure and pulmonary edema. Pt treated for CHF and made a gradual improvement. - Pt discharged back to SNF on lasix 40mg PO BID - Pt placed on coumadin for DVT/afib - previous US left arm showed nonocclusive thrombus in IJ and SC. - Pt developed left heel injury during October admission. Pt was seen by Podiatry and placed on santyl - Pt's October 2018 hospitalization was also complicated by constipation. Pt brought back to the [place] ER 11/28/18 d/t AMS and elevated creatinine. Pt admitted to [place] for further evaluation and treatment. 1) AMS - Pt at approximate cognitive baseline at the time of my (11/30) visit - Pt sensorium tends to wax and waine - CT brain (11/30) 1. Stable bilateral cortical atrophy and chronic white matter changes. 2. Stable exam compared to the prior study. - worsening renal function - likely metabolic encephalopathy worsening pt's mental status and possible pneumonia - repeat labs in AM - supportive care DVT prophylaxis with SCDs - supportive care 2) Pneumonia - CXR (11/28) --> zosyn, azithromycin - Pt trending hypotensive - azithromycin and zosyn 2) A/CKD - observe - careful with fluids pt has h/o CHF, low EF and recent hospitalization with CHF exacerbation 3) heel wound and other areas of skin breakdown - request input from wound care - ABX as above 4) Cardiomyopathy with EF20-25% - hold lasix for now d/t bp 5) atrial fibrillation, chronic - hold BB d/t hypotension - hold coumadin f/t superthreapeutic INR 6) Suptratherapeutic INR - hold coumadin 7) DM2 - SSI 8) PVD - recent revascularization procedure in October with Dr. 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
[2018-11-30] MEDS ORDERED: Phytonadione 5 MG/SWFI 5 ML Oral Syringe PO ONE (14:00)
--- NOTE | 2018-11-30 17:56 | P.PNWCN ---
Wound Care Nurse Consult Description: Received pressure ulcer consult from Doctor Zamarripa for buttock, heel and R foot wounds Communicated with: Spoke with RN jadon on [facility]/ oncology and Call placed to Doctor Zamarripa Recommendation: R plantar foot 1. Cleanse wound with normal saline or wound cleanser and pat dry. 2. Apply hydrogel pea sized amount to R foot wound 3.Cover wound with oil emulsion gauze 4. then cover with dry 4x4 gauze, rolled gauze and tape. 5. Secure dressing with stockinette 6. Change dressing daily. L heel and L lateral foot eschar 1. [place] with povidone -iodine BID and leave open to air. R side of coccyx 1. Cleanse buttock area with Remedy barrier wipes and pat dry 2. Apply Calazime skin protectant paste covering deep tissue injury on the R side of coccyx BID and leave open to air. Wound/Pressure Injury - Wound R side of coccyx Wound Staging: DTI Wound Assessment: Ongoing Wound Type: Pressure Injury Requested from Provider a Wound Care Consult: Yes Length (cm): 1.1 Width (cm): 0.9 Depth (cm): 0 (purple nonblanchable discoloration) Wound Bed Appearance: DTI presents as purple nonblanchable skin discoloration that is firm to touch Surrounding Tissue Appearance: [place] Surrounding Tissue Temperature: Warm Drainage Amount: None Drainage Odor: No Odor Dressing Status: Open to Air Cleansing Solution: Saline Topical: Calazime skin protectant paste Left Heel Wound Staging: Unstageable Wound Assessment: Ongoing Wound Type: Pressure Injury Requested from Provider a Wound Care Consult: Yes Length (cm): 3 Width (cm): 2 Depth (cm): 0 (eschar) Wound Bed Appearance: 100% dry black eschar Surrounding Tissue Temperature: Warm Drainage Amount: None Drainage Odor: No Odor Dressing Status: Open to Air Topical: Povidine-Iodine (Betadine) Left lateral foot ulcer Wound Assessment: Ongoing Requested from Provider a Wound Care Consult: Yes Length (cm): 1 Width (cm): 1 Depth (cm): 0 (eschar) Wound Bed Appearance: 100% dry black eschar Surrounding Tissue Appearance: [place] Surrounding Tissue Temperature: Warm Drainage Amount: None Drainage Odor: No Odor Dressing Status: Open to Air Topical: Povidine-Iodine (Betadine) Right plantar foot ulcer Wound Assessment: Ongoing Requested from Provider a Wound Care Consult: Yes Length (cm): 2.8 Width (cm): 3.2 Depth (cm): 0.2 Wound Bed Appearance: 100% red, dry non granulation tissue. Surrounding Tissue Appearance: [place] Surrounding Tissue Temperature: Warm Drainage Description: Sanguinous Drainage Amount: Scant Drainage Odor: No Odor Dressing Status: Changed Cleansing Solution: Hydrogel Primary Dressing: oil emulsion gauze Cover Dressing: gauze pads, rolled gauze,ans stockinette Wound Dressing Change Date: 11/30/18 Wound Margin Description: wound margins are well defined. - Additional Information Patient seen on [facility]/ oncology for evaluation of buttock, heel and R foot areas. Patient has wounds to R plantar foot, L heel, L lateral foot and R side of coccyx. Removed dressing to from R foot to reveal chronic diabetic foot ulcer to plantar surface of R foot. Patient has dressing changes from home health care nurses at home. Wound bed presents with 100% red, dry non granulation tissue.Wound was cleansed with normal saline and patted dry. Applied hydrogel to wound bed and covered with dry 4x4 gauze pad secured with rolled gauze and tape.l L heel wound and L lateral heel wounds presents with 100% black eschar. Wounds were left open to air and povidone -iodine was applied, patient is wearing a multipodus boot for pressure relief. Patient was then positioned off of bottom to R side to reveal non blanchable purple discoloration to R side of coccyx, indicating Deep tissue injury. Skin barrier film was applied over DTI and Calazime skin protectant paste was applied to gluteal cleft and coccyx areas and were left open to air.
[2018-11-30] MEDS ORDERED: Piperacil/Tazo 2.25 GM Premix 2.25 GM/50 ML PIGGYBACK IV.SIG SCH (18:00)
[2018-11-30] MEDS ORDERED: Gabapentin 300 MG Capsule PO SCH (23:00)
[2018-11-30] MEDS: Azithromycin Inj 500 MG in Sodium Chlor 0.9% Inj 250 ML IV.SIG SCH (23:56)
--- NOTE | 2018-12-01 01:46 | P.PNADD ---
Addendum to Inpatient Note Reason for Addendum: Additional Documentation Additional information: Patient found unresponsive by nurse and fran trejo called. Resident team responded and Dr. Eckert already at bedside running code. acls for PEA. Residents assisted with compressions. Code ran for appx 40mins. ROSC achieved and patient transferred to critical care unit ([facility]). Patient went into PEA again and fran trejo was called. Resident responded to code , Dr. Eckert at bedside leading code. Resident assisted with compressions. Code ran for appx 20mins. ROSC achieved.
[2018-12-01] MEDS ORDERED: Sodium Bicarbonate 8.4% Inj 50 MEQ/50 ML Syringe IV.PUSH ONE ×2 (02:35)
[2018-12-01] MEDS ORDERED: Calcium Chloride Inj 1 GM/10 ML Syringe IV.PUSH ONE ×2 (02:35)
--- NOTE | 2018-12-01 02:36 | P.PCN ---
Date of procedure: 12/01/18 Pre-op diagnosis: Cardiac arrest Post-op diagnosis: same Procedure: CPR for cardiac arrest x2 Patient sustained cardiac arrest x2. Initial CODE BLUE initiated at 1:18 AM 12/01/2018. CPR was initiated prior to my arrival. ACLS protocol was followed. Total 3 Amps of epinephrine, 2 Amps of bicarb, 1 g of calcium IV. Patient was intubated during CPR. Return of spontaneous circulation in 14 minutes. Following this patient was started on epinephrine infusion at 5 mcg/min and moved to the ICU Second CODE BLUE initiated at 1:53 AM 12/01/2018. Epinephrine gtt at 10 mcg/ min. ACLS protocol was followed again. Total of 4 Amps of epinephrine, 3 Amps of bicarb, 2 g of IV calcium given. Return of spontaneous circulation in 15 minutes. I placed a femoral arterial line. After the initial few minutes blood pressure started to deteriorate. Patient lost pulse again. Brief review of the chart showed patient had a EF 20-25% and severe . Patient never had neurological response even with return of spontaneous circulation. Given poor prognosis and approximately 30 minutes of CPR no further CPR was initiated. Patient at 2:36 AM on 12/01/18 Surgeon: Shazia Eckert Estimated blood loss (mL): 0 Pathology: none sent Condition: critical Disposition: ICU
--- NOTE | 2018-12-01 02:37 | P.PCN ---
Date of procedure: 12/01/18 Pre-op diagnosis: Cardiac arrest Post-op diagnosis: same Procedure: Endotracheal intubation PROCEDURE SUMMARY: I wore a surgical mask. The patient was placed on appropriate morning sniffing position. Rapid Sequence Intubation was conducted. The patient received no medication for intubation as the patient was unresponsive during cardiac arrest. Cricoid pressure was maintained from time induction agent was given to time of cuff balloon inflation. Using a direct laryngoscope # 4 blade grade 1 view was obtained and patient was intubated with a size 8.0 endotracheal tube with stylet on the first attempt. The stylet was removed and cuff balloon was inflated. Appropriate endotracheal tube position was confirmed by direct visualization of vocal cord passage, fogging of the tube, CO2 colometric indicator and symmetric breath sounds. The tube was secured at 24 cm at the lips. Anesthesia: local Surgeon: Shazia Eckert Estimated blood loss (mL): 0 Condition: critical Disposition: ICU
--- NOTE | 2018-12-01 02:42 | P.PCN ---
Date of procedure: 12/01/18 Pre-op diagnosis: PEA arrest, cardiogenic shock Post-op diagnosis: same Procedure: Ultrasound-guided right femoral arterial line I wore a surgical cap, mask with protective eyewear,and sterile gloves throughout the procedure. Right femoral region was prepped using chlorhexidine scrub and draped in sterile fashion. The introducer needle was inserted into the right femoral artery and arterial flash was obtained. A guidewire was advanced into the introducer needle, and needle was removed. A 16 cm 20 G arterial catheter was placed over the wire using Seldinger technique the wire was removed and the catheter was sutured in place at 16 cm. A sterile central line dressing was placed over the catheter at the insertion site. Anesthesia: local Surgeon: Shazia Eckert Estimated blood loss (mL): 1 Pathology: none sent Condition: critical Disposition: ICU
--- NOTE | 2018-12-01 11:39 | P.DS ---
DS: Providers Date of admission: 11/28/18 23:06 Primary care physician: UNKNOWN Brief History from admission: Mr. Sun is a pleasant 78 y/o male with Cardiomyopathy/EF 20-25%, diabetes mellitus, A. fib, CAD, and PVD with recent admission to [facility] for left foot cellulitis and chronic wound on the right foot from 10/14/18 to 10/23/18. During that admission the pt underwent LLE revascularization with Dr. Diaz on 10/18/18, RLE revascularization on 10/19/18 and right foot debridement and bone biopsy with Dr. Natarajan on 10/21/18. Postop wound culture grew Enterobacter Serratia and Pseudomonas. [facility] to continue with physical therapy and antibiotic with Levaquin on 10/23/18. Pt was brought back to the ED at [facility] on 10/28/18 in by EMS after patient was found with altered mental status and hypoxic at the [facility]. Patient was found lethargic and with O2 saturation in the 70s and 80s. - Chest CTA (10/28/18) --> No evidence of PE. Large bilateral pleural effusions with overlying compressive airspace atelectasis/consolidation. Given the enlarged cardiac silhouette and perivascular ground glass opacities findings are consistent with congestive heart failure and pulmonary edema. Pt treated for CHF and made a gradual improvement. - Pt discharged back to SNF on lasix 40mg PO BID - Pt placed on coumadin for DVT/afib - previous US left arm showed nonocclusive thrombus in IJ and SC. - Pt developed left heel injury during October admission. Pt was seen by Podiatry and placed on santyl - Pt's October 2018 hospitalization was also complicated by constipation. Pt brought back to the [place] ER 11/28/18 d/t AMS and elevated creatinine. Pt admitted to [place] for further evaluation and treatment. Past Medical Hx: Cardiomyopathy/EF 20-25% Diabetes mellitus A. fib CAD PVD Hip fracture, right HTN Non-healing ulcer of right foot CKD, stage 3 Past Surgical Hx: LLE revascularization with Dr. Diaz on 10/18/18 RLE revascularization on 10/19/18 Right foot debridement and bone biopsy with Dr. Natarajan on 10/21/18 Right hip ORIF in 2015 Previous LE vascular procedures with Dr. Haynes Family Hx: Noncontributory Social Hx: lives with no tobacco no alcohol no illicit street drugs All: NKDA DS: Diagnosis Discharge Diagnosis (1) Atrial fibrillation: Status: Acute (2) Ulcer of left heel: Status: Acute (3) Debility: Status: Acute (4) Elevated INR: Status: Acute (5) Delirium: Status: Acute (6) Right foot ulcer: Status: Acute (7) Diabetes: Status: Chronic DS: Summary Time Spent with Patient Total time spent providing and/or coordinating discharge services: Results Labs on day of discharge: Labs from last 24 hours 11/30/18 11/30/18 11/30/18 20:47 18:42 12:47 POC Glucose 229 H 232 H 208 H Preliminary micro results at discharge 11/28/18 22:15 Aerobic Blood Culture - Preliminary Blood - Peripheral No growth in 3 days Anaerobic Blood Culture - Preliminary No growth in 3 days 11/28/18 22:30 Aerobic Blood Culture - Preliminary Blood - Peripheral No growth in 3 days Anaerobic Blood Culture - Preliminary No growth in 3 days Impressions ITS Impressions Head CT 11/30/18 05:04 CONCLUSION: 1. Stable bilateral cortical atrophy and chronic white matter changes. 2. Stable exam compared to the prior study. . Abdomen X-Ray 11/30/18 08:00 CONCLUSION: Benign-appearing KUB. Chest X-Ray 11/30/18 08:00 CONCLUSION: Increasing pulmonary edema compared to the prior study. Discharge Plan Discharge Disposition Patient Disposition: 20 Discharge Condition Condition: Fair Discharge Details Date/Time: 12/01/18 02:36 Physicians Team Primary Care Provider: UNKNOWN, Attending Provider: Stalin Zamarripa Rxs /Orders / Referrals /Forms Prescriptions: No Action furosemide 40 mg Tablet 40 mg PO BID@0900,1800 Qty: 60 RF: 0 carvedilol [Coreg] 6.25 mg Tablet 6.25 mg PO BID Qty: 60 RF: 0 pantoprazole 40 mg Tablet,Delayed Release (Dr/Ec) 40 mg PO DAILY Qty: 30 RF: 0 tramadol [Ultram] 50 mg tablet 50 mg PO Q6H PRN (Reason: pain) Qty: 10 RF: 0 gabapentin 600 mg Tablet 600 mg PO TID RF: 0 clopidogrel [Plavix] 75 mg Tablet 75 mg PO DAILY RF: 0 warfarin 4 mg Tablet 4.5 mg PO DAILY RF: 0 simvastatin 20 mg Tablet 20 mg PO QPM RF: 0 losartan 100 mg Tablet 100 mg PO DAILY RF: 0 duloxetine 20 mg Capsule,Delayed Release(Dr/Ec) 20 mg PO DAILY RF: 0 Referrals: UNKNOWN, [Primary Care Provider] - See Instructions Discharge Interventions Interventions: Discharge Planning - Case Management Last Done: 11/29/18 14:14 Status ED Status: Left Department Discharge Information Discharge Date/Time: 12/01/18 02:36
== END 2018-12-01 02:36 | disposition expired | DRG 208 ==
LOC: NEPC 17:42 → NEDA 23:06 → HCIN 11-29 01:17 → HIMC 12-01 01:40
PROVIDERS: ADMIT Hospitalist; ATTEND Hospitalist
DX: G93.41 Metabolic encephalopathy; R57.0 Cardiogenic shock; N17.9 Acute kidney failure, unspecified; Z88.5 Allergy status to narcotic agent; I42.9 Cardiomyopathy, unspecified; L97.519 Non-pressure chronic ulcer of other part of right foot with unspecified severity; J18.9 Pneumonia, unspecified organism; E11.51 Type 2 diabetes mellitus with diabetic peripheral angiopathy without gangrene; I50.9 Heart failure, unspecified; L97.429 Non-pressure chronic ulcer of left heel and midfoot with unspecified severity; E11.22 Type 2 diabetes mellitus with diabetic chronic kidney disease; E11.621 Type 2 diabetes mellitus with foot ulcer; I48.2 Chronic atrial fibrillation; I25.10 Atherosclerotic heart disease of native coronary artery without angina pectoris; Z79.01 Long term (current) use of anticoagulants; N18.3 Chronic kidney disease, stage 3 (moderate); I13.0 Hypertensive heart and chronic kidney disease with heart failure and stage 1 through stage 4 chronic kidney disease, or unspecified chronic kidney disease; Z86.718 Personal history of other venous thrombosis and embolism
CPT/HCPCS: 31500; 36556; 70450; 71010; 71045; 74000; 74018; 76937; 80048; 80053; 81001; 82040; 82140; 82247; 82948; 82962; 83605; 83735; 84075; 84155; 84450; 84460; 85025; 85610; 85730; 87040; 92950; 99284; J0456; J0696; J1815; J2543; J3370; J7030; J7050